=== PATIENT | male | born 1940 | race Hispanic/Latino ===

== ENCOUNTER → 2018-04-23 | Day surgery (SDC) | payer MEDICARE, OTHER ==
[~2018-04-23] MED LIST: AMLODIPINE BESYL5 MG PO; FENTANYL CITRATE/PF 100MCG/2 ML INJ ONE; LOVASTATIN20 MG PO; METFORMIN HCL500 MG PO; MIDAZOLAM HCL 2 MG/2 ML VIAL ONE; PANTOPRAZOLE SO40 MG PO; PROPOFOL IV EMULSION 10 MG/ML 50 ML VIAL ONE; QUINAPRIL HCL40 MG PO; SUCRALFATE1 GM PO; VIT D3 PO
--- OUTSIDE RECORDS SUMMARY | 2018-04-23 06:46 | XMS REPORT | Continuity of Care Document ---
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 01/25/2015 [facility] LEFT UPPER EXTREMITY CELLULITIS Active 01/12/2015 [facility] LEFT ARM INJURY Active 01/12/2015 [facility] NEUTROPENIC SEPSIS Active 09/08/2014 [facility] FALL Active 07/10/2014 [facility] Discharge Diagnosis: Fall 07/10/2014 07/12/2014 [facility] Discharge Diagnosis: Skin tear of elbow without complication 07/10/2014 07/12/2014 [facility] Discharge Diagnosis: Left elbow contusion 07/10/2014 07/12/2014 [facility] LYMPHOMA Active 07/05/2014 [facility] INITIAL STAGING DX:202.8-BLASTIC NK-ANTON Active 01/25/2014 [facility] Diabetes mellitus<sup>2</sup> Active 12/17/2013 Problem 12/29/2017 Data migrated from [facility] on 01/30/15. [facility] ABDOMINAL OR PELVIC SWELLING, MASS, OR LUMP, EPIGASTRIC Active 12/17/2013 Condition 01/04/2014 [facility] DIABETES MELLITUS WITHOUT MENTION OF COMPLICATION, TYPE II OR UNSPECIFIED TYPE, NOT STATED UNCONTROLLED Active 12/17/2013 Condition 01/04/2014 [facility] 235.5 - [facility] Active 12/01/2013 [facility] [place] 413.9/794.31 Active 12/31/2011 [facility] CHEST PAIN Active 12/23/2011 [facility] Diabetes mellitus Active Problem 01/05/2012 [facility] Hyperlipidemia Active Problem 01/05/2012 [facility] Hypertension Active Problem 01/05/2012 [facility] Abdominal mass Resolved Problem 12/29/2017 [facility] Acid reflux Active Problem 12/29/2017 [facility] Back pain Active Problem 12/29/2017 [facility] Carpal tunnel syndrome<sup>1</sup> Resolved Problem 12/29/2017 right wrist [facility] Cholesterol level Resolved Problem 12/29/2017 [facility] Diabetes mellitus Active Problem 12/29/2017 [facility] Hyperlipidemia Active Problem 12/29/2017 [facility] Hypertension Active Problem 12/29/2017 [facility] Hypertension Active Problem 12/29/2017 [facility], [facility] Simple obesity Active Problem 12/29/2017 [facility] Age-related osteoporosis without current pathological fracture 12/17/2017 [facility] Abnormal findings on diagnostic imaging of other specified body structures 12/17/2017 [facility] Personal history of non-Hodgkin lymphomas 12/29/2017 [facility] Type 2 diabetes mellitus without complications 12/29/2017 [facility] care home use of oral hypoglycemic drugs 12/29/2017 [facility] Obesity, unspecified 12/29/2017 [facility] Gastro-esophageal reflux disease without esophagitis 12/29/2017 [facility] Essential hypertension 12/29/2017 [facility] Hyperlipidemia, unspecified 12/29/2017 [facility] Body mass index 33.0-33.9, adult 12/29/2017 [facility] CAROLYN PHUONG PERITONEUM Active [facility] LYMPHOMA NEC-EXTRNOD/NOS Active [facility] CELLULITIS OF ARM Active [facility] 202.80 Active [facility] NON-HODGKIN LYMPHOMA, UNSPECIFIED, UNSPE Active [facility] Medications Medication Details Route Status Patient Instructions Ordering Provider Order Date Source Flumazenil 0.2 mg, Route: IVP, PRN, Dosing Weight 87.955, kg, PRN Benzodiazepine Reversal, Initial dose, Start date: 09/22/17 11:05:00 CDT, Duration: 30 day, Stop date: 10/22/17 11:04:00 CDT Inactive 09/22/2017 [facility] Fentanyl 50 microgram, Route: IVP, Q5Min, Dosing Weight 87.955, kg, PRN Pain Score 7-10, Priority: Routine, Start date: 09/22/17 11:05:00 CDT, Duration: 2 doses or times, Stop date: Limited # of times Inactive 09/22/2017 [facility] Naloxone 0.4 mg, Route: IVP, Q2MIN, Dosing Weight 87.955, kg, PRN Narcotic Reversal, Start date: 09/22/17 11:05:00 CDT, Duration: 8 doses or times, Stop date: Limited # of times Inactive 09/22/2017 [facility] Albuterol 0.83 MG/ML Inhalant Solution 2.49 mg, Route: NEB, Q20Min, Dosing Weight 87.955, kg, PRN Wheezing, Priority: STAT, Start date: 09/22/17 11:05:00 CDT, Duration: 30 day, Stop date: 10/22/17 11:04:00 CDT Inactive 09/22/2017 [facility] Diphenhydramine 12.5 mg, Route: IVP, Drug form: INJ, Q6H, Dosing Weight 87.955, kg, PRN Itching, Start date: 09/22/17 11:05:00 CDT, Duration: 30 day, Stop date: 10/22/17 11:04:00 CDT Inactive 09/22/2017 [facility] Meperidine 12.5 mg, Route: IVP, Q30Min, Dosing Weight 87.955, kg, PRN Other -See Comment, For shivering, Start date: 09/22/17 11:05:00 CDT, Duration: 2 doses or times, Stop date: Limited # of times Inactive 09/22/2017 [facility] Ondansetron 4 mg, Route: IVP, ONCE, Dosing Weight 87.955, kg, PRN Nausea & Vomiting, Start date: 09/22/17 11:05:00 CDT Inactive 09/22/2017 [facility] Promethazine 6.25 mg, Route: IVPB, ONCE, Dosing Weight 87.955, kg, PRN Nausea & Vomiting, Start date: 09/22/17 11:05:00 CDT Inactive 09/22/2017 [facility] 72 HR Scopolamine 0.0139 MG/HR Transdermal Patch 1 patch, Route: TOP, Drug Form: ERFILM, Dosing Weight 87.955, kg, ONCE, Apply behind ear. Avoid use in elderly., Start date: 09/22/17 11:05:00 CDT, Stop date: 09/22/17 11:05:00 CDT No Longer Active 09/22/2017 [facility] Acetaminophen 1,000 mg, Route: IVPB, Drug form: INJ, ONCE, Dosing Weight 87.955, kg, PRN Pain Score 1-3, Start date: 09/22/17 11:05:00 CDT Inactive 09/22/2017 [facility] Oxycodone 5 mg, Route: PO, Drug form: TAB, Q4H, Dosing Weight 87.955, kg, PRN Pain Score 4-6, Start date: 09/22/17 11:05:00 CDT, Duration: 30 day, Stop date: 10/22/17 11:04:00 CDT Inactive 09/22/2017 [facility] Hydromorphone 0.5 mg, Route: IVP, Q5Min, Dosing Weight 87.955, kg, PRN Pain Score 7-10, Start date: 09/22/17 11:05:00 CDT, Duration: 4 doses or times, Stop date: Limited # of times Inactive 09/22/2017 [facility] propofol (ANES) Route: IV, Drug form: INJ, ONCE, Stop date: 09/22/17 11:00:00 CDT Inactive 09/22/2017 [facility] lidocaine (ANES) Route: IV, Drug form: INJ, ONCE, Stop date: 09/22/17 11:00:00 CDT Inactive 09/22/2017 [facility] famotidine (ANES) Route: IV, Drug form: INJ, ONCE, Stop date: 09/22/17 11:00:00 CDT Inactive 09/22/2017 [facility] fentaNYL (ANES) Route: IV, Drug form: INJ, ONCE, Stop date: 09/22/17 11:00:00 CDT Inactive 09/22/2017 [facility] ePHEDrine (ANES) Route: IV, Drug form: INJ, ONCE, Stop date: 09/22/17 11:00:00 CDT Inactive 09/22/2017 [facility] ondansetron (ANES) Route: IV, Drug form: INJ, ONCE, Stop date: 09/22/17 11:00:00 CDT Inactive 09/22/2017 [facility] ceFAZolin (ANES) 1000 mg Route: IV, Drug form: INJ, Start date: 09/22/17 10:22:00 CDT, Stop date: 09/22/17 11:22:00 CDT Inactive 09/22/2017 [facility] Lactated Ringers Injection IV (ANES) 1000 mL Route: IV, Total Volume: 1,000, Start date: 09/22/17 10:22:00 CDT, Stop date: 09/22/17 11:22:00 CDT Inactive 09/22/2017 [facility] Calcium Chloride 0.0014 MEQ/ML / Potassium Chloride 0.004 MEQ/ML / Sodium Chloride 0.103 MEQ/ML / Sodium Lactate 0.028 MEQ/ML Injectable Solution 1,000 mL, Rate: 25 ml/hr, Infuse over: 40 hr, Route: IV, Dosing Weight 87.955 kg, Total Volume: 1,000, Start date: 09/22/17 10:09:00 CDT, Duration: 30 day, Stop date: 10/22/17 10:08:00 CDT, 2.03, m2 Inactive 09/22/2017 [facility] sitaGLIPtin 25 mg oral tablet 25 mg=1 tab, PO, Daily, # 30 tab, 0 Refill(s) Active 09/18/2017 [facility] sucralfate 1 g oral tablet 1 gm=1 tab, PO, QID, # 120 tab, 0 Refill(s) Active 09/18/2017 [facility] Ancef 2 gm, Route: IVPB, ONCE, Dosing Weight 87.955, kg, Start date: 09/18/17 15:38:00 CDT, Stop date: 09/18/17 15:38:00 CDT, Surgical Prophylaxis Only; For patients No Longer Active 09/18/2017 [facility] quinapril 40 mg oral tablet 40 mg=1 tab, PO, Daily, 0 Refill(s) Active 09/16/2017 [facility] lovastatin 20 mg oral tablet 20 mg=1 tab, PO, Daily, 0 Refill(s) Active 09/16/2017 [facility] Januvia 50 mg, 2 tab, Route: PO, Drug form: TAB, QPM, Dosing Weight 80.455, kg, Start date: 01/16/15 17:00:00, Duration: 30 day, Stop date: 02/14/15 17:00:00Notes: Same as Januvia Inactive 01/16/2015 [facility] Keflex 500 mg, 2 cap, Route: PO, Drug form: CAP, ABXQ6H, Dosing Weight 80.455, kg, Start date: 01/16/15 15:00:00, Duration: 14 day, Stop date: 01/30/15 9:00:00Notes: Take on empty stomach. (Same As: Keflex) Inactive 01/16/2015 [facility] sitaGLIPtin 25 mg oral tablet 50 mg=2 tab, PO, QPM, 0 Refill(s) Active 01/16/2015 [facility] pyridoxine 100 mg oral tablet 100 mg=1 tab, PO, Daily, 0 Refill(s) Active 01/16/2015 [facility] docusate sodium 100 mg oral capsule 100 mg=1 cap, PO, Daily, PRN as needed for constipation, 0 Refill(s) Active 01/16/2015 [facility] Metformin 1,000 mg, PO, BID-Meals, 0 Refill(s) Active 01/16/2015 [facility] ramipril 5 mg oral capsule 10 mg=2 cap, PO, Daily, 0 Refill(s) Active 01/16/2015 [facility] Cephalexin 500 MG Oral Capsule [Keflex] 500 mg, PO, ABXQ6H, X 14 day, # 56 caplet, 0 Refill(s) Active 01/16/2015 [facility] Glipizide 5 MG Oral Tablet 2.5 mg=0.5 tab, PO, Before Breakfast, # 30 tab, 0 Refill(s) Active 01/16/2015 [facility] amLODIPine 5 mg oral tablet 5 mg=1 tab, PO, Daily, # 30 tab, 0 Refill(s) Active 01/16/2015 [facility] sitagliptin 50 MG Oral Tablet [Januvia] 50 mg=1 tab, PO, Daily, # 30 tab, 0 Refill(s) Inactive 01/16/2015 [facility] Glucotrol 2.5 mg, 0.5 tab, Route: PO, Drug form: TAB, Daily, Start date: 01/16/15 9:00:00, Duration: 30 day, Stop date: 02/14/15 9:00:00Notes: (Same as: Glucotrol) 30 min before meals. Inactive 01/16/2015 [facility] Amlodipine 5 mg, 1 tab, Route: PO, Drug form: TAB, Daily, Dosing Weight 80.455, kg, Start date: 01/16/15 9:00:00, Duration: 30 day, Stop date: 02/14/15 9:00:00Notes: (Same as: Norvasc) Inactive 01/16/2015 [facility] Ancef + Sodium Chloride 0.9% IV 100 mL 1 gm, Route: IVPB, ABXQ8H, Dosing Weight 80.455, kg, Start date: 01/15/15 22:00:00, Duration: 30 day, Stop date: 02/14/15 14:00:00Notes: (Same As: Ancef, Kefzol) MEDICATION WASTE Product Size: 1000 mg Product Wasted: ___ mg No Longer Active 01/16/2015 [facility] Glucotrol 2.5 mg, 0.5 tab, Route: PO, Drug form: TAB, BID- Meals, Start date: 01/14/15 17:00:00, Duration: 30 day, Stop date: 02/13/15 8:00:00Notes: (Same as: Glucotrol) 30 min before meals. No Longer Active 01/14/2015 [facility] potassium chloride 20 mEq, 1 tab, Route: PO, Drug form: ERTAB, ONCE, Dosing Weight 80.455, kg, Priority: NOW, Start date: 01/14/15 11:16:00, Stop date: 01/14/15 11:16:00Notes: (Same as: K-Dur 20) "Do Not Crush" With food and full glass of water Inactive 01/14/2015 [facility] Januvia 100 mg, 4 tab, Route: PO, Drug form: TAB, QPM, Dosing Weight 80.455, kg, Start date: 01/13/15 17:00:00, Stop date: 02/11/15 17:00:00Notes: Same as Januvia No Longer Active 01/13/2015 [facility] Lovastatin 20 mg, Route: PO, Drug form: TAB, QPM, Dosing Weight 80.455, kg, Start date: 01/13/15 17:00:00, Duration: 30 day, Stop date: 02/11/15 17:00:00 No Longer Active 01/13/2015 [facility] Lipitor 10 mg, 1 tab, Route: PO, Drug form: TAB, QPM, Start date: 01/13/15 17:00:00, Duration: 30 day, Stop date: 02/11/15 17:00:00Notes: (Same As: Lipitor) No Longer Active 01/13/2015 [facility] Zofran 4 mg, 2 mL, Route: IV, Drug form: INJ, Q6H, Dosing Weight 80.455, kg, PRN Nausea, Start date: 01/13/15 14:50:00, Duration: 30 day, Stop date: 02/12/15 14:49:00Notes: (Same as: Zofran) MEDICATION WASTE Product Size: 4 mg Product Wasted: ___ mg No Longer Active 01/13/2015 [facility] Insulin, Aspart, Human 8 unit, 0.08 mL, Route: SUB-Q, Drug form: SOLN, TID-Before Meals, Dosing Weight 80.455, kg, PRN Blood Glucose Results, Start date: 01/13/15 14:24:00, Duration: 30 day, Stop date: 02/12/15 14:23:00Notes: Roll in palms of hands gently; Do not shake vigorously. (Same as: NovoLOG) "single patient use only" Stable for 28 days at room temperature. Expires in days from Date No Longer Active 01/13/2015 [facility] Dextrose 50% Syringe 25 gm, 50 mL, Route: IVP, Drug Form: INJ, Dosing Weight 80.455, kg, PRN, PRN Blood Glucose Results, Start date: 01/13/15 14:24:00, Duration: 30 day, Stop date: 02/12/15 14:23:00 No Longer Active 01/13/2015 [facility] Glucagon 1 mg, Route: IM, Drug form: PDR/INJ, PRN, Dosing Weight 80.455, kg, PRN Blood Glucose Results, Start date: 01/13/15 14:24:00, Duration: 30 day, Stop date: 02/12/15 14:23:00 No Longer Active 01/13/2015 [facility] NS 1,000 mL 1,000 mL, Rate: 100 ml/hr, Infuse over: 10 hr, Route: IV, Dosing Weight 80.455 kg, Total Volume: 1,000, Start date: 01/13/15 12:44:00, Duration: 30 day, Stop date: 02/12/15 12:43:00 No Longer Active 01/13/2015 [facility] Sodium Chloride 0.154 MEQ/ML Injectable Solution 250 mL, 250 ml/hr, Infuse Over: 1 hr, Route: IV, 250, Drug form: INJ, ONCE, Priority: STAT, Dosing Weight 80.455 kg, Start date: 01/13/15 12:44:00, Duration: 1 doses or times, Stop date: 01/13/15 12:44:00 Inactive 01/13/2015 [facility] Enoxaparin 40 mg, 0.4 mL, Route: SUB-Q, Drug form: INJ, [id number], Dosing Weight 80.455, kg, Start date: 01/13/15 12:00:00, Duration: 30 day, Stop date: 02/11/15 12:00:00Notes: (Same as: Lovenox) No Longer Active 01/13/2015 [facility] quinapril 40 mg, Route: PO, Drug form: TAB, Daily, Dosing Weight 80.455, kg, Start date: 01/13/15 9:00:00, Duration: 30 day, Stop date: 02/11/15 9:00:00 No Longer Active 01/13/2015 [facility] Vitamin B6 100 mg, 1 tab, Route: PO, Drug form: TAB, Daily, Dosing Weight 80.455, kg, Start date: 01/13/15 9:00:00, Duration: 30 day, Stop date: 02/11/15 9:00:00Notes: (Same as: Vitamin B6) No Longer Active 01/13/2015 [facility] pioglitazone 30 mg, 1 tab, Route: PO, Drug form: TAB, Daily, Dosing Weight 80.455, kg, Start date: 01/13/15 9:00:00, Duration: 30 day, Stop date: 02/11/15 9:00:00Notes: (Same as: Actos) No Longer Active 01/13/2015 [facility] pantoprazole 40 mg, 1 tab, Route: PO, Drug form: ECTAB, Daily, Dosing Weight 80.455, kg, Start date: 01/13/15 9:00:00, Duration: 30 day, Stop date: 02/11/15 9:00:00Notes: Tablet should not be chewed or crushed. ( Same as: Protonix) No Longer Active 01/13/2015 [facility] Glipizide 2.5 MG / Metformin hydrochloride 500 MG Oral Tablet 2 tab, Route: PO, Drug Form: TAB, Dosing Weight 80.455, kg, BID, Start date: 01/13/15 9:00:00, Duration: 30 day, Stop date: 02/11/15 17:00:00 No Longer Active 01/13/2015 [facility] gabapentin 300 MG Oral Capsule 300 mg, 1 cap, Route: PO, Drug form: CAP, BID, Dosing Weight 80.455, kg, Start date: 01/13/15 9:00:00, Duration: 30 day, Stop date: 02/11/15 17:00:00Notes: (Same as: Neurontin) No Longer Active 01/13/2015 [facility] Amlodipine 10 mg, 2 tab, Route: PO, Drug form: TAB, Daily, Dosing Weight 80.455, kg, Start date: 01/13/15 9:00:00, Duration: 30 day, Stop date: 02/11/15 9:00:00Notes: (Same as: Norvasc) No Longer Active 01/13/2015 [facility] Allopurinol 300 mg, 1 tab, Route: PO, Drug form: TAB, Daily, Dosing Weight 80.455, kg, Start date: 01/13/15 9:00:00, Duration: 30 day, Stop date: 02/11/15 9:00:00Notes: (Same as: Zyloprim) No Longer Active 01/13/2015 [facility] Altace 10 mg, 2 cap, Route: PO, Drug form: CAP, Daily, Start date: 01/13/15 9:00:00, Duration: 30 day, Stop date: 02/11/15 9:00:00Notes: (Same as:Altace) No Longer Active 01/13/2015 [facility] Glucotrol 5 mg, 1 tab, Route: PO, Drug form: TAB, BID-Meals, Start date: 01/13/15 8:00:00, Duration: 30 day, Stop date: 02/11/15 17:00:00Notes: (Same as: Glucotrol) 30 min before meals. No Longer Active 01/13/2015 [facility] Glucophage 1,000 mg, 2 tab, Route: PO, Drug form: TAB, BID-Meals, Start date: 01/13/15 8:00:00, Duration: 30 day, Stop date: 02/11/15 17:00:00Notes: (Same as: Glucophage) Take with meal No Longer Active 01/13/2015 [facility] Sucralfate 1 gm, 1 tab, Route: PO, Drug form: TAB, Before Meals & Bedtime, Dosing Weight 80.455, kg, Start date: 01/13/15 7:30:00, Duration: 30 day, Stop date: 02/11/15 21:00:00Notes: May interfere w/enteral f eeds - Take 1 hr before or 2 hr after antacids, dairy pdt, meals & minerals - On empty stomach. (Same As: Carafate) No Longer Active 01/13/2015 [facility] Vancomycin 1 gm, 200 mL, Route: IVPB, Drug form: INJ, [id number], Dosing Weight 79.545, kg, Start date: 01/13/15 7:00:00, Duration: 30 day, Stop date: 02/11/15 19:00:00Notes: TIME CRITICAL MEDICATION No Longer Active 01/13/2015 [facility] Vancomycin 1,200 mg, Route: IVPB, Drug form: INJ, ABXQ8H, Dosing Weight 79.545, kg, TIME CRITICAL MEDICATION, Start date: 01/13/15 3:00:00, Duration: 30 day, Stop date: 02/11/15 19:00:00Notes: TIME CRITICAL MED ICATION (Same As: Vancocin) Infusion rate 2001 mg: infuse over 2.5 hours MEDICATION WASTE Product Size: 1000 mg Product Wasted: ___ mg No Longer Active 01/13/2015 [facility] Docusate 100 mg, 1 cap, Route: PO, Drug form: CAP, Daily, Dosing Weight 80.455, kg, PRN as needed for constipation, Start date: 01/12/15 21:13:00, Duration: 30 day, Stop date: 02/11/15 21:12:00Notes: (Same as: Colace) (Do Not Crush) No Longer Active 01/13/2015 [facility] Acetaminophen 325 MG / Hydrocodone Bitartrate 5 MG Oral Tablet 1 tab, Route: PO, Drug Form: TAB, Dosing Weight 80.455, kg, Q4H, PRN Pain Score 1-3, Start date: 01/12/15 21:11:00, Duration: 30 day, Stop date: 02/11/15 21:10:00Notes: (Same as: Valier 325/5) Do not exceed 4gm/day of acetaminophen. No Longer Active 01/13/2015 [facility] Acetaminophen 325 MG / Hydrocodone Bitartrate 5 MG Oral Tablet 2 tab, Route: PO, Drug Form: TAB, Dosing Weight 80.455, kg, Q4H, PRN Pain Score 4-6, Start date: 01/12/15 21:10:00, Duration: 30 day, Stop date: 02/11/15 21:09:00Notes: (Same as: Valier 325/5) Do not exceed 4gm/day of acetaminophen. No Longer Active 01/13/2015 [facility] Clindamycin 600 mg, 4 mL, Route: IVPB, ABXQ8H, Dosing Weight 79.545, kg, Start date: 01/12/15 21:00:00, Duration: 30 day, Stop date: 02/11/15 13:00:00Notes: (clindamycin 150 mg/1 ml (600 mg/4 ml VL) INJ) (Same As: Cleocin) No Longer Active 01/13/2015 [facility] pantoprazole 40 mg oral enteric coated tablet 40 mg=1 tab, PO, Daily, # 30 tab, 0 Refill(s) Active 01/13/2015 [facility] lovastatin 20 mg oral tablet 20 mg=1 tab, PO, QPM, # 30 tab, 0 Refill(s) No Longer Active 01/13/2015 [facility] gabapentin 300 MG Oral Capsule 300 mg=1 cap, PO, BID, # 90 cap, 1 Refill(s) Active 01/13/2015 [facility] Vitamin D3 400 intl units oral capsule 400 IntlUnit=1 cap, PO, Daily, 0 Refill(s) Active 01/13/2015 [facility] Vitamin B6 100 mg oral tablet 100 mg=1 tab, PO, Daily, # 10 tab, 0 Refill(s) Active 01/13/2015 [facility] allopurinol 300 mg oral tablet 300 mg=1 tab, PO, Daily, # 30 tab, 0 Refill(s) Active 01/13/2015 [facility] pioglitazone 30 mg oral tablet 30 mg=1 tab, PO, Daily, # 30 tab, 0 Refill(s) No Longer Active 01/13/2015 [facility] Docusate Daily, 0 Refill(s) No Longer Active 01/13/2015 [facility] sucralfate 1 g oral tablet 1 gm=1 tab, PO, Before Meals & Bedtime, # 120 tab, 3 Refill(s) Active 01/13/2015 [facility] sitagliptin 100 MG Oral Tablet [Januvia] 100 mg=1 tab, PO, QPM, # 30 tab, 0 Refill(s) No Longer Active 01/13/2015 [facility] Insulin, Aspart, Human 2 unit, 0.02 mL, Route: SUB-Q, Drug form: SOLN, TID-Before Meals, Dosing Weight 79.545, kg, PRN Blood Glucose Results, Start date: 01/12/15 19:24:00, Duration: 30 day, Stop date: 02/11/15 19:23:00Notes: Roll in palms of hands gently; Do not shake vigorously. (Same as: NovoLOG) "single patient use only" Stable for 28 days at room temperature. Expires in days from Date No Longer Active 01/13/2015 [facility] Dextrose 50% Syringe 12.5 gm, 25 mL, Route: IVP, Drug Form: INJ, Dosing Weight 79.545, kg, PRN, PRN Blood Glucose Results, Start date: 01/12/15 19:24:00, Duration: 30 day, Stop date: 02/11/15 19:23:00 No Longer Active 01/13/2015 [facility] Glucagon 1 mg, Route: IM, Drug form: PDR/INJ, PRN, Dosing Weight 79.545, kg, PRN Blood Glucose Results, Start date: 01/12/15 19:24:00, Duration: 30 day, Stop date: 02/11/15 19:23:00 No Longer Active 01/13/2015 [facility] Saline Flush 0.9% 10 mL, Route: IVP, Drug Form: INJ, Dosing Weight 79.545, kg, PRN, PRN Line Flush, Start date: 01/12/15 17:55:00, Duration: 30 day, Stop date: 02/11/15 17:54:00Notes: (Same as: BD Posiflush) Inactive 01/12/2015 [facility] Vancomycin 2,000 mg, 500 mL, Route: IVPB, Drug form: SOLN, ONCE, Dosing Weight 79.545, kg, TIME CRITICAL MEDICATION, Priority: STAT, Start date: 01/12/15 17:55:00, Stop date: 01/12/15 17:55:00Notes: TIME CRITICAL MEDICATION Same as: Vancocin Infusion rate 2001 mg: infuse over 2.5 hours Inactive 01/12/2015 [facility] Acetaminophen 325 MG / Hydrocodone Bitartrate 10 MG Oral Tablet [Valier 10/325] 1 tab, Route: PO, Dosing Weight 81.818, kg, ONCE, Start date: 12/31/13 15:41:00, Stop date: 12/31/13 15:41:00 Inactive 12/31/2013 [facility] Hydralazine 10 mg, Route: IVP, Q20Min, Dosing Weight 81.818, kg, PRN Elevated BP, Start date: 12/31/13 15:41:00, Duration: 2 doses or times, Stop date: Limited # of times Inactive 12/31/2013 [facility] Hydromorphone 0.5 mg, Route: IVP, Q5Min, Dosing Weight 81.818, kg, PRN Pain Score 7-10, Start date: 12/31/13 15:41:00, Duration: 4 doses or times, Stop date: Limited # of times Inactive 12/31/2013 [facility] Fentanyl 25 microgram, Route: IVP, Q5Min, Dosing Weight 81.818, kg, PRN Pain Score 4-6, Start date: 12/31/13 15:41:00, Duration: 4 doses or times, Stop date: Limited # of times Inactive 12/31/2013 [facility] Naloxone 0.04 mg, Route: IVP, Q2MIN, Dosing Weight 81.818, kg, PRN Narcotic Reversal, Start date: 12/31/13 15:41:00, Duration: 8 doses or times, Stop date: Limited # of times Inactive 12/31/2013 [facility] Oxycodone 5 mg, Route: PO, Drug form: TAB, Q4H, Dosing Weight 81.818, kg, PRN Pain Score 4-6, Start date: 12/31/13 15:41:00, Duration: 30 day, Stop date: 01/30/14 15:40:00 Inactive 12/31/2013 [facility] Flumazenil 0.2 mg, Route: IVP, PRN, Dosing Weight 81.818, kg, PRN Benzodiazepine Reversal, Initial dose, Start date: 12/31/13 15:41:00, Duration: 30 day, Stop date: 01/30/14 15:40:00 Inactive 12/31/2013 [facility] Metoprolol 1 mg, Route: IVP, Q5Min, Dosing Weight 81.818, kg, PRN Other -See Comment, Start date: 12/31/13 15:41:00, Duration: 5 doses or times, Stop date: Limited # of times Inactive 12/31/2013 [facility] Ondansetron 4 mg, Route: IVP, ONCE, Dosing Weight 81.818, kg, PRN Nausea & Vomiting, Start date: 12/31/13 15:41:00 Inactive 12/31/2013 [facility] Docusate Sodium 100 MG Oral Capsule [Colace] 100 mg=1 cap, PO, BID, Constipation, # 20 cap, 0 Refill(s) Active 12/31/2013 [facility] Acetaminophen 325 MG / Hydrocodone Bitartrate 5 MG Oral Tablet [Valier 5/325] 1 tab, PO, Q4-6H, as needed for pain, # 30 tab, 0 Refill(s) Active 12/31/2013 [facility] Calcium Chloride 0.0014 MEQ/ML / Potassium Chloride 0.004 MEQ/ML / Sodium Chloride 0.103 MEQ/ML / Sodium Lactate 0.028 MEQ/ML Injectable Solution 1,000 mL, Rate: 25 ml/hr, Infuse over: 40 hr, Route: IV, Dosing Weight 81.818 kg, Total Volume: 1,000, Start date: 12/31/13 10:04:00, Duration: 30 day, Stop date: 01/30/14 10:03:00 Inactive 12/31/2013 [facility] Cefoxitin 2 gm, Route: IVPB, ONCALL, Dosing Weight 85, kg, Start date: 12/28/13 16:00:00, Duration: 5 day, Stop date: 01/02/14 15:59:00Notes: (Same As: Mefoxin) No Longer Active 12/28/2013 [facility] ibuprofen 800 mg oral tablet 800 mg=1 tab, PO, Q8H, Pain, Take with food, # 30 tab, 0 Refill(s)Special Instructions: Take with food Active 12/28/2013 [facility] Vitamin D3 2000 intl units oral capsule 0 Refill(s) Active 12/28/2013 [facility] AMLODIPINE BESY-BENAZEPRIL HCL CAPS Active 12/17/[facility] GLIPIZIDE-METFORMIN HCL 2.5-500 MG TABS Active 12/17/2013 [facility] QUINAPRIL HCL 40 MG TABS Active 12/17/2013 [facility] Lipitor 10 mg, 1 tab, Route: PO, Drug form: TAB, QPM, Start date: 12/24/11 17:00:00, Duration: 30 day, Stop date: 01/22/12 17:00:00 PO No Longer Active [facility] 12/24/2011 [facility] lovastatin 20 mg, Route: PO, Drug form: TAB, QNoon, Start date: 12/24/11 12:00:00, Duration: 30 day, Stop date: 01/22/12 12:00:00 PO No Longer Active [facility] 12/24/2011 [facility] Altace 10 mg, 2 cap, Route: PO, Drug form: CAP, Daily, Start date: 12/24/11 9:00:00, Duration: 30 day, Stop date: 01/22/12 9:00:00 PO No Longer Active [facility] 12/24/2011 [facility] olmesartan 10 mg, 2 tab, Route: PO, Drug form: TAB, Daily, Start date: 12/24/11 9:00:00, Duration: 30 day, Stop date: 01/22/12 9:00:00 PO No Longer Active [facility] 12/24/2011 [facility] Glucophage 500 mg, 1 tab, Route: PO, Drug form: TAB, Daily, Start date: 12/24/11 9:00:00, Duration: 30 day, Stop date: 01/22/12 9:00:00 PO No Longer Active [facility] 12/24/2011 [facility] DiaBeta 2.5 mg, 1 tab, Route: PO, Drug form: TAB, Daily, Start date: 12/24/11 9:00:00, Duration: 30 day, Stop date: 01/22/12 9:00:00 PO No Longer Active [facility] 12/24/2011 [facility] quinapril 40 mg, Route: PO, Drug form: TAB, Daily, Start date: 12/24/11 9:00:00, Duration: 30 day, Stop date: 01/22/12 9:00:00 PO No Longer Active [facility] 12/24/2011 [facility] glipiZIDE-metformin 2.5 mg-250 mg oral tablet 1 tab, Route: PO, Drug Form: TAB, Daily, Start date: 12/24/11 9:00:00, Duration: 30 day, Stop date: 01/22/12 9:00:00 PO No Longer Active [facility] 12/24/2011 [facility] amLODipine 10 mg, 2 tab, Route: PO, Drug form: TAB, Daily, Start date: 12/24/11 9:00:00, Duration: 30 day, Stop date: 01/22/12 9:00:00 PO No Longer Active [facility] 12/24/2011 [facility] Saline Flush 0.9% 5 ml, Route: IVP, Drug Form: INJ, Q12H, Start date: 12/23/11 21:00:00, Duration: 30 day, Stop date: 01/22/12 9:00:00 IVP No Longer Active [facility] 12/24/2011 [facility] Ambien 5 mg, 1 tab, Route: PO, Drug form: TAB, Bedtime, PRN Insomnia, Start date: 12/23/11 18:57:00, Duration: 30 day, Stop date: 01/22/12 18:56:00 PO No Longer Active [facility] 12/23/2011 [facility] Tylenol 650 mg, 2 tab, Route: PO, Drug form: TAB, Q4H, PRN Pain, Start date: 12/23/11 18:57:00, Duration: 30 day, Stop date: 01/22/12 18:56:00 PO No Longer Active [facility] 12/23/2011 [facility] aspirin 325 mg tablet, enteric coated 325 mg, 1 tab, Route: PO, Drug form: ECTAB, Q24H, Start date: 12/23/11 18:00:00, Duration: 30 day, Stop date: 01/21/12 18:00:00 PO No Longer Active [facility] 12/23/2011 [facility] nitroglycerin 0.4 mg sublingual tablet 0.4 mg, 1 tab, Route: SL, Drug form: TAB, Q5Min, PRN Chest Pain, Start date: 12/23/11 17:50:00, Duration: 30 day, Stop date: 01/22/12 17:49:00 SL No Longer Active [facility] 12/23/2011 [facility] atropine 0.5 mg, 5 mL, Route: IVP, Drug form: INJ, PRN, PRN Bradycardia, Start date: 12/23/11 17:50:00, Duration: 30 day, Stop date: 01/22/12 17:49:00 IVP No Longer Active [facility] 12/23/2011 [facility] insulin aspart 1 unit, 0.01 mL, Route: SUB-Q, Drug form: SOLN, Bedtime, PRN Blood Glucose Results, Start date: 12/23/11 17:13:00, Duration: 30 day, Stop date: 01/22/12 17:12:00 SUB-Q No Longer Active [facility] 12/23/2011 [facility] glucagon 1 mg, Route: IM, Drug form: PDR/INJ, PRN, PRN Blood Glucose Results, Start date: 12/23/11 17:13:00, Duration: 30 day, Stop date: 01/22/12 17:12:00 IM No Longer Active [facility] 12/23/2011 [facility] Dextrose 50% Syringe 12.5 gm, 25 mL, Route: IVP, Drug Form: INJ, PRN, PRN Blood Glucose Results, Start date: 12/23/11 17:13:00, Duration: 30 day, Stop date: 01/22/12 17:12:00 IVP No Longer Active [facility] 12/23/2011 [facility] Saline Flush 0.9% 5 ml, Route: IVP, Drug Form: INJ, PRN, PRN Line Flush, Start date: 12/23/11 17:13:00, Duration: 30 day, Stop date: 01/22/12 17:12:00 IVP No Longer Active [facility] 12/23/2011 [facility] morphine Sulfate 2 mg, 1 mL, Route: IVP, Drug form: INJ, Q15Min, PRN Chest Pain, Start date: 12/23/11 17:13:00, Duration: 2 doses or times, Stop date: Limited # of times IVP No Longer Active [facility] 12/23/2011 [facility] nitroglycerin SL Tab 0.4 mg, 1 tab, Route: SL, Drug form: TAB, Q5Min, PRN Chest Pain, Start date: 12/23/11 17:13:00, Duration: 3 doses or times, Stop date: Limited # of times SL No Longer Active [facility] 12/23/2011 [facility] codeine-promethazine 10 mg-6.25 mg/5 mL oral syrup 5 mL, PO, Q4H, PRN, as needed for cough, Substitution Allowed, Soft Stop PO On Hold 12/23/2011 [facility] quinapril 40 mg oral tablet 40 mg, 1 tab, PO, Daily, Substitution Allowed PO On Hold [facility] 12/23/2011 [facility] amLODipine 10 mg oral tablet 10 mg, 1 tab, PO, Daily, Substitution Allowed PO On Hold [facility] 12/23/2011 [facility] lovastatin 20 mg oral tablet 20 mg, 1 tab, PO, QNoon, Substitution Allowed PO On Hold [facility] 12/23/2011 [facility] Janumet 50 mg/500 mg oral tablet 1 tab, PO, BID, Substitution Allowed, Soft Stop PO On Hold [facility] 12/23/2011 [facility] Saline Flush 0.9% 5 ml, Route: IVP, Drug Form: INJ, PRN, PRN Line Flush, Start date: 12/23/11 15:38:00, Duration: 24 hr, Stop date: 12/24/11 15:37:00 IVP No Longer Active [facility] 12/23/2011 [facility] Allergies, Adverse Reactions, Alerts Substance Category Reaction Severity Reaction type Status Date Reported Comments Source doxycycline Assertion Drug allergy Active [facility] Immunizations Immunization Date Given Site Status Last Updated Comments Source pneumococcal 23-valent vaccine 12/03/2013 Left Deltoid completed [facility] Results Order Name Results Value Reference Range Date Interpretation Comments Source SPECIAL CHEMISTRY Hgb A1C 6.5 % <=5.6 % 09/18/2017 [facility] CHEM PANEL A/G Ratio 1.3 0.7 - 1.6 09/18/2017 [facility] CHEM PANEL Globulin 3.0 g/dL 2.7 - 4.2 09/18/2017 [facility] CHEM PANEL B/C Ratio 11 6 - 25 09/18/2017 [facility] CHEM PANEL AGAP 7.2 meq/L 10.0 - 20.0 09/18/2017 [facility] CHEM PANEL eGFR 87 mL/min/1.73m2 09/18/2017 Result Comment: The eGFR is calculated using the CKD-EPI formula. In most young, healthy individuals the eGFR will be >90 mL/min/1.73m2. The eGFR declines with age. An eGFR of 60-89 may be normal in some populations, particularly the elderly, for whom the CKD-EPI formula has not been extensively validated. Use of the eGFR is not recommended in the following populations: Individuals with unstable creatinine concentrations, including patients and those with serious co-morbid conditions. Patients with extremes in muscle mass or diet. The data above are obtained from the National Kidney Disease Education Program (NKDEP) which additionally recommends that when the eGFR is used in patients with extremes of body mass index for purposes of drug dosing, the eGFR should be multiplied by the estimated BMI. [facility] CHEM PANEL AST 22 unit/L 0 - 37 09/18/2017 [facility] CHEM PANEL ALT 27 unit/L 0 - 65 09/18/2017 [facility] CHEM PANEL Bili Total 0.3 mg/dL 0.2 - 1.3 09/18/2017 [facility] CHEM PANEL Alk Phos 64 unit/L 39 - 136 09/18/2017 [facility] CHEM PANEL Total Protein 6.9 g/dL 6.4 - 8.4 09/18/2017 [facility] CHEM PANEL Albumin Lvl 3.9 g/dL 3.5 - 5.0 09/18/2017 [facility] CHEM PANEL BUN 9 mg/dL 7 - 22 09/18/2017 [facility] CHEM PANEL Glucose Lvl 72 mg/dL 70 - 99 09/18/2017 [facility] CHEM PANEL Creatinine Lvl 0.80 mg/dL 0.50 - 1.40 09/18/2017 [facility] CHEM PANEL CO2 31 meq/L 24 - 32 09/18/2017 [facility] CHEM PANEL Chloride Lvl 107 meq/L 95 - 109 09/18/2017 [facility] CHEM PANEL Calcium Lvl 8.6 mg/dL 8.5 - 10.5 09/18/2017 [facility] CHEM PANEL Potassium Lvl 4.2 meq/L 3.5 - 5.1 09/18/2017 [facility] CHEM PANEL Sodium Lvl 141 meq/L 135 - 145 09/18/2017 [facility] RBC 4.14 M/CMM 4.70 - 6.10 09/18/2017 [facility] Hgb 12.7 g/dL 14.0 - 18.0 09/18/2017 [facility] WBC 6.2 K/CMM 3.7 - 10.4 09/18/2017 [facility] MCV 92.2 fL 80.0 - 94.0 09/18/2017 [facility] MCH 30.6 pg 27.0 - 31.0 09/18/2017 [facility] Hct 38.2 % 42.0 - 54.0 09/18/2017 [facility] Platelet 132 K/CMM 133 - 450 09/18/2017 [facility] MPV 12.1 fL 7.4 - 10.4 09/18/2017 [facility] RDW 13.3 % 11.5 - 14.5 09/18/2017 [facility] MCHC 33.2 g/dL 32.0 - 36.0 09/18/2017 [facility] RBC Morph Normal (09/18/17 3:39 PM) 09/18/2017 [facility] Lymphocytes 29.1 % 20.0 - 40.0 09/18/2017 [facility] Segs 58.9 % 45.0 - 75.0 09/18/2017 [facility] Basophils 0.8 % 0.0 - 1.0 09/18/2017 [facility] Segs-Bands # 3.7 K/CMM 1.5 - 8.1 09/18/2017 [facility] Lymphocytes # 1.8 K/CMM 1.0 - 5.5 09/18/2017 [facility] Eosinophils 4.0 % 0.0 - 4.0 09/18/2017 [facility] Large Plt Few 09/18/2017 [facility] Eosinophils # 0.2 K/CMM 0.0 - 0.5 09/18/2017 [facility] Monocytes 7.2 % 2.0 - 12.0 09/18/2017 [facility] Monocytes # 0.4 K/CMM 0.0 - 0.8 09/18/2017 [facility] CHEM PANEL eGFR 83 mL/min/1.73m2 09/10/2017 Result Comment: The eGFR is calculated using the CKD-EPI formula. In most young, healthy individuals the eGFR will be >90 mL/min/1.73m2. The eGFR declines with age. An eGFR of 60-89 may be normal in some populations, particularly the elderly, for whom the CKD-EPI formula has not been extensively validated. Use of the eGFR is not recommended in the following populations: Individuals with unstable creatinine concentrations, including patients and those with serious co-morbid conditions. Patients with extremes in muscle mass or diet. The data above are obtained from the National Kidney Disease Education Program (NKDEP) which additionally recommends that when the eGFR is used in patients with extremes of body mass index for purposes of drug dosing, the eGFR should be multiplied by the estimated BMI. [facility] CHEM [facility] Creatinine 0.9 mg/dL 0.5 - 1.4 09/10/2017 [facility] Chest/Abdomen/Pelvis w IV contrast CT Chest/Abdomen/Pelvis w IV contrast CT EXAM: CT of the chest, abdomen, and pelvis with IV contrast INDICATION: Follicular lymphoma, follow-up COMPARISON: 01/13/2015 CT chest and abdomen, 02/03/2016 PET/CT Technique: Axial CT images through the chest, abdomen, and pelvis were obtained with IV contrast. Coronal and sagittal reformats were obtained. Contrast: 100 cc of IV Visipaque contrast material was used for the exam. Oral contrast was administered. CT Radiation Dose DLP 866 mGy-cm FINDINGS: CHEST: 3 mm left upper lobe pulmonary nodule is noted on series 4 image 35. No other pulmonary nodules identified. No consolidation, pneumothorax, or pleural effusion identified. No endobronchial abnormalities evident. No threshold enlarged hilar, mediastinal, or axillary lymph nodes identified. No cardiomegaly or pericardial effusion. Main pulmonary artery and thoracic aorta are normal in caliber. ABDOMEN: Liver, spleen, adrenal glands, and pancreas are within normal limits. Gallbladder is normal. No hydroureteronephrosis or urolithiasis identified. No focal renal lesions evident. Small bowel and colon are nondilated. Oral contrast reaches the transverse colon. The appendix is normal. Abdominal aorta is normal in caliber. Soft tissue attenuation the partially surrounds the celiac artery. There is near-complete circumferential soft tissue attenuation around the superior mesenteric artery and its branches in the central mesentery. The soft tissue attenuation measures up to 7.1 x 6.1 cm in maximal axial dimension, relatively unchanged in size dating back to at least 01/13/2015. No threshold enlarged periaortic, retroperitoneal, or mesenteric lymph nodes identified. PELVIS: Circumferential bladder wall thickening is similar to previous studies and likely represents normal variation. No pelvic mass, free fluid, or lymphadenopathy identified. No suspicious lytic or blastic osseous lesions evident. IMPRESSION: Soft tissue attenuation surrounds the superior mesenteric artery and branches in the central mesenteric root, relatively unchanged dating back to 01/13/2015. PET/CT may be helpful to assess for residual metabolic activity. No evidence for new or worsening lymphoma/metastatic disease otherwise identified. No acute cardiopulmonary findings. SL: [id number] 09/10/2017 - - Read by: Luisito Holliday MD Dictated Date/time: 09/10/17 15:24 Electronically Signed by: Luisito Holliday MD 09/10/17 15:38 FINAL REPORT [facility] Bone Density Scan Bone Density Scan Patient Name: DARRICK ALY : 1940; Age: 77 years y/o Male MR: [id number] Study: Bone Density Scan 09/10/2017 10:50 AM CDT Clinical Indication: - C82.93 Follicular lymphoma, unspecified, intra- abdominal lymph nodes. COMPARISON: None FINDINGS: The axial lumbar bone mineral density is 13% of the expected age matched bone mass with a T-score 1.3. Axial lumbar average BMD is 1.23 g/cm2. The left femoral neck bone mineral density is 105% of the expected age matched bone mass with a T-score of 0.4. Left femoral neck BMD is 1.02 g/cm2. The total femoral BMD is 1.20 g/cm2. IMPRESSION: 1. Normal bone mineral density of the lumbar spine. 2. Normal bone mineral density of the left femoral neck. The World Health Organization has established that OSTEOPOROSIS occurs at -2.5 or more standard deviations (SD) below peak bone mass. OSTEOPENIA (low bone mass) occurs at -1.0 standard deviations to -2.5 standard deviations below peak bone mass. SL: [id number] 09/10/2017 - - Read by: Marko Du MD Dictated Date/time: 09/10/17 11:13 Electronically Signed by: Marko Du MD 09/10/17 11:14 FINAL REPORT [facility] PET CT Lymphoma restaging PET CT Lymphoma restaging PET CT Lymphoma restaging TECHNIQUE: 16.1 mCis of FDG were administered intravenously and a series of overlapping images were obtained from the skull base to the proximal thighs utilizing a PET/CT hybrid device. The CT was utilized for attenuation correction and anatomic correlation and not as an independent diagnostic study. BLOOD GLUCOSE: 68 mg/dl COMPARISON: PET scan 01/28/2015 CLINICAL HISTORY: C85.90 Non-Hodgkin lymphoma, unspecified, unspecified site; FINDINGS: HEAD AND NECK: No abnormal activity is visualized CHEST: No enlarged or hypermetabolic lymph nodes are visualized in the thorax. ABDOMEN AND PELVIS: Ill-defined mass centrally in the mesentery persists without significant change from previous PET scan. It is difficult to separate the mesenteric mass from the adjacent bowel loops. Maximum SUV is 3.1, unchanged from PET scan of 01/28/2015. No new FDG avid focus is present in the abdomen or pelvis. No retroperitoneal or pelvic lymphadenopathy is present. Physiologic activity is visualized in the solid organs, genitourinary tract and gastrointestinal tract. SKELETON: No abnormal activity is visualized IMPRESSION: Stable exam. No significant interval change from previous PET scan of 01/28/2015 SL:[id number] 02/03/2016 - - Read by: Gage Roa MD Dictated Date/time: 02/05/16 08:50 Electronically Signed by: Gage Roa MD 02/05/16 09:10 FINAL REPORT [facility] Segs-Bands # 4.0 K/CMM 1.5 - 8.1 02/28/2015 [facility] Basophils # 0.1 K/CMM 0.0 - 0.2 02/28/2015 [facility] HEMATOLOGY Monocytes 5.0 % 2.0 - 12.0 02/28/2015 [facility] Lymphocytes 17.0 % 20.0 - 40.0 02/28/2015 [facility] Segs 66.0 % 45.0 - 75.0 02/28/2015 [facility] Bands 6.0 % 0.0 - 11.0 02/28/2015 [facility] Eosinophils # 0.1 K/CMM 0.0 - 0.5 02/28/2015 [facility] Lymphocytes # 0.9 K/CMM 1.0 - 5.5 02/28/2015 [facility] Monocytes # 0.3 K/CMM 0.0 - 0.8 02/28/2015 [facility] Promyelocytes 1.0 % <=0.0 % 02/28/2015 [facility] Myelocytes 2.0 % <=0.0 % 02/28/2015 [facility] Eosinophils 1.0 % 0.0 - 4.0 02/28/2015 [facility] Basophils 1.0 % 0.0 - 1.0 02/28/2015 [facility] Metamyelocytes 1.0 % 0.0 - 1.0 02/28/2015 [facility] Plt Morph Normal (02/28/15 12:22 PM) 02/28/2015 [facility] Atypical Lymphs 0.0 % <=0.0 % 02/28/2015 [facility] RBC Morph Normal (02/28/15 12:22 PM) 02/28/[address] [facility] [address] Cell [address] 100 02/28/2015 [facility] MPV 11.4 fL 7.4 - 10.4 02/28/2015 [facility] Platelet 111 K/CMM 133 - 450 02/28/2015 [facility] RDW 17.2 % 11.5 - 14.5 02/28/2015 [facility] MCHC 31.8 g/dL 32.0 - 36.0 02/28/2015 [facility] MCH 28.4 pg 27.0 - 31.0 02/28/2015 [facility] MCV 89.1 fL 80.0 - 94.0 02/28/2015 [facility] Hct 35.3 % 42.0 - 54.0 02/28/2015 [facility] Hgb 11.2 g/dL 14.0 - 18.0 02/28/2015 [facility] RBC 3.96 M/CMM 4.70 - 6.10 02/28/2015 [facility] WBC 5.5 K/CMM 3.7 - 10.4 02/28/2015 [facility] PET CT Lymphoma restaging PET CT Lymphoma restaging PET/CT SCAN: TECHNIQUE: 15.1 mCi of FDG were administered intravenously and a series of overlapping emission images were obtained from the skull base to the proximal thighs utilizing a PET/CT hybrid device. The CT was utilized for attenuation correction and anatomic correlation and not as an independent diagnostic study. BLOOD GLUCOSE: 67 COMPARISON: PET scan, 01/29/2014, CT chest and abdomen 01/13/2015 CLINICAL HX: Lymphoma, restaging. Last chemotherapy treatment, December 2014. FINDINGS: HEAD AND NECK: No abnormal activity is visualized. CHEST: No enlarged or hypermetabolic lymph nodes are visualized in the thorax. Mild stable cardiomegaly. ABDOMEN AND PELVIS: Previously noted large central mesenteric mass with increased metabolic activity has significantly decreased in size in the interim. The residual mass is ill-defined and difficult to separate from adjacent bowel loops. Metabolic activity has decreased from 10.2 on the previous study to 3.1 on image 140 on the current scan. Interval resolution of retroperitoneal lymphadenopathy. No other enlarged or hypermetabolic lymph nodes are visualized in the abdomen or pelvis. SKELETON: No abnormal activity is visualized. IMPRESSION: Marked interval improvement with near complete resolution of large central mesenteric mass. Complete resolution of retroperitoneal lymphadenopathy. SL:[id number] 01/28/2015 - - Read by: Gage Roa MD Dictated Date/time: 01/30/15 10:43 Electronically Signed by: Gage Roa MD 01/30/15 10:54 FINAL REPORT [facility] ELECTROLYTES Chloride Lvl 109 meq/L 95 - 109 01/16/2015 [facility] ELECTROLYTES Potassium Lvl 3.9 meq/L 3.5 - 5.1 01/16/2015 [facility] ELECTROLYTES Sodium Lvl 144 meq/L 135 - 145 01/16/2015 [facility] ELECTROLYTES eGFR 89 mL/min/1.73m2 01/16/2015 Result Comment: The eGFR is calculated using the CKD-EPI formula. In most young, healthy individuals the eGFR will be >90 mL/min/1.73m2. The eGFR declines with age. An eGFR of 60-89 may be normal in some populations, particularly the elderly, for whom the CKD-EPI formula has not been extensively validated. Use of the eGFR is not recommended in the following populations: Individuals with unstable creatinine concentrations, including patients and those with serious co-morbid conditions. Patients with extremes in muscle mass or diet. The data above are obtained from the National Kidney Disease Education Program (NKDEP) which additionally recommends that when the eGFR is used in patients with extremes of body mass index for purposes of drug dosing, the eGFR should be multiplied by the estimated BMI. [facility] ELECTROLYTES Glucose Lvl 81 mg/dL 70 - 99 01/16/2015 [facility] ELECTROLYTES Calcium Lvl 8.2 mg/dL 8.5 - 10.5 01/16/2015 [facility] ELECTROLYTES CO2 29 meq/L 24 - 32 01/16/2015 [facility] ELECTROLYTES Creatinine Lvl 0.8 mg/dL 0.5 - 1.4 01/16/2015 [facility] ELECTROLYTES BUN 3 mg/dL 7 - 22 01/16/2015 [facility] ELECTROLYTES AGAP 9.9 meq/L 10.0 - 20.0 01/16/2015 [facility] HEMATOLOGY Eosinophils # 0.2 K/CMM 0.0 - 0.5 01/16/2015 [facility] HEMATOLOGY Basophils 0.9 % 0.0 - 1.0 01/16/2015 [facility] HEMATOLOGY Eosinophils 4.5 % 0.0 - 4.0 01/16/2015 [facility] HEMATOLOGY Monocytes 17.2 % 2.0 - 12.0 01/16/2015 [facility] Lymphocytes # 0.7 K/CMM 1.0 - 5.5 01/16/2015 [facility] Monocytes # 0.6 K/CMM 0.0 - 0.8 01/16/2015 [facility] HEMATOLOGY Segs 59.6 % 45.0 - 75.0 01/16/2015 [facility] Plt Morph Normal (01/16/15 5:10 AM) 01/16/2015 [facility] Lymphocytes 17.8 % 20.0 - 40.0 01/16/2015 [facility] Segs-Bands # 2.2 K/CMM 1.5 - 8.1 01/16/2015 [facility] RBC Morph Normal (01/16/15 5:10 AM) 01/16/2015 [facility] MCV 87.8 fL 80.0 - 94.0 01/16/2015 [facility] MCHC 32.8 g/dL 32.0 - 36.0 01/16/2015 [facility] MCH 28.8 pg 27.0 - 31.0 01/16/2015 [facility] RDW 16.4 % 11.5 - 14.5 01/16/2015 [facility] Platelet 149 K/CMM 133 - 450 01/16/2015 [facility] MPV 9.9 fL 7.4 - 10.4 01/16/2015 [facility] Hgb 10.0 g/dL 14.0 - 18.0 01/16/2015 [facility] HEMATOLOGY RBC 3.47 M/CMM 4.70 - 6.10 01/16/2015 [facility] HEMATOLOGY Hct 30.5 % 42.0 - 54.0 01/16/2015 [facility] HEMATOLOGY WBC 3.8 K/CMM 3.7 - 10.4 01/16/2015 [facility] LIPIDS VLDL 12 01/16/2015 [facility] LDL (Calculated) 32 mg/dL <=99 mg/dL 01/16/2015 [facility] LIPIDS Trig 60 mg/dL <=149 mg/dL 01/16/2015 [facility] LIPIDS Chol 103 mg/dL <=199 mg/dL 01/16/2015 [facility] LIPIDS CHD Risk 1.75 4.00 - 7.30 01/16/2015 [facility] HDL 59 mg/dL >=61 mg/dL 01/16/2015 [facility] Forearm w contrast CT Forearm w contrast CT Examination: CT scan of the left elbow and left forearm with contrast HISTORY: Pain and swelling COMPARISON: None available. DLP: 337.02 TECHNIQUE: Multiple axial CT images of the left elbow and left forearm were obtained following the administration of intravenous contrast. Multiplanar reformatted images were subsequently performed. FINDINGS: No acute bony fracture, joint dislocation, or suspicious osseous erosion is seen. There is severe osteoarthrosis of the radiocapitellar and ulnohumeral joints with joint space narrowing and prominent marginal osseous spurring. There is a 1.7 cm ossific body along the anterior recess of the elbow. Incidental note is made of severe osteoarthrosis of the thumb CMC joint. No significant elbow joint effusion is seen. There is moderate diffuse edema and stranding along the dorsal superficial soft tissues of the elbow extending along the ulnar soft tissues of the forearm. No definitive rim-enhancing fluid collection is seen. The vascular structures enhance normally with contrast. IMPRESSION: 1. No acute bony abnormality of the left elbow or left forearm and no evidence of osteomyelitis. 2. Diffuse stranding and edema along the dorsal soft tissues of the elbow extending along the ulnar soft tissues of the forearm, compatible with cellulitis. 3. No rim-enhancing fluid collection to suggest abscess. 4. Severe osteoarthrosis of the elbow. SL: 16 01/15/2015 - - Read by: Salomon Leslie MD Dictated Date/time: 01/16/15 07:59 Electronically Signed by: Salomon Leslie MD 01/16/15 08:06 FINAL REPORT [facility] Elbow w contrast CT Elbow w contrast CT Examination: CT scan of the left elbow and left forearm with contrast HISTORY: Pain and swelling COMPARISON: None available. DLP: 337.02 TECHNIQUE: Multiple axial CT images of the left elbow and left forearm were obtained following the administration of intravenous contrast. Multiplanar reformatted images were subsequently performed. FINDINGS: No acute bony fracture, joint dislocation, or suspicious osseous erosion is seen. There is severe osteoarthrosis of the radiocapitellar and ulnohumeral joints with joint space narrowing and prominent marginal osseous spurring. There is a 1.7 cm ossific body along the anterior recess of the elbow. Incidental note is made of severe osteoarthrosis of the thumb CMC joint. No significant elbow joint effusion is seen. There is moderate diffuse edema and stranding along the dorsal superficial soft tissues of the elbow extending along the ulnar soft tissues of the forearm. No definitive rim-enhancing fluid collection is seen. The vascular structures enhance normally with contrast. IMPRESSION: 1. No acute bony abnormality of the left elbow or left forearm and no evidence of osteomyelitis. 2. Diffuse stranding and edema along the dorsal soft tissues of the elbow extending along the ulnar soft tissues of the forearm, compatible with cellulitis. 3. No rim-enhancing fluid collection to suggest abscess. 4. Severe osteoarthrosis of the elbow. SL: 16 01/15/2015 - - Read by: Salomon Leslie MD Dictated Date/time: 01/16/15 07:59 Electronically Signed by: Salomon Leslie MD 01/16/15 08:06 FINAL REPORT [facility] ELECTROLYTES Chloride Lvl 109 meq/L 95 - 109 01/15/2015 [facility] ELECTROLYTES Potassium Lvl 3.5 meq/L 3.5 - 5.1 01/15/2015 [facility] ELECTROLYTES Sodium Lvl 143 meq/L 135 - 145 01/15/2015 [facility] ELECTROLYTES eGFR 89 mL/min/1.73m2 01/15/2015 Result Comment: The eGFR is calculated using the CKD-EPI formula. In most young, healthy individuals the eGFR will be >90 mL/min/1.73m2. The eGFR declines with age. An eGFR of 60-89 may be normal in some populations, particularly the elderly, for whom the CKD-EPI formula has not been extensively validated. Use of the eGFR is not recommended in the following populations: Individuals with unstable creatinine concentrations, including patients and those with serious co-morbid conditions. Patients with extremes in muscle mass or diet. The data above are obtained from the National Kidney Disease Education Program (NKDEP) which additionally recommends that when the eGFR is used in patients with extremes of body mass index for purposes of drug dosing, the eGFR should be multiplied by the estimated BMI. [facility] ELECTROLYTES AGAP 10.5 meq/L 10.0 - 20.0 01/15/2015 [facility] ELECTROLYTES Calcium Lvl 7.5 mg/dL 8.5 - 10.5 01/15/2015 [facility] ELECTROLYTES CO2 27 meq/L 24 - 32 01/15/2015 [facility] ELECTROLYTES Creatinine Lvl 0.8 mg/dL 0.5 - 1.4 01/15/2015 [facility] ELECTROLYTES BUN 6 mg/dL 7 - 22 01/15/2015 [facility] ELECTROLYTES Glucose Lvl 71 mg/dL 70 - 99 01/15/2015 [facility] Lymphocytes 14.4 % 20.0 - 40.0 01/15/2015 [facility] Monocytes 17.5 % 2.0 - 12.0 01/15/2015 [facility] HEMATOLOGY Segs 63.8 % 45.0 - 75.0 01/15/2015 [facility] Eosinophils # 0.2 K/CMM 0.0 - 0.5 01/15/2015 [facility] HEMATOLOGY Eosinophils 3.7 % 0.0 - 4.0 01/15/2015 [facility] Lymphocytes # 0.7 K/CMM 1.0 - 5.5 01/15/2015 [facility] Segs-Bands # 2.9 K/CMM 1.5 - 8.1 01/15/2015 [facility] Monocytes # 0.8 K/CMM 0.0 - 0.8 01/15/2015 [facility] HEMATOLOGY Basophils 0.6 % 0.0 - 1.0 01/15/2015 [facility] HEMATOLOGY MCV 88.1 fL 80.0 - 94.0 01/15/2015 [facility] RDW 15.7 % 11.5 - 14.5 01/15/2015 [facility] MCHC 33.0 g/dL 32.0 - 36.0 01/15/2015 [facility] Hct 28.0 % 42.0 - 54.0 01/15/2015 [facility] HEMATOLOGY MCH 29.1 pg 27.0 - 31.0 01/15/2015 [facility] HEMATOLOGY MPV 10.4 fL 7.4 - 10.4 01/15/2015 [facility] HEMATOLOGY Platelet 117 K/CMM 133 - 450 01/15/2015 [facility] HEMATOLOGY Hgb 9.3 g/dL 14.0 - 18.0 01/15/2015 [facility] HEMATOLOGY RBC 3.18 M/CMM 4.70 - 6.10 01/15/2015 [facility] HEMATOLOGY WBC 4.6 K/CMM 3.7 - 10.4 01/15/2015 [facility] CHEM PANEL eGFR 94 mL/min/1.73m2 01/14/2015 Result Comment: The eGFR is calculated using the CKD-EPI formula. In most young, healthy individuals the eGFR will be >90 mL/min/1.73m2. The eGFR declines with age. An eGFR of 60-89 may be normal in some populations, particularly the elderly, for whom the CKD-EPI formula has not been extensively validated. Use of the eGFR is not recommended in the following populations: Individuals with unstable creatinine concentrations, including patients and those with serious co-morbid conditions. Patients with extremes in muscle mass or diet. The data above are obtained from the National Kidney Disease Education Program (NKDEP) which additionally recommends that when the eGFR is used in patients with extremes of body mass index for purposes of drug dosing, the eGFR should be multiplied by the estimated BMI. [facility] CHEM PANEL Calcium Lvl 7.6 mg/dL 8.5 - 10.5 01/14/2015 [facility] CHEM PANEL Chloride Lvl 106 meq/L 95 - 109 01/14/2015 [facility] CHEM PANEL CO2 28 meq/L 24 - 32 01/14/2015 [facility] CHEM PANEL AGAP 11.4 meq/L 10.0 - 20.0 01/14/2015 [facility] CHEM PANEL Glucose Lvl 45 mg/dL 70 - 99 01/14/2015 Result Comment: Critical Result(s) called to harry rinaldi at 01/14/2015 07:24 by chasidy. Read back [place]. [facility] CHEM PANEL BUN 7 mg/dL 7 - 22 01/14/2015 [facility] CHEM PANEL Sodium Lvl 142 meq/L 135 - 145 01/14/2015 [facility] CHEM PANEL Potassium Lvl 3.4 meq/L 3.5 - 5.1 01/14/2015 [facility] CHEM PANEL Creatinine Lvl 0.7 mg/dL 0.5 - 1.4 01/14/2015 [facility] HEMATOLOGY MPV 9.7 fL 7.4 - 10.4 01/14/2015 [facility] HEMATOLOGY WBC 7.2 K/CMM 3.7 - 10.4 01/14/2015 [facility] HEMATOLOGY MCV 88.1 fL 80.0 - 94.0 01/14/2015 [facility] HEMATOLOGY Hct 29.8 % 42.0 - 54.0 01/14/2015 [facility] HEMATOLOGY Hgb 9.8 g/dL 14.0 - 18.0 01/14/2015 [facility] HEMATOLOGY RBC 3.38 M/CMM 4.70 - 6.10 01/14/2015 [facility] HEMATOLOGY MCHC 32.9 g/dL 32.0 - 36.0 01/14/2015 [facility] HEMATOLOGY RDW 15.8 % 11.5 - 14.5 01/14/2015 [facility] Platelet 121 K/CMM 133 - 450 01/14/2015 [facility] MCH 29.0 pg 27.0 - 31.0 01/14/2015 [facility] HEMATOLOGY Eosinophils 1.4 % 0.0 - 4.0 01/14/2015 [facility] HEMATOLOGY Monocytes 18.1 % 2.0 - 12.0 01/14/2015 [facility] HEMATOLOGY Segs 66.7 % 45.0 - 75.0 01/14/2015 [facility] Lymphocytes 13.5 % 20.0 - 40.0 01/14/2015 [facility] Eosinophils # 0.1 K/CMM 0.0 - 0.5 01/14/2015 [facility] HEMATOLOGY Monocytes # 1.3 K/CMM 0.0 - 0.8 01/14/2015 [facility] HEMATOLOGY Basophils 0.3 % 0.0 - 1.0 01/14/2015 [facility] HEMATOLOGY Segs-Bands # 4.8 K/CMM 1.5 - 8.1 01/14/2015 [facility] HEMATOLOGY Lymphocytes # 1.0 K/CMM 1.0 - 5.5 01/14/2015 [facility] CHEM PANEL LDH 437 unit/L 98 - 192 01/13/2015 [facility] CHEM PANEL O-0-Dpbokzbun 2.4 mg/L 1.0 - 2.3 01/13/2015 [facility] HEMATOLOGY PTT 38.7 s 22.9 - 35.8 01/13/2015 [facility] Chest/Abdomen w IV contrast CT Chest/Abdomen w IV contrast CT CT CHEST AND ABDOMEN WITH CONTRAST. INDICATION: Abdominal fullness, cellulitis. COMPARISON: CT abdomen pelvis 07/09/2014 and PET/CT 01/29/2014. Axial images with sagittal and coronal reconstructions were obtained following oral and nonionic intravenous contrast, Omnipaque 100 cc. STREAK ARTIFACTS ARE PRODUCED BY INCLUSION OF THE UPPER EXTREMITIES IN THE SCAN PLANE. CT CHEST: There is minimal interstitial scarring. No mass or airspace consolidation is identified. No hilar, mediastinal or axillary adenopathy is identified. There is mild cardiomegaly. No pleural or pericardial effusion is seen. IMPRESSION: No significant at amount. CT ABDOMEN: There is mild fatty infiltration of the liver. The gallbladder and common duct are not remarkable. The spleen appears normal. The kidneys, adrenals and pancreas are not remarkable. The central mesenteric mass consistent with lymphoma appears unchanged. It encases numerous vessels. No intestinal lesion or ascites is seen. IMPRESSION: 1. No acute abnormality. 2. Stable central mesenteric mass. 3. Fatty liver. SL: 01/13/2015 - - Read by: Luisito Earl MD Dictated Date/time: 01/13/15 17:27 Electronically Signed by: Luisito Earl MD 01/13/15 17:32 FINAL REPORT [facility] Ext Upper Venous Doppler Unilat US Ext Upper Venous Doppler Unilat US PROCEDURE: UNILATERAL UPPER EXTREMITY VENOUS ULTRASOUND INDICATION: Pain, Limb. COMPARISON: None. TECHNIQUE: Sonographic evaluation of the left upper extremity veins was performed using high resolution B-mode, pulse and color Doppler imaging. Static images are submitted. FINDINGS:The internal jugular, subclavian, axillary and brachial veins are patent. The basilic and cephalic veins are patent. Normal venous waveforms. IMPRESSION: There is no sonographic evidence for thrombosis in the examined veins of the left upper extremity. SL: 13 01/13/2015 - - Read by: Johnson Edwards MD Dictated Date/time: 01/14/15 09:26 Electronically Signed by: Johnson Edwards MD 01/14/15 09:31 FINAL REPORT [facility] CHEM PANEL Globulin 3.3 g/dL 2.0 - 4.0 01/12/2015 [facility] CHEM PANEL B/C Ratio 12 6 - 25 01/12/2015 [facility] CHEM PANEL A/G Ratio 1.0 0.7 - 1.6 01/12/2015 [facility] CHEM PANEL Bili Total 0.4 mg/dL 0.2 - 1.3 01/12/2015 [facility] CHEM PANEL Alk Phos 79 unit/L 39 - 136 01/12/2015 [facility] CHEM PANEL Albumin Lvl 3.4 g/dL 3.5 - 5.0 01/12/2015 [facility] CHEM PANEL ALT 35 unit/L 0 - 65 01/12/2015 [facility] CHEM PANEL AST 29 unit/L 0 - 37 01/12/2015 [facility] CHEM PANEL Total Protein 6.7 g/dL 6.4 - 8.4 01/12/2015 [facility] CHEM PANEL Lactic Acid Lvl 1.4 mMol/L 0.5 - 2.2 01/12/2015 [facility] RBC Morph Normal (01/12/15 5:05 PM) 01/12/2015 [facility] HEMATOLOGY Dohle Bodies Moderate *ABN* (01/12/15 5:05 PM) None Seen 01/12/2015 [facility] HEMATOLOGY Tot Cell Ct 100 01/12/2015 [facility] Plt Morph Normal (01/12/15 5:05 PM) 01/12/2015 [facility] Promyelocytes 1.0 % <=0.0 % 01/12/2015 [facility] Atypical Lymphs 1.0 % <=0.0 % 01/12/2015 [facility] Myelocytes 5.0 % <=0.0 % 01/12/2015 [facility] Metamyelocytes 3.0 % 0.0 - 1.0 01/12/2015 [facility] HEMATOLOGY Bands 6.0 % 0.0 - 11.0 01/12/2015 [facility] Chest 2 views DX Chest 2 views DX CHEST RADIOGRAPH 2 VIEWS INDICATION: Chronic cough, type II diabetes mellitus COMPARISON: Chest radiograph 12/01/2013 FINDINGS: There has been interval placement of a right IJ chest port, in satisfactory position. There is no consolidation, pleural effusion, or pneumothorax. No suspicious pulmonary nodules are identified. The cardiomediastinal silhouette and pulmonary vasculature are within normal limits. No acute bony abnormalities are seen. IMPRESSION: No acute intrathoracic abnormalities are visualized. SL: 16 12/26/2014 - - Read by: Leonid Hodge MD Dictated Date/time: 12/26/14 11:52 Electronically Signed by: Leonid Hodge MD 12/26/14 11:53 FINAL REPORT [facility] Elbow 3 views Elbow 3 views LEFT ELBOW 3 VIEWS: Degenerative changes are noted without fracture or dislocation. Soft tissues are unremarkable. SL:07/10/2014 - - Read by: Andry Shetty MD Dictated Date/time: 07/10/14 19:10 Electronically Signed by: Andry Shetty MD 07/10/14 19:10 FINAL REPORT [facility] Brain wo contrast CT Brain wo contrast CT CT BRAIN WITHOUT CONTRAST: TECHNIQUE: Axial images were done without contrast. FINDINGS: There is no significant parenchymal abnormality, hemorrhage, infarct, mass, or shift. The ventricles and extra-axial spaces are within normal limits. There is no significant osseous abnormality. IMPRESSION: No acute CT abnormality of the brain. SL:07/10/2014 - - Read by: Andry Shetty MD Dictated Date/time: 07/10/14 18:58 Electronically Signed by: Andry Shetty MD 07/10/14 18:59 FINAL REPORT [facility] Abdomen/Pelvis w IV contrast CT Abdomen/Pelvis w IV contrast CT EXAM: CT ABDOMEN AND PELVIS WITH IV CONTRAST DATE: Jul 09, 2014 09:52:59 AM CLINICAL INDICATIONS: lymphoma TECHNIQUE: Multiple helical of abdomen and pelvis from the level of the domes of the diaphragm through the symphysis pubis after the administration of intravenous and oral contrast. Axial, sagittal and coronal reformats are provided. Delayed images through the abdomen were acquired. COMPARISON: CT chest pelvis 12/01/2013. PET/CT 01/29/2014.. FINDINGS: Bilateral lung bases are clear without pleural effusions. The liver, spleen, gallbladder, bilateral adrenal glands, pancreas, and bilateral kidneys are within normal limits. There has been interval decrease in size of a hypodense, irregular mass in the root of the mesentery, which encases the superior mesenteric artery and vein branches. It is difficult to measure the exact dimensions of this mass, however, a significant portion of tumor burden remains. The portal, splenic, is the superior mesenteric vein are patent. The superior mesenteric artery and its major branches are also patent. There has been interval decrease in retroaortic enlarged lymph nodes, which previously measuring approximately 2.3 x 1.8 cm, now measuring 1.7 x 0.6 cm. Previously seen 1 cm nodule in the upper pelvis mesentery is no longer identified. Multiple subcentimeter mesenteric nodes are again seen. No new enlarged lymph nodes or masses are seen. A small diverticulum is again seen in the second portion of the duodenum in the pancreaticoduodenal groove without inflammation. The small bowel is normal in caliber. The large bowel is nondistended. No intraperitoneal free air or fluid is identified. The appendix is normal. The prostate is mildly prominent. The urinary bladder is grossly within normal limits. No osseous destructive lesions are seen. IMPRESSION: 1. Interval decrease in size of irregular mass at the mesenteric root and lymph nodes, indicative of positive response to treatment. 2. No new lymphadenopathy or metastatic disease seen. SL: 12 07/09/2014 - - Read by: Gabo Mahmood MD Dictated Date/time: 07/11/14 08:38 Electronically Signed by: Gabo Mahmood MD 07/11/14 08:50 FINAL REPORT [facility] PET CT Lymphoma initial staging PET CT Lymphoma initial staging PET/CT SCAN: TECHNIQUE: 14.9 mCi of FDG were administered intravenously and a series of overlapping emission images were obtained from the skull base to the proximal thighs utilizing a PET/CT hybrid device. The CT was utilized for attenuation correction and anatomic correlation and not as an independent diagnostic study. BLOOD GLUCOSE: 82 COMPARISON: CT chest abdomen pelvis 12/01/2013 CLINICAL HX: Follicular lymphoma, initial staging FINDINGS: HEAD AND NECK: No abnormal activity is visualized. CHEST: No significant mediastinal or hilar lymphadenopathy is visualized. No abnormal activity is noted in the thorax. ABDOMEN AND PELVIS: Large heterogeneous central mesenteric mass is visualized. There are numerous satellite nodules more peripherally in the mesentery with additional lymphadenopathy noted in the retroperitoneum. Maximum SUV is noted at the root of the SMA at 10.2 on image 138. No discrete hypermetabolic mass is visualized in the liver or spleen. Physiologic activity is visualized in the solid organs, tract and GI tract. SKELETON: No abnormal activity is visualized. IMPRESSION: Large, hypermetabolic, heterogeneous, central mesenteric mass with numerous satellite nodules more peripherally in the mesentery with additional lymphadenopathy in the retroperitoneum. Findings are consistent with the clinical diagnosis of lymphoma. SL:13 01/29/2014 - - Read by: Gage Roa MD Dictated Date/time: 01/31/14 07:53 Electronically Signed by: Gage Roa MD 01/31/14 08:18 FINAL REPORT [facility] CHEM PANEL A/G Ratio 1.3 0.7 - 1.6 12/28/2013 [facility] CHEM PANEL AGAP 12.0 meq/L 10.0 - 20.0 12/28/2013 [facility] CHEM PANEL B/C Ratio 12 6 - 25 12/28/2013 [facility] CHEM PANEL Globulin 3.0 g/dL 2.0 - 4.0 12/28/2013 [facility] CHEM PANEL eGFR 86 mL/min/1.73m2 12/28/2013 1Result Comment: The eGFR is calculated using the CKD-EPI formula. In most young, healthy individuals the eGFR will be >90 mL/min/1.73m2. The eGFR declines with age. An eGFR of 60-89 may be normal in some populations, particularly the elderly, for whom the CKD-EPI formula has not been extensively validated. Use of the eGFR is not recommended in the following populations: Individuals with unstable creatinine concentrations, including patients and those with serious co-morbid conditions. Patients with extremes in muscle mass or diet. The data above are obtained from the National Kidney Disease Education Program (NKDEP) which additionally recommends that when the eGFR is used in patients with extremes of body mass index for purposes of drug dosing, the eGFR should be multiplied by the estimated BMI. [facility] CHEM PANEL Glucose Lvl 62 mg/dL 70 - 99 12/28/2013 2Interpretive Data: Adult reference range values reflect the clinical guidelines of the [place] [employer]. [facility] CHEM PANEL BUN 11 mg/dL 7 - 22 12/28/2013 [facility] CHEM PANEL Total Protein 7.0 g/dL 6.4 - 8.4 12/28/2013 [facility] CHEM PANEL AST 26 unit/L 0 - 37 12/28/2013 [facility] CHEM PANEL Albumin Lvl 4.0 g/dL 3.5 - 5.0 12/28/2013 [facility] CHEM PANEL Alk Phos 103 unit/L 39 - 136 12/28/2013 [facility] CHEM PANEL Bili Total 0.3 mg/dL 0.2 - 1.3 12/28/2013 [facility] CHEM PANEL ALT 31 unit/L 0 - 65 12/28/2013 [facility] CHEM PANEL Creatinine Lvl 0.9 mg/dL 0.5 - 1.4 12/28/2013 [facility] CHEM PANEL Sodium Lvl 140 meq/L 135 - 145 12/28/2013 [facility] CHEM PANEL Chloride Lvl 105 meq/L 95 - 109 12/28/2013 [facility] CHEM PANEL CO2 27 meq/L 24 - 32 12/28/2013 [facility] CHEM PANEL Calcium Lvl 8.8 mg/dL 8.5 - 10.5 12/28/2013 [facility] CHEM PANEL Potassium Lvl 4.0 meq/L 3.5 - 5.1 12/28/2013 [facility] WBC 5.3 K/CMM 3.7 - 10.4 12/28/2013 [facility] Hct 37.3 % 42.0 - 54.0 12/28/2013 [facility] Hgb 12.7 g/dL 14.0 - 18.0 12/28/2013 [facility] RBC 4.21 M/CMM 4.70 - 6.10 12/28/2013 [facility] MCHC 34.0 g/dL 32.0 - 36.0 12/28/2013 [facility] MCH 30.1 pg 27.0 - 31.0 12/28/2013 [facility] Platelet 130 K/CMM 133 - 450 12/28/2013 [facility] MCV 88.7 fL 80.0 - 94.0 12/28/2013 [facility] RDW 12.9 % 11.5 - 14.5 12/28/2013 [facility] MPV 12.2 fL 7.4 - 10.4 12/28/2013 [facility] Eosinophils 6.3 % 0.0 - 4.0 12/28/2013 [facility] Basophils 1.0 % 0.0 - 1.0 12/28/2013 [facility] Monocytes 7.9 % 2.0 - 12.0 12/28/2013 [facility] Lymphocytes 31.9 % 20.0 - 40.0 12/28/2013 [facility] Plt Morph Normal (12/28/13 3:30 PM) 12/28/2013 [facility] Segs 52.9 % 45.0 - 75.0 12/28/2013 [facility] RBC Morph Normal (12/28/13 3:30 PM) 12/28/2013 [facility] Basophils # 0.1 K/CMM 0.0 - 0.2 12/28/2013 [facility] Large Plt Slight *ABN* (12/28/13 3:30 PM) None Seen 12/28/2013 [facility] HEMATOLOGY Eosinophils # 0.3 K/CMM 0.0 - 0.5 12/28/2013 [facility] HEMATOLOGY Segs-Bands # 2.8 K/CMM 1.5 - 8.1 12/28/2013 [facility] HEMATOLOGY Lymphocytes # 1.7 K/CMM 1.0 - 5.5 12/28/2013 [facility] HEMATOLOGY Monocytes # 0.4 K/CMM 0.0 - 0.8 12/28/2013 [facility] CHEMISTRY eGFR null 01/03/2012 NA 1Result Comment: Expected eGFR for >20 yr. age group: >=60 ml/min/1.73 sq m The eGFR calculation is not valid in or for persons < 18 years of age. From National Kidney Disease Education Program (NKDEP) [facility] CHEMISTRY BUN 12 mg/dL 7 - 22 01/03/2012 Normal [facility] CHEMISTRY Potassium Lvl 3.9 meq/L 3.5 - 5.1 01/03/2012 Normal [facility] CHEMISTRY Creatinine Lvl 1.0 mg/dL 0.5 - 1.4 01/03/2012 Normal [facility] CHEMISTRY Glucose Lvl 85 mg/dL 70 - 99 01/03/2012 Normal 2Interpretive Data: Adult reference range values reflect the clinical guidelines of the [place] [employer]. [facility] CHEMISTRY AGAP 8.9 meq/L 10.0 - 20.0 01/03/2012 LOW [facility] CHEMISTRY Sodium Lvl 141 meq/L 135 - 145 01/03/2012 Normal [facility] CHEMISTRY Chloride Lvl 107 meq/L 95 - 109 01/03/2012 Normal [facility] CHEMISTRY CO2 29 meq/L 24 - 32 01/03/2012 Normal [facility] CHEMISTRY Calcium Lvl 8.9 mg/dL 8.5 - 10.5 01/03/2012 Normal [facility] HEMATOLOGY MPV 12.5 fL 7.4 - 10.4 01/03/2012 HI [facility] HEMATOLOGY RDW 13.3 % 11.5 - 14.5 01/03/2012 Normal [facility] HEMATOLOGY Platelet 150 K/CMM 133 - 450 01/03/2012 Normal [facility] HEMATOLOGY MCHC 32.9 g/dL 32.0 - 36.0 01/03/2012 Normal [facility] HEMATOLOGY MCH 30.1 pg 27.0 - 31.0 01/03/2012 Normal [facility] HEMATOLOGY MCV 91.4 fL 80.0 - 94.0 01/03/2012 Normal [facility] HEMATOLOGY Hct 39.9 % 42.0 - 54.0 01/03/2012 LOW [facility] HEMATOLOGY WBC 5.9 K/CMM 3.7 - 10.4 01/03/2012 Normal [facility] HEMATOLOGY Hgb 13.1 g/dL 14.0 - 18.0 01/03/2012 LOW [facility] HEMATOLOGY RBC 4.36 M/CMM 4.70 - 6.10 01/03/2012 LOW [facility] HEMATOLOGY Lymphocytes 29.6 % 20.0 - 40.0 01/03/2012 Normal [facility] HEMATOLOGY Monocytes 8.0 % 2.0 - 12.0 01/03/2012 Normal [facility] HEMATOLOGY Giant Plt Slight *ABN* (01/03/2012 09:05:00) None Seen 01/03/2012 ABN [facility] HEMATOLOGY Large Plt Slight *ABN* (01/03/2012 09:05:00) None Seen 01/03/2012 ABN [facility] HEMATOLOGY Eosinophils 4.5 % 0.0 - 4.0 01/03/2012 HI [facility] HEMATOLOGY Basophils 0.2 % 0.0 - 1.0 01/03/2012 Normal [facility] HEMATOLOGY Segs-Bands # 3.4 K/CMM 1.5 - 8.1 01/03/2012 Normal [facility] Lymphocytes # 1.8 K/CMM 1.0 - 5.5 01/03/2012 Normal [facility] Basophils # 0.0 K/CMM 0.0 - 0.2 01/03/2012 Normal [facility] Segs 57.7 % 45.0 - 75.0 01/03/2012 Normal [facility] HEMATOLOGY RBC Morph Normal (01/03/2012 09:05:00) 01/03/2012 Normal [facility] Monocytes # 0.5 K/CMM 0.0 - 0.8 01/03/2012 Normal [facility] HEMATOLOGY Eosinophils # 0.3 K/CMM 0.0 - 0.5 01/03/2012 Normal [facility] HEMATOLOGY Plt Morph See Note (01/03/2012 09:05:00) 01/03/2012 Normal [facility] BEDSIDE GLUCOSE TESTING Gluc POC Lifscn 57 mg/dL 70 - 99 12/24/2011 LOW 1Interpretive Data: Upper Reportable Limit: 200 mg/dL. [facility] BEDSIDE GLUCOSE TESTING Comment1 Notify RN/MD 12/24/2011 NA [facility] BEDSIDE GLUCOSE TESTING Comment1 Notify JIMMY/ 12/24/2011 NA [facility] BEDSIDE GLUCOSE TESTING Gluc POC Lifscn 133 mg/dL 70 - 99 12/24/2011 HI 2Interpretive Data: Upper Reportable Limit: 200 mg/dL. [facility] BEDSIDE GLUCOSE TESTING Comment1 Notify DIANA 12/24/2011 NA [facility] BEDSIDE GLUCOSE TESTING Gluc POC Lifscn 101 mg/dL 70 - 99 12/24/2011 HI 3Interpretive Data: Upper Reportable Limit: 200 mg/dL. [facility] CHEMISTRY CK MB 0.7 ng/mL 0.5 - 3.6 12/24/2011 Normal [facility] CHEMISTRY CK MB Index 0.5 0.0 - 2.5 12/24/2011 Normal [facility] CHEMISTRY CHD Risk 2.41 4.00 - 7.30 12/24/2011 LOW [facility] CHEMISTRY HDL 66 mg/dL >=35 12/24/2011 Normal [facility] CHEMISTRY Chol 159 mg/dL 120 - 200 12/24/2011 Normal [facility] CHEMISTRY Trig 88 mg/dL 0 - 200 12/24/2011 Normal [facility] CHEMISTRY LDL 75 mg/dL 0 - 129 12/24/2011 Normal [facility] CHEMISTRY Troponin-I 0.02 ng/mL 0.00 - 0.40 12/24/2011 Normal [facility] CHEMISTRY Total CK 139 U/L 12 - 12/24/2011 Normal [facility] CHEMISTRY CK MB 0.8 ng/mL 0.5 - 3.6 12/24/2011 Normal [facility] CHEMISTRY CK MB Index 0.5 0.0 - 2.5 12/24/2011 Normal [facility] CHEMISTRY Troponin-I 0.02 ng/mL 0.00 - 0.40 12/24/2011 Normal [facility] CHEMISTRY Total CK 162 U/L 12 - 191 12/24/2011 Normal [facility] CHEMISTRY CK MB Index 0.7 0.0 - 2.5 12/23/2011 Normal [facility] CHEMISTRY Troponin-I 0.03 ng/mL 0.00 - 0.40 12/23/2011 Normal [facility] CHEMISTRY CK MB 1.2 ng/mL 0.5 - 3.6 12/23/2011 Normal [facility] CHEMISTRY Total CK 179 U/L 12 - 191 12/23/2011 Normal [facility] CHEMISTRY BUN 16 mg/dL 7 - 22 12/23/2011 Normal [facility] CHEMISTRY Potassium Lvl 4.2 meq/L 3.5 - 5.1 12/23/2011 Normal [facility] CHEMISTRY Calcium Lvl 8.7 mg/dL 8.5 - 10.5 12/23/2011 Normal [facility] CHEMISTRY AGAP 10.2 meq/L 10.0 - 20.0 12/23/2011 Normal [facility] CHEMISTRY Creatinine Lvl 1.0 mg/dL 0.5 - 1.4 12/23/2011 Normal [facility] CHEMISTRY Chloride Lvl 105 meq/L 95 - 109 12/23/2011 Normal [facility] CHEMISTRY CO2 28 meq/L 24 - 32 12/23/2011 Normal [facility] CHEMISTRY Glucose Lvl 82 mg/dL 70 - 99 12/23/2011 Normal 4Interpretive Data: Adult reference range values reflect the clinical guidelines of the [place] [employer]. [facility] CHEMISTRY Sodium Lvl 139 meq/L 135 - 145 12/23/2011 Normal [facility] CHEMISTRY Lipase Lvl 230 U/L 73 - 393 12/23/2011 Normal [facility] CHEMISTRY BNP 9 pg/mL <=100 12/23/2011 Normal 5Interpretive Data: Elevated results are in line with increasing severity of congestive heart failure. Minor elevations between 100 and 300 may be seen with Myocardial Ischemia, Sodium retaining drugs, and compensated/treated heart failure. [facility] HEMATOLOGY Monocytes 6.2 % 2.0 - 12.0 12/23/2011 Normal [facility] HEMATOLOGY Eosinophils 3.1 % 0.0 - 4.0 12/23/2011 Normal [facility] HEMATOLOGY Segs-Bands # 3.3 K/CMM 1.5 - 8.1 12/23/2011 Normal [facility] HEMATOLOGY Basophils 0.7 % 0.0 - 1.0 12/23/2011 Normal [facility] HEMATOLOGY Lymphocytes # 1.9 K/CMM 1.0 - 5.5 12/23/2011 Normal [facility] HEMATOLOGY Basophils # 0.0 K/CMM 0.0 - 0.2 12/23/2011 Normal [facility] HEMATOLOGY Monocytes # 0.4 K/CMM 0.0 - 0.8 12/23/2011 Normal [facility] HEMATOLOGY Eosinophils # 0.2 K/CMM 0.0 - 0.5 12/23/2011 Normal [facility] HEMATOLOGY Lymphocytes 32.5 % 20.0 - 40.0 12/23/2011 Normal [facility] HEMATOLOGY Segs 57.5 % 45.0 - 75.0 12/23/2011 Normal [facility] HEMATOLOGY MCH 30.7 pg 27.0 - 31.0 12/23/2011 Normal [facility] HEMATOLOGY Hct 37.9 % 42.0 - 54.0 12/23/2011 LOW [facility] HEMATOLOGY MCV 91.0 fL 80.0 - 94.0 12/23/2011 Normal [facility] HEMATOLOGY Hgb 12.8 g/dL 14.0 - 18.0 12/23/2011 LOW [facility] HEMATOLOGY WBC 5.8 K/CMM 3.7 - 10.4 12/23/2011 Normal [facility] HEMATOLOGY RBC 4.17 M/CMM 4.70 - 6.10 12/23/2011 LOW [facility] MCHC 33.7 g/dL 32.0 - 36.0 12/23/2011 Normal [facility] RDW 12.8 % 11.5 - 14.5 12/23/2011 Normal [facility] HEMATOLOGY Platelet 135 K/CMM 133 - 450 12/23/2011 Normal [facility] MPV 11.4 fL 7.4 - 10.4 12/23/2011 HI [facility] HEMATOLOGY INR 0.97 0.85 - 1.17 12/23/2011 Normal 6Interpretive Data: RECOMMENDED RANGES FOR PROTIME INR: 2.0-3.0 for most medical and surgical thromboembolic states. 2.5-3.5 for artificial heart valves and recurrent embolism. INR SHOULD BE USED ONLY FOR PATIENTS ON STABLE ANTICOAGULANT THERAPY. [facility] PTT 28.7 s 22.9 - 35.8 12/23/2011 Normal 7Interpretive Data: Heparin Therapeutic Range: 57 - 92 Seconds [facility] PT 12.9 s 12.0 - 14.7 12/23/2011 Normal [facility] Vital Signs Vital Sign Value Date Comments Source Systolic (mm Hg) 128 09/22/2017 [facility] Diastolic (mm Hg) 52 09/22/2017 [facility] Respitory Rate 13 09/22/2017 [facility] Systolic (mm Hg) 129 09/22/2017 [facility] Diastolic (mm Hg) 65 09/22/2017 [facility] Systolic (mm Hg) 116 09/22/2017 [facility] Diastolic (mm Hg) 60 09/22/2017 [facility] Respitory Rate 14 09/22/2017 [facility] Respitory Rate 14 09/22/2017 [facility] Heart Rate 63 09/22/2017 [facility] Temperature Oral (F) 97.7 F 09/18/2017 [facility] Heart Rate 53 09/18/2017 [facility] Weight 87.955 09/18/2017 [facility] BMI Calculated 32.27 09/18/2017 [facility] Height 165.1 cm 09/18/2017 [facility] Weight 87.869 09/16/2017 [facility] BMI Calculated 33.25 09/16/2017 [facility] Height 162.56 cm 09/16/2017 [facility] Temperature Oral (F) 97.7 F 09/16/2017 [facility] Systolic (mm Hg) 132 09/16/2017 [facility] Diastolic (mm Hg) 68 09/16/2017 [facility] Heart Rate 57 09/16/2017 [facility] Temperature Oral (F) 98.2 F 01/16/2015 [facility] Heart Rate 74 01/16/2015 [facility] Systolic (mm Hg) 130 01/16/2015 [facility] Diastolic (mm Hg) 61 01/16/2015 [facility] Respitory Rate 18 01/16/2015 [facility] Heart Rate 71 01/16/2015 [facility] Temperature Oral (F) 98.5 F 01/16/2015 [facility] Respitory Rate 18 01/16/2015 [facility] Systolic (mm Hg) 122 01/16/2015 [facility] Diastolic (mm Hg) 73 01/16/2015 [facility] Respitory Rate 18 01/16/2015 [facility] Systolic (mm Hg) 112 01/16/2015 [facility] Diastolic (mm Hg) 65 01/16/2015 [facility] Temperature Oral (F) 98.3 F 01/16/2015 [facility] Heart Rate 72 01/16/2015 [facility] BMI Calculated 29.52 01/13/2015 [facility] Weight 80.455 01/13/2015 [facility] Height 165.1 cm 01/13/2015 [facility] BMI Calculated 29.18 01/13/2015 [facility] Weight 79.545 01/13/2015 [facility] Height 165.1 cm 01/13/2015 [facility] Weight 79.545 01/12/2015 [facility] Heart Rate 64 07/11/2014 [facility] Respitory Rate 16 07/11/2014 [facility] Systolic (mm Hg) 128 07/11/2014 [facility] Diastolic (mm Hg) 73 07/11/2014 [facility] Temperature Oral (F) 98.8 F 07/11/2014 [facility] Diastolic (mm Hg) 73 07/10/2014 [facility] Systolic (mm Hg) 133 07/10/2014 [facility] Temperature Oral (F) 98.9 F 07/10/2014 [facility] Respitory Rate 18 07/10/2014 [facility] Heart Rate 64 07/10/2014 [facility] Weight 81.818 07/10/2014 [facility] BMI Calculated 30.96 07/10/2014 [facility] Height 162.56 cm 07/10/2014 [facility] Weight 176 01/04/2014 [facility] Temperature Oral (F) 98.2 F 01/04/2014 [facility] Heart Rate 60 01/04/2014 [facility] Systolic (mm Hg) 151 01/04/2014 [facility] Diastolic (mm Hg) 79 01/04/2014 [facility] Systolic (mm Hg) 120 12/31/2013 [facility] Diastolic (mm Hg) 50 12/31/2013 [facility] Diastolic (mm Hg) 56 12/31/2013 [facility] Systolic (mm Hg) 122 12/31/2013 [facility] Diastolic (mm Hg) 53 12/31/2013 [facility] Systolic (mm Hg) 116 12/31/2013 [facility] Respitory Rate 14 12/31/2013 [facility] Respitory Rate 13 12/31/2013 [facility] Respitory Rate 16 12/31/2013 [facility] Temperature Oral (F) 98.0 F 12/28/2013 [facility] Heart Rate 58 12/28/2013 [facility] Height 160.02 cm 12/28/2013 [facility] BMI Calculated 31.95 12/28/2013 [facility] Weight 81.818 12/28/2013 [facility] Height 63 12/17/2013 [facility] Weight 180 12/17/2013 [facility] Temperature Oral (F) 97.7 F 12/17/2013 [facility] Heart Rate 62 12/17/2013 [facility] Systolic (mm Hg) 138 12/17/2013 [facility] Diastolic (mm Hg) 74 12/17/2013 [facility] Weight 89.091 01/03/2012 [facility] Height 162.56 cm 01/03/2012 [facility] Systolic (mm Hg) 123 12/24/2011 [facility] Respitory Rate 16 12/24/2011 [facility] Heart Rate 58 12/24/2011 [facility] Temperature Oral (F) 98.1 F 12/24/2011 [facility] Diastolic (mm Hg) 69 12/24/2011 [facility] Diastolic (mm Hg) 71 12/24/2011 [facility] Systolic (mm Hg) 129 12/24/2011 [facility] Heart Rate 55 12/24/2011 [facility] Respitory Rate 16 12/24/2011 [facility] Temperature Oral (F) 97.9 F 12/24/2011 [facility] Respitory Rate 20 12/24/2011 [facility] Diastolic (mm Hg) 65 12/24/2011 [facility] Systolic (mm Hg) 127 12/24/2011 [facility] Heart Rate 52 12/24/2011 [facility] Temperature Oral (F) 97.7 F 12/24/2011 [facility] Weight 86.364 12/23/2011 [facility] Height 165.10 cm 12/23/2011 [facility] Weight 86.364 12/23/2011 [facility] Height 165.10 cm 12/23/2011 [facility] Encounters Location Location Details Encounter Type Encounter Number Reason For Visit Attending Provider ADM Date DC Date Status Source [facility] OU [id number] [facility] 12/23/2011 12/24/2011 Active [facility] [id number] [facility] 01/03/2012 01/03/2012 Active [facility] General Surgery 350 Office Visit [id number] Ben Cai MD 12/17/2013 12/17/2013 [facility] Lab Report [id number] Ben Cai MD 12/21/2013 12/21/2013 [facility] OBS Day Surgery [id number] Ben Cai 12/31/2013 12/31/2013 [facility] General Surgery 350 Office Visit [id number] Ben Cai MD 01/04/2014 01/04/2014 [facility] Outpatient [id number] [facility] 01/29/2014 01/30/2014 [facility] Outpatient [id number] [facility] 07/09/2014 07/10/2014 [facility] Emergency [facility] [id number] Evans Lingeal 07/10/2014 07/11/2014 [facility] Pre Admit [id number] [facility] 09/08/2014 09/08/2014 [facility] [id number] Luisito Leslie 12/26/2014 12/27/2014 [facility] [id number] Silvio Fletcherm 01/12/2015 01/16/2015 [id number] [facility]2015 [facility] Out[facility] [id number] [facility] 02/28/2015 03/01/2015 [facility] [id number] [facility] 02[facility]03/2016 02/04/2016 [facility] Outpatient [id number] [facility] 09/10/2017 09/11/2017 [facility] Outpatient [id number] PICKARD ARY 09/16/2017 [facility] [id number] Rina EricperlaAaron 09/16/2017 09/17/2017 [facility] Outpatient [id number] PICKARD LE 09/22/2017 [facility] Day Surgery [id number] Pickard Ary 09/22/2017 09/22/2017 [facility] Outpatient [id number] [facility] 09/22/2017 09/23/2017 [facility] Outpatient [id number] DARA FINA 02/24/2018 [facility] Outpatient [id number] SHANTI CANDACE 05/26/2018 [facility] Procedures Procedure Code Date Perfomer Comments Source Pancreatic biopsy [id number] 12/03/2013 [facility] Pancreatic biopsy [id number] 12/03/2013 [facility] Pancreatic biopsy [id number] 12/03/2013 NATHANIEL [place] Femoral angiogram [id number] 06/23/2009 [facility] Femoral angiogram [id number] 06/23/2009 [facility] Femoral angiogram [id number] 06/23/2009 NATHANIEL Reynoso Bone marrow aspiration [id number] 06/23/2006 [facility] Bone marrow aspiration [id number] 06/23/2006 [facility] Bone marrow aspiration [id number] 06/23/2006 NATHANIEL Reynoso
--- OUTSIDE RECORDS SUMMARY | 2018-04-23 06:46 | XMS REPORT | CCD ---
Author Author Auto Generated Organization 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 Name Role Phone Orlin Braun RP Allergies, Adverse Reactions, Alerts Substance Reaction Status NKDA Active Problem List Condition Effective Dates Status Diabetes mellitus Active Hyperlipidemia Active Hypertension Active Vital Signs Most recent to oldest [Reference Range]: 1 Height 162.56 cm (01/03/2012 08:57:00) Weight 89.091 kg (01/03/2012 08:57:00) Results CHEMISTRY Most recent to oldest [Reference Range]: 1 Sodium Lvl [135-145 mEq/L] 141 mEq/L (01/03/2012 09:05:00) Potassium Lvl [3.5-5.1 mEq/L] 3.9 mEq/L (01/03/2012 09:05:00) Chloride Lvl [95-109 mEq/L] 107 mEq/L (01/03/2012 09:05:00) CO2 [24-32 mEq/L] 29 mEq/L (01/03/2012 09:05:00) AGAP [10.0-20.0 mEq/L] 8.9 mEq/L *LOW* (01/03/2012 09:05:00) Creatinine Lvl [0.5-1.4 mg/dL] 1.0 mg/dL (01/03/2012 09:05:00) eGFR >60 1 *NA* (01/03/2012 09:05:00) BUN [7-22 mg/dL] 12 mg/dL (01/03/2012 09:05:00) Glucose Lvl [70-99 mg/dL] 85 mg/dL 2 (01/03/2012 09:05:00) Calcium Lvl [8.5-10.5 mg/dL] 8.9 mg/dL (01/03/2012 09:05:00) 1Result Comment: Expected eGFR for >20 yr. age group: >=60 ml/min/1.73 sq m The eGFR calculation is not valid in or for persons < 18 years of age. From National Kidney Disease Education Program (NKDEP) 2Interpretive Data: Adult reference range values reflect the clinical guidelines of the [place] [employer]. HEMATOLOGY Most recent to oldest [Reference Range]: 1 WBC [3.7-10.4 K/CMM] 5.9 K/CMM (01/03/2012 09:05:00) RBC [4.70-6.10 M/CMM] 4.36 M/CMM *LOW* (01/03/2012 09:05:00) Hgb [14.0-18.0 g/dL] 13.1 g/dL *LOW* (01/03/2012 09:05:00) Hct [42.0-54.0 %] 39.9 % *LOW* (01/03/2012 09:05:00) MCV [80.0-94.0 fL] 91.4 fL (01/03/2012 09:05:00) MCH [27.0-31.0 pg] 30.1 pg (01/03/2012 09:05:00) MCHC [32.0-36.0 g/dL] 32.9 g/dL (01/03/2012 09:05:00) RDW [11.5-14.5 %] 13.3 % (01/03/2012 09:05:00) Platelet [133-450 K/CMM] 150 K/CMM (01/03/2012 09:05:00) MPV [7.4-10.4 fL] 12.5 fL *HI* (01/03/2012 09:05:00) Segs [45.0-75.0 %] 57.7 % (01/03/2012 09:05:00) Lymphocytes [20.0-40.0 %] 29.6 % (01/03/2012 09:05:00) Monocytes [2.0-12.0 %] 8.0 % (01/03/2012 09:05:00) Eosinophils [0.0-4.0 %] 4.5 % *HI* (01/03/2012 09:05:00) Basophils [0.0-1.0 %] 0.2 % (01/03/2012 09:05:00) Segs-Bands # [1.5-8.1 K/CMM] 3.4 K/CMM (01/03/2012 09:05:00) Lymphocytes # [1.0-5.5 K/CMM] 1.8 K/CMM (01/03/2012 09:05:00) Monocytes # [0.0-0.8 K/CMM] 0.5 K/CMM (01/03/2012 09:05:00) Eosinophils # [0.0-0.5 K/CMM] 0.3 K/CMM (01/03/2012 09:05:00) Basophils # [0.0-0.2 K/CMM] 0.0 K/CMM (01/03/2012 09:05:00) RBC Morph Normal (01/03/2012 09:05:00) Plt Morph See Note (01/03/2012 09:05:00) Giant Plt [None Seen] Slight *ABN* (01/03/2012 09:05:00) Large Plt [None Seen] Slight *ABN* (01/03/2012 09:05:00)
--- OUTSIDE RECORDS SUMMARY | 2018-04-23 06:47 | XMS REPORT | Summary of Care ---
Author Author [facility] Organization [facility] Address Unknown Phone Unavailable Encounter JESSICA Humphries([place]) [id number] Date(s): 09/10/17 - 09/10/17 [facility] [id number] [place] [address]- Encounter Diagnosis Follicular lymphoma, unspecified, intra-abdominal lymph nodes (Final) - 09/15/17 Age-related osteoporosis without current pathological fracture (Final) - Abnormal findings on diagnostic imaging of other specified body structures (Final) - Discharge Disposition: Home or Self Care Attending Physician: Silvio Martinez MD Referring Physician: Silvio Martinez MD Vital Signs No data available for this section Problem List Condition Effective Dates Status Health Status Informant Abdominal Resolved mass(Confirmed) Acid Active reflux(Confirmed) Back pain(Confirmed) Active Carpal tunnel Resolved syndrome(Confirmed)1 Cholesterol Resolved level(Confirmed) Diabetes mellitus2 12/17/13 Active Diabetes Active mellitus(Confirmed) Hyperlipidemia(Confi Active rmed) Hypertension(Confirm Active ed) Hypertension(Confirm Active ed) Simple Active obesity(Confirmed) 1right wrist 2Data migrated from [email or web address] on 01/30/15. Allergies, Adverse Reactions, Alerts Substance Reaction Severity Status doxycycline Active Medications No data available for this section Results CHEM PANEL Most recent to 1 oldest [Reference Range]: eGFR 83 mL/min/1.73m2 1 *NA* (09/10/17 11:15 AM) POC Creatinine 0.9 mg/dL [0.5-1.4 mg/dL] (09/10/17 11:15 AM) 1Result Comment: The eGFR is calculated using [...] from the National Kidney Disease Education Program ( NKDEP) which additionally recommends that when the eGFR is used in patients with extremes of body mass index for purposes of drug dosing, the eGFR should be mul tiplied by the estimated BMI. Immunizations Given and Recorded Vaccine Date Status Refusal Reason pneumococcal 23-valent vaccine 12/03/13 Given Procedures Procedure Date Related Diagnosis Body Site Status Pancreatic biopsy 12/03/13 Completed Femoral angiogram 2009 Completed Bone marrow aspiration 2006 Completed Social History Social History Type Response Substance Abuse Use: None. Alcohol Past Smoking Status Never smoker; Ready to change: No; Concerns about tobacco use in household: No; Exposure to Tobacco Smoke None; Cigarette Smoking Last 365 Days No; Reg Smoking Cessation Counseling No entered on: 09/22/17 Assessment and Plan No data available for this section
--- OUTSIDE RECORDS SUMMARY | 2018-04-23 06:47 | XMS REPORT | Summary of Care ---
Author Author [facility] Organization [facility] Address Unknown Phone Unavailable Encounter [facility]_vasu([place]) [id number] Date(s): 01/28/15 - 01/28/15 [facility] [address] [place] [address]- [phone] Discharge Disposition: Home Attending Physician: Silvio Martinez MD Referring Physician: Silvio Martinez MD Vital Signs No data available for this section Problem List Condition Effective Dates Status Health Status Informant Abdominal Resolved mass(Confirmed) Acid Active reflux(Confirmed) Back pain(Confirmed) Active Carpal tunnel Resolved syndrome(Confirmed)1 Cholesterol Resolved level(Confirmed) Diabetes mellitus2 12/17/13 Active Diabetes Active mellitus(Confirmed) Hyperlipidemia(Confi Active rmed) Hypertension(Confirm Active ed) Hypertension(Confirm Active ed) 1right wrist 2Data migrated from [email or web address] on 01/30/15. Allergies, Adverse Reactions, Alerts Substance Reaction Severity Status NKDA Active Medications No data available for this section Results No data available for this section Immunizations Vaccine Date Refusal Reason pneumococcal 23-valent vaccine 12/03/13 Procedures Procedure Date Related Diagnosis Body Site Pancreatic biopsy 12/03/13 Femoral angiogram 2010 Bone marrow aspiration 2006 Social History Social History Type Response Smoking Status Never smoker; Ready to change: No; Concerns about tobacco use in household: No; Exposure to Tobacco Smoke None; Cigarette Smoking Last 365 Days No; Reg Smoking Cessation Counseling No Assessment and Plan No data available for this section
--- OUTSIDE RECORDS SUMMARY | 2018-04-23 06:47 | XMS REPORT | Summary of Care ---
Author Author [facility] Organization [facility] Address Unknown Phone Unavailable Encounter [facility]([place]) [id number] Date(s): 01/12/15 - 01/16/15 [facility] [address] [place] [address]- [phone] Discharge Disposition: Home Attending Physician: Silvio Martinez MD Admitting Physician: Silvio Martinez MD Vital Signs 1 2 3 Most recent to oldest [Reference Range]: 165.1 cm (01/12/15 8:57 PM) 165.1 cm (01/12/15 7:20 PM) Height 1 2 3 Most recent to oldest [Reference Range]: 78.807 kg (01/16/15 5:00 AM) 79.801 kg (01/14/15 5:00 AM) Current Weight 1 2 3 Most recent to oldest [Reference Range]: 98.2 DegF (01/16/15 1:23 PM) 98.5 DegF (01/16/15 9:37 AM) 98.3 DegF (01/16/15 5:01 AM) Temperature Oral [96.4-99.1 DegF] 1 2 3 Most recent to oldest [Reference Range]: 130/61 mmHg (01/16/15 1:23 PM) 122/73 mmHg (01/16/15 9:37 AM) 112/65 mmHg (01/16/15 5:01 AM) Blood Pressure [90-140/60-90 mmHg] 1 2 3 Most recent to oldest [Reference Range]: 18 BRMIN (01/16/15 1:23 PM) 18 BRMIN (01/16/15 9:37 AM) 18 BRMIN (01/16/15 5:01 AM) Respiratory Rate [14-20 BRMIN] 1 2 3 Most recent to oldest [Reference Range]: 74 bpm (01/16/15 1:23 PM) 71 bpm (01/16/15 9:37 AM) 72 bpm (01/16/15 5:01 AM) Peripheral Pulse Rate [60-100 bpm] 1 2 3 Most recent to oldest [Reference Range]: 80.455 kg (01/12/15 8:57 PM) 79.545 kg (01/12/15 7:20 PM) 79.545 kg (01/12/15 3:59 PM) Weight 1 2 3 Most recent to oldest [Reference Range]: 29.52 m2 (01/12/15 8:57 PM) 29.18 m2 (01/12/15 7:20 PM) Body Mass Index Problem List Condition Effective Dates Status Health Status Informant Abdominal Resolved mass(Confirmed) Acid Active reflux(Confirmed) Back pain(Confirmed) Active Carpal tunnel Resolved syndrome(Confirmed)1 Cholesterol Resolved level(Confirmed) Diabetes Active mellitus(Confirmed) Diabetes Active mellitus(Confirmed) Hyperlipidemia(Confi Active rmed) Hypertension(Confirm Active ed) Hypertension(Confirm Active ed) 1right wrist Allergies, Adverse Reactions, Alerts Substance Reaction Severity Status NKDA Active Medications acetaminophen-hydrocodone 325 mg-5 mg oral tablet 2 tab, Route: PO, Drug Form: TAB, Dosing Weight 80.455, kg, Q4H, PRN Pain Score 4-6, Start date: 01/12/15 21:10:00, Duration: 30 day, Stop date: 02/11/15 21:09: 00 Notes: (Same as: [place] 325/5) Do not exceed 4gm/day of acetaminophen. Start Date: 01/12/15 Stop Date: 01/16/15 Status: Discontinued acetaminophen-hydrocodone 325 mg-5 mg oral tablet 1 tab, Route: PO, Drug Form: TAB, Dosing Weight 80.455, kg, Q4H, PRN Pain Score 1-3, Start date: 01/12/15 21:11:00, Duration: 30 day, Stop date: 02/11/15 21:10: 00 Notes: (Same as: Verden 325/5) Do not exceed 4gm/day of acetaminophen. Start Date: 01/12/15 Stop Date: 01/16/15 Status: Discontinued allopurinol 300 mg, 1 tab, Route: PO, Drug form: TAB, Daily, Dosing Weight 80.455, kg, Start date: 01/13/15 9:00:00, Duration: 30 day, Stop date: 02/11/15 9:00:00 Notes: (Same as: Zyloprim) Start Date: 01/13/15 Stop Date: 01/16/15 Status: Discontinued allopurinol 300 mg oral tablet 300 mg=1 tab, PO, Daily, # 30 tab, 0 Refill(s) Start Date: 01/12/15 Status: Ordered Altace 10 mg, 2 cap, Route: PO, Drug form: CAP, Daily, Start date: 01/13/15 9:00:00, Du ration: 30 day, Stop date: 02/11/15 9:00:00 Notes: (Same as:Altace) Start Date: 01/13/15 Stop Date: 01/16/15 Status: Discontinued amLODIPine 5 mg, 1 tab, Route: PO, Drug form: TAB, Daily, Dosing Weight 80.455, kg, Start d ate: 01/16/15 9:00:00, Duration: 30 day, Stop date: 02/14/15 9:00:00 Notes: (Same as: Norvasc) Start Date: 01/16/15 Stop Date: 01/16/15 Status: Discontinued amLODIPine 10 mg, 2 tab, Route: PO, Drug form: TAB, Daily, Dosing Weight 80.455, kg, Start date: 01/13/15 9:00:00, Duration: 30 day, Stop date: 02/11/15 9:00:00 Notes: (Same as: Norvasc) Start Date: 01/13/15 Stop Date: 01/15/15 Status: Discontinued amLODIPine 5 mg oral tablet 5 mg=1 tab, PO, Daily, # 30 tab, 0 Refill(s) Start Date: 01/16/15 Status: Ordered Ancef + Sodium Chloride 0.9% IV 100 mL 1 gm, Route: IVPB, ABXQ8H, Dosing Weight 80.455, kg, Start date: 01/15/15 22:00: 00, Duration: 30 day, Stop date: 02/14/15 14:00:00 Notes: (Same As: Ancef, Kefzol) MEDICATION WASTE Product Size: 1000 mgP roduct Wasted: ___ mg Start Date: 01/15/15 Stop Date: 01/16/15 Status: Discontinued clindamycin + Sodium Chloride 0.9% IV 50 mL 600 mg, 4 mL, Route: IVPB, ABXQ8H, Dosing Weight 79.545, kg, Start date: 5 21:00:00, Duration: 30 day, Stop date: 02/11/15 13:00:00 Notes: (clindamycin 150 mg/1 ml (600 mg/4 ml VL) INJ) (Same As: Cleocin) Start Date: 01/12/15 Stop Date: 01/15/15 Status: Discontinued Dextrose 50% Syringe 12.5 gm, 25 mL, Route: IVP, Drug Form: INJ, Dosing Weight 79.545, kg, PRN, PRN B lood Glucose Results, Start date: 01/12/15 19:24:00, Duration: 30 day, Stop date : 02/11/15 19:23:00 Start Date: 01/12/15 Stop Date: 01/13/15 Status: Discontinued Dextrose 50% Syringe 25 gm, 50 mL, Route: IVP, Drug Form: INJ, Dosing Weight 79.545, kg, PRN, PRN Blo od Glucose Results, Start date: 01/12/15 19:24:00, Duration: 30 day, Stop date: 02/11/15 19:23:00 Start Date: 01/12/15 Stop Date: 01/13/15 Status: Discontinued Dextrose 50% Syringe 25 gm, 50 mL, Route: IVP, Drug Form: INJ, Dosing Weight 80.455, kg, PRN, PRN Blo od Glucose Results, Start date: 01/13/15 14:24:00, Duration: 30 day, Stop date: 02/12/15 14:23:00 Start Date: 01/13/15 Stop Date: 01/16/15 Status: Discontinued Dextrose 50% Syringe 12.5 gm, 25 mL, Route: IVP, Drug Form: INJ, Dosing Weight 80.455, kg, PRN, PRN B lood Glucose Results, Start date: 01/13/15 14:24:00, Duration: 30 day, Stop date : 02/12/15 14:23:00 Start Date: 01/13/15 Stop Date: 01/16/15 Status: Discontinued docusate Daily, 0 Refill(s) Start Date: 01/12/15 Stop Date: 01/16/15 Status: Discontinued docusate 100 mg, 1 cap, Route: PO, Drug form: CAP, Daily, Dosing Weight 80.455, kg, PRN a s needed for constipation, Start date: 01/12/15 21:13:00, Duration: 30 day, Stop date: 02/11/15 21:12:00 Notes: (Same as: Colace) (Do Not Crush) Start Date: 01/12/15 Stop Date: 01/16/15 Status: Discontinued docusate sodium 100 mg oral capsule 100 mg=1 cap, PO, Daily, PRN as needed for constipation, 0 Refill(s) Start Date: 01/16/15 Status: Ordered enoxaparin 40 mg, 0.4 mL, Route: SUB-Q, Drug form: INJ, [id number], Dosing Weight 80.455, kg, Start date: 01/13/15 12:00:00, Duration: 30 day, Stop date: 02/11/15 12:00:00 Notes: (Same as: Lovenox) Start Date: 01/13/15 Stop Date: 01/16/15 Status: Discontinued gabapentin 300 mg oral capsule 300 mg=1 cap, PO, BID, # 90 cap, 1 Refill(s) Start Date: 01/12/15 Status: Ordered gabapentin 300 mg oral capsule 300 mg, 1 cap, Route: PO, Drug form: CAP, BID, Dosing Weight 80.455, kg, Start d ate: 01/13/15 9:00:00, Duration: 30 day, Stop date: 02/11/15 17:00:00 Notes: (Same as: Neurontin) Start Date: 01/13/15 Stop Date: 01/16/15 Status: Discontinued glipiZIDE 5 mg oral tablet 2.5 mg=0.5 tab, PO, Before Breakfast, # 30 tab, 0 Refill(s) Start Date: 01/16/15 Status: Ordered glipiZIDE-metformin 2.5 mg-500 mg oral tablet 2 tab, Route: PO, Drug Form: TAB, Dosing Weight 80.455, kg, BID, Start date: 9:00:00, Duration: 30 day, Stop date: 02/11/15 17:00:00 Start Date: 01/13/15 Stop Date: 01/12/15 Status: Deleted glucagon 1 mg, Route: IM, Drug form: PDR/INJ, PRN, Dosing Weight 79.545, kg, PRN Blood Gl ucose Results, Start date: 01/12/15 19:24:00, Duration: 30 day, Stop date: 02/11 19:23:00 Start Date: 01/12/15 Stop Date: 01/13/15 Status: Discontinued glucagon 1 mg, Route: IM, Drug form: PDR/INJ, PRN, Dosing Weight 80.455, kg, PRN Blood Gl ucose Results, Start date: 01/13/15 14:24:00, Duration: 30 day, Stop date: 02/12 14:23:00 Start Date: 01/13/15 Stop Date: 01/16/15 Status: Discontinued Glucophage 1,000 mg, 2 tab, Route: PO, Drug form: TAB, BID-Meals, Start date: 01/13/15 8:00 :00, Duration: 30 day, Stop date: 02/11/15 17:00:00 Notes: (Same as: Glucophage) Take with meal Start Date: 01/13/15 Stop Date: 01/16/15 Status: Discontinued Glucotrol 2.5 mg, 0.5 tab, Route: PO, Drug form: TAB, BID-Meals, Start date: 01/14/15 17:0 0:00, Duration: 30 day, Stop date: 02/13/15 8:00:00 Notes: (Same as: Glucotrol) 30 min before meals. Start Date: 01/14/15 Stop Date: 01/15/15 Status: Discontinued Glucotrol 2.5 mg, 0.5 tab, Route: PO, Drug form: TAB, Daily, Start date: 01/16/15 9:00:00, Duration: 30 day, Stop date: 02/14/15 9:00:00 Notes: (Same as: Glucotrol) 30 min before meals. Start Date: 01/16/15 Stop Date: 01/16/15 Status: Discontinued Glucotrol 5 mg, 1 tab, Route: PO, Drug form: TAB, BID-Meals, Start date: 01/13/15 8:00:00, Duration: 30 day, Stop date: 02/11/15 17:00:00 Notes: (Same as: Glucotrol) 30 min before meals. Start Date: 01/13/15 Stop Date: 01/14/15 Status: Discontinued insulin aspart 2 unit, 0.02 mL, Route: SUB-Q, Drug form: SOLN, TID-Before Meals, Dosing Weight 79.545, kg, PRN Blood Glucose Results, Start date: 01/12/15 19:24:00, Duration: 30 day, Stop date: 02/11/15 19:23:00 Notes: Roll in palms of hands gently; Do not shake vigorously. (Same as: NovoLO G)"single patient use only" Stable for 28 days at room temperature.Expires in _ ____ days from Date Start Date: 01/12/15 Stop Date: 01/13/15 Status: Discontinued insulin aspart 5 unit, 0.05 mL, Route: SUB-Q, Drug form: SOLN, TID-Before Meals, Dosing Weight 79.545, kg, PRN Blood Glucose Results, Start date: 01/12/15 19:24:00, Duration: 30 day, Stop date: 02/11/15 19:23:00 Notes: Roll in palms of hands gently; Do not shake vigorously. (Same as: NovoLO G)"single patient use only" Stable for 28 days at room temperature.Expires in _ ____ days from Date Start Date: 01/12/15 Stop Date: 01/13/15 Status: Discontinued insulin aspart 3 unit, 0.03 mL, Route: SUB-Q, Drug form: SOLN, TID-Before Meals, Dosing Weight 79.545, kg, PRN Blood Glucose Results, Start date: 01/12/15 19:24:00, Duration: 30 day, Stop date: 02/11/15 19:23:00 Notes: Roll in palms of hands gently; Do not shake vigorously. (Same as: NovoLO G)"single patient use only" Stable for 28 days at room temperature.Expires in _ ____ days from Date Start Date: 01/12/15 Stop Date: 01/13/15 Status: Discontinued insulin aspart 1 unit, 0.01 mL, Route: SUB-Q, Drug form: SOLN, TID-Before Meals, Dosing Weight 79.545, kg, PRN Blood Glucose Results, Start date: 01/12/15 19:24:00, Duration: 30 day, Stop date: 02/11/15 19:23:00 Notes: Roll in palms of hands gently; Do not shake vigorously. (Same as: NovoLO G)"single patient use only" Stable for 28 days at room temperature.Expires in _ ____ days from Date Start Date: 01/12/15 Stop Date: 01/13/15 Status: Discontinued insulin aspart 4 unit, 0.04 mL, Route: SUB-Q, Drug form: SOLN, TID-Before Meals, Dosing Weight 79.545, kg, PRN Blood Glucose Results, Start date: 01/12/15 19:24:00, Duration: 30 day, Stop date: 02/11/15 19:23:00 Notes: Roll in palms of hands gently; Do not shake vigorously. (Same as: NovoLO G)"single patient use only" Stable for 28 days at room temperature.Expires in _ ____ days from Date Start Date: 01/12/15 Stop Date: 01/13/15 Status: Discontinued insulin aspart 8 unit, 0.08 mL, Route: SUB-Q, Drug form: SOLN, TID-Before Meals, Dosing Weight 80.455, kg, PRN Blood Glucose Results, Start date: 01/13/15 14:24:00, Duration: 30 day, Stop date: 02/12/15 14:23:00 Notes: Roll in palms of hands gently; Do not shake vigorously. (Same as: NovoLO G)"single patient use only" Stable for 28 days at room temperature.Expires in _ ____ days from Date Start Date: 01/13/15 Stop Date: 01/16/15 Status: Discontinued insulin aspart 10 unit, 0.1 mL, Route: SUB-Q, Drug form: SOLN, TID-Before Meals, Dosing Weight 80.455, kg, PRN Blood Glucose Results, Start date: 01/13/15 14:24:00, Duration: 30 day, Stop date: 02/12/15 14:23:00 Notes: Roll in palms of hands gently; Do not shake vigorously. (Same as: NovoLO G)"single patient use only" Stable for 28 days at room temperature.Expires in _ ____ days from Date Start Date: 01/13/15 Stop Date: 01/16/15 Status: Discontinued insulin aspart 3 unit, 0.03 mL, Route: SUB-Q, Drug form: SOLN, Bedtime, Dosing Weight 80.455, k g, PRN Blood Glucose Results, Start date: 01/13/15 14:24:00, Duration: 30 day, S top date: 02/12/15 14:23:00 Notes: Roll in palms of hands gently; Do not shake vigorously. (Same as: NovoLO G)"single patient use only" Stable for 28 days at room temperature.Expires in _ ____ days from Date Start Date: 01/13/15 Stop Date: 01/16/15 Status: Discontinued insulin aspart 2 unit, 0.02 mL, Route: SUB-Q, Drug form: SOLN, Bedtime, Dosing Weight 80.455, k g, PRN Blood Glucose Results, Start date: 01/13/15 14:24:00, Duration: 30 day, S top date: 02/12/15 14:23:00 Notes: Roll in palms of hands gently; Do not shake vigorously. (Same as: NovoLO G)"single patient use only" Stable for 28 days at room temperature.Expires in _ ____ days from Date Start Date: 01/13/15 Stop Date: 01/16/15 Status: Discontinued insulin aspart 4 unit, 0.04 mL, Route: SUB-Q, Drug form: SOLN, Bedtime, Dosing Weight 80.455, k g, PRN Blood Glucose Results, Start date: 01/13/15 14:24:00, Duration: 30 day, S top date: 02/12/15 14:23:00 Notes: Roll in palms of hands gently; Do not shake vigorously. (Same as: NovoLO G)"single patient use only" Stable for 28 days at room temperature.Expires in _ ____ days from Date Start Date: 01/13/15 Stop Date: 01/16/15 Status: Discontinued insulin aspart 1 unit, 0.01 mL, Route: SUB-Q, Drug form: SOLN, Bedtime, Dosing Weight 80.455, k g, PRN Blood Glucose Results, Start date: 01/13/15 14:24:00, Duration: 30 day, S top date: 02/12/15 14:23:00 Notes: Roll in palms of hands gently; Do not shake vigorously. (Same as: NovoLO G)"single patient use only" Stable for 28 days at room temperature.Expires in _ ____ days from Date Start Date: 01/13/15 Stop Date: 01/16/15 Status: Discontinued insulin aspart 4 unit, 0.04 mL, Route: SUB-Q, Drug form: SOLN, TID-Before Meals, Dosing Weight 80.455, kg, PRN Blood Glucose Results, Start date: 01/13/15 14:24:00, Duration: 30 day, Stop date: 02/12/15 14:23:00 Notes: Roll in palms of hands gently; Do not shake vigorously. (Same as: NovoLO G)"single patient use only" Stable for 28 days at room temperature.Expires in _ ____ days from Date Start Date: 01/13/15 Stop Date: 01/16/15 Status: Discontinued insulin aspart 2 unit, 0.02 mL, Route: SUB-Q, Drug form: SOLN, TID-Before Meals, Dosing Weight 80.455, kg, PRN Blood Glucose Results, Start date: 01/13/15 14:24:00, Duration: 30 day, Stop date: 02/12/15 14:23:00 Notes: Roll in palms of hands gently; Do not shake vigorously. (Same as: NovoLO G)"single patient use only" Stable for 28 days at room temperature.Expires in _ ____ days from Date Start Date: 01/13/15 Stop Date: 01/16/15 Status: Discontinued insulin aspart 6 unit, 0.06 mL, Route: SUB-Q, Drug form: SOLN, TID-Before Meals, Dosing Weight 80.455, kg, PRN Blood Glucose Results, Start date: 01/13/15 14:24:00, Duration: 30 day, Stop date: 02/12/15 14:23:00 Notes: Roll in palms of hands gently; Do not shake vigorously. (Same as: NovoLO G)"single patient use only" Stable for 28 days at room temperature.Expires in _ ____ days from Date Start Date: 01/13/15 Stop Date: 01/16/15 Status: Discontinued Januvia 100 mg, 4 tab, Route: PO, Drug form: TAB, QPM, Dosing Weight 80.455, kg, Start d ate: 01/13/15 17:00:00, Stop date: 02/11/15 17:00:00 Notes: Same as Januvia Start Date: 01/13/15 Stop Date: 01/16/15 Status: Discontinued Januvia 50 mg, 2 tab, Route: PO, Drug form: TAB, QPM, Dosing Weight 80.455, kg, Start da te: 01/16/15 17:00:00, Duration: 30 day, Stop date: 02/14/15 17:00:00 Notes: Same as Januvia Start Date: 01/16/15 Stop Date: 01/16/15 Status: Discontinued Januvia 100 mg oral tablet 100 mg=1 tab, PO, QPM, # 30 tab, 0 Refill(s) Start Date: 01/12/15 Stop Date: 01/16/15 Status: Discontinued Januvia 50 mg oral tablet 50 mg=1 tab, PO, Daily, # 30 tab, 0 Refill(s) Start Date: 01/16/15 Stop Date: 01/16/15 Status: Discontinued Keflex 500 mg, 2 cap, Route: PO, Drug form: CAP, ABXQ6H, Dosing Weight 80.455, kg, Star t date: 01/16/15 15:00:00, Duration: 14 day, Stop date: 01/30/15 9:00:00 Notes: Take on empty stomach. (Same As: Keflex) Start Date: 01/16/15 Stop Date: 01/16/15 Status: Discontinued Keflex 500 mg oral capsule 500 mg, PO, ABXQ6H, X 14 day, # 56 caplet, 0 Refill(s) Start Date: 01/16/15 Stop Date: 01/30/15 Status: Ordered Lipitor 10 mg, 1 tab, Route: PO, Drug form: TAB, QPM, Start date: 01/13/15 17:00:00, Dur ation: 30 day, Stop date: 02/11/15 17:00:00 Notes: (Same As: Lipitor) Start Date: 01/13/15 Stop Date: 01/16/15 Status: Discontinued lovastatin 20 mg, Route: PO, Drug form: TAB, QPM, Dosing Weight 80.455, kg, Start date: 17:00:00, Duration: 30 day, Stop date: 02/11/15 17:00:00 Start Date: 01/13/15 Stop Date: 01/12/15 Status: Deleted lovastatin 20 mg oral tablet 20 mg=1 tab, PO, QPM, # 30 tab, 0 Refill(s) Start Date: 01/12/15 Stop Date: 01/16/15 Status: Discontinued metFORMIN 1,000 mg, PO, BID-Meals, 0 Refill(s) Start Date: 01/16/15 Status: Ordered NS (Bolus) IV 250 mL, 250 ml/hr, Infuse Over: 1 hr, Route: IV, 250, Drug form: INJ, ONCE, Prio rity: STAT, Dosing Weight 80.455 kg, Start date: 01/13/15 12:44:00, Duration: 1 doses or times, Stop date: 01/13/15 12:44:00 Start Date: 01/13/15 Stop Date: 01/13/15 Status: Completed NS 1,000 mL 1,000 mL, Rate: 100 ml/hr, Infuse over: 10 hr, Route: IV, Dosing Weight 80.455 k g, Total Volume: 1,000, Start date: 01/13/15 12:44:00, Duration: 30 day, Stop da te: 02/12/15 12:43:00 Start Date: 01/13/15 Stop Date: 01/15/15 Status: Discontinued pantoprazole 40 mg, 1 tab, Route: PO, Drug form: ECTAB, Daily, Dosing Weight 80.455, kg, Star t date: 01/13/15 9:00:00, Duration: 30 day, Stop date: 02/11/15 9:00:00 Notes: Tablet should not be chewed or crushed.(Same as: Protonix) Start Date: 01/13/15 Stop Date: 01/16/15 Status: Discontinued pantoprazole 40 mg oral enteric coated tablet 40 mg=1 tab, PO, Daily, # 30 tab, 0 Refill(s) Start Date: 01/12/15 Status: Ordered pioglitazone 30 mg, 1 tab, Route: PO, Drug form: TAB, Daily, Dosing Weight 80.455, kg, Start date: 01/13/15 9:00:00, Duration: 30 day, Stop date: 02/11/15 9:00:00 Notes: (Same as: Actos) Start Date: 01/13/15 Stop Date: 01/16/15 Status: Discontinued pioglitazone 30 mg oral tablet 30 mg=1 tab, PO, Daily, # 30 tab, 0 Refill(s) Start Date: 01/12/15 Stop Date: 01/16/15 Status: Discontinued potassium chloride 20 mEq, 1 tab, Route: PO, Drug form: ERTAB, ONCE, Dosing Weight 80.455, kg, Prio rity: NOW, Start date: 01/14/15 11:16:00, Stop date: 01/14/15 11:16:00 Notes: (Same as: K-Dur 20)"Do Not Crush" With food and full glass of water Start Date: 01/14/15 Stop Date: 01/14/15 Status: Completed pyridoxine 100 mg oral tablet 100 mg=1 tab, PO, Daily, 0 Refill(s) Start Date: 01/16/15 Status: Ordered quinapril 40 mg, Route: PO, Drug form: TAB, Daily, Dosing Weight 80.455, kg, Start date: 0 01/13/15 9:00:00, Duration: 30 day, Stop date: 02/11/15 9:00:00 Start Date: 01/13/15 Stop Date: 01/12/15 Status: Deleted ramipril 5 mg oral capsule 10 mg=2 cap, PO, Daily, 0 Refill(s) Start Date: 01/16/15 Status: Ordered Saline Flush 0.9% 10 mL, Route: IVP, Drug Form: INJ, Dosing Weight 79.545, kg, PRN, PRN Line Flush , Start date: 01/12/15 17:55:00, Duration: 30 day, Stop date: 02/11/15 17:54:00 Notes: (Same as: BD Posiflush) Start Date: 01/12/15 Stop Date: 01/12/15 Status: Discontinued sitaGLIPtin 25 mg oral tablet 50 mg=2 tab, PO, QPM, 0 Refill(s) Start Date: 01/16/15 Status: Ordered sucralfate 1 gm, 1 tab, Route: PO, Drug form: TAB, Before Meals & Bedtime, Dosing Weight 80.455, kg, Start date: 01/13/15 7:30:00, Duration: 30 day, Stop date: 02/11/15 21:00:00 Notes: May interfere w/enteral feeds - Take 1 hr before or 2 hr after antacids, dairy pdt, meals & minerals - On empty stomach. (Same As: Carafate) Start Date: 01/13/15 Stop Date: 01/16/15 Status: Discontinued sucralfate 1 g oral tablet 1 gm=1 tab, PO, Before Meals & Bedtime, # 120 tab, 3 Refill(s) Start Date: 01/12/15 Stop Date: 02/11/15 Status: Ordered vancomycin 1 gm, 200 mL, Route: IVPB, Drug form: INJ, [id number], Dosing Weight 79.545, kg, St art date: 01/13/15 7:00:00, Duration: 30 day, Stop date: 02/11/15 19:00:00 Notes: TIME CRITICAL MEDICATION Start Date: 01/13/15 Stop Date: 01/15/15 Status: Discontinued vancomycin 2,000 mg, 500 mL, Route: IVPB, Drug form: SOLN, ONCE, Dosing Weight 79.545, kg, TIME CRITICAL MEDICATION, Priority: STAT, Start date: 01/12/15 17:55:00, Stop da te: 01/12/15 17:55:00 Notes: TIME CRITICAL MEDICATIONSame as: Vancocin Infusion rate< 1000 mg: infuse over 1 [id number] - 1500 mg: infuse over 1.5 [id number] - 2000 mg: infuse over 2 hours> 2001 mg: infuse over 2.5 hours Start Date: 01/12/15 Stop Date: 01/12/15 Status: Completed vancomycin + Sodium Chloride 0.9% IV 250 mL 1,200 mg, Route: IVPB, Drug form: INJ, [id number], Dosing Weight 79.545, kg, TIME CR ITICAL MEDICATION, Start date: 01/13/15 3:00:00, Duration: 30 day, Stop date: 19:00:00 Notes: TIME CRITICAL MEDICATION(Same As: Vancocin)Infusion rate< 1000 mg: infuse over 1 [id number] - 1500 mg: infuse over 1.5 [id number] - 2000 mg: infuse over 2 hours> 2001 mg: infuse over 2.5 hours MEDICATION WASTE Product Size: 1000 mgProduct Wasted: ___ mg Start Date: 01/13/15 Stop Date: 01/12/15 Status: Canceled Vitamin B6 100 mg, 1 tab, Route: PO, Drug form: TAB, Daily, Dosing Weight 80.455, kg, Start date: 01/13/15 9:00:00, Duration: 30 day, Stop date: 02/11/15 9:00:00 Notes: (Same as: Vitamin B6) Start Date: 01/13/15 Stop Date: 01/16/15 Status: Discontinued Vitamin B6 100 mg oral tablet 100 mg=1 tab, PO, Daily, # 10 tab, 0 Refill(s) Start Date: 01/12/15 Stop Date: 01/22/15 Status: Ordered Vitamin D3 400 intl units oral capsule 400 IntlUnit=1 cap, PO, Daily, 0 Refill(s) Start Date: 01/12/15 Status: Ordered Zofran 4 mg, 2 mL, Route: IV, Drug form: INJ, Q6H, Dosing Weight 80.455, kg, PRN Nausea , Start date: 01/13/15 14:50:00, Duration: 30 day, Stop date: 02/12/15 14:49:00 Notes: (Same as: Zofran) MEDICATION WASTE Product Size: 4 mgProduct Was emiliano: ___ mg Start Date: 01/13/15 Stop Date: 01/16/15 Status: Discontinued Results ELECTROLYTES 1 2 3 Most recent to oldest [Reference Range]: 144 mEq/L (01/16/15 5:10 AM) 143 mEq/L (01/15/15 4:40 AM) 142 mEq/L (01/14/15 6:16 AM) Sodium Lvl [135-145 mEq/L] 3.9 mEq/L (01/16/15 5:10 AM) 3.5 mEq/L (01/15/15 4:40 AM) 3.4 mEq/L *LOW* (01/14/15 6:16 AM) Potassium Lvl [3.5-5.1 mEq/L] 109 mEq/L (01/16/15 5:10 AM) 109 mEq/L (01/15/15 4:40 AM) 106 mEq/L (01/14/15 6:16 AM) Chloride Lvl [95-109 mEq/L] 29 mEq/L (01/16/15 5:10 AM) 27 mEq/L (01/15/15 4:40 AM) 28 mEq/L (01/14/15 6:16 AM) CO2 [24-32 mEq/L] 9.9 mEq/L *LOW* (01/16/15 5:10 AM) 10.5 mEq/L (01/15/15 4:40 AM) 11.4 mEq/L (01/14/15 6:16 AM) AGAP [10.0-20.0 mEq/L] CHEM PANEL 1 2 3 Most recent to oldest [Reference Range]: 0.8 mg/dL (01/16/15 5:10 AM) 0.8 mg/dL (01/15/15 4:40 AM) 0.7 mg/dL (01/14/15 6:16 AM) Creatinine Lvl [0.5-1.4 mg/dL] 89 mL/min/1.73m2 1 *NA* (01/16/15 5:10 AM) 89 mL/min/1.73m2 2 *NA* (01/15/15 4:40 AM) 94 mL/min/1.73m2 3 *NA* (01/14/15 6:16 AM) eGFR 3 mg/dL *LOW* (01/16/15 5:10 AM) 6 mg/dL *LOW* (01/15/15 4:40 AM) 7 mg/dL (01/14/15 6:16 AM) BUN [7-22 mg/dL] 12 (01/12/15 5:05 PM) B/C Ratio [6-25] 81 mg/dL (01/16/15 5:10 AM) 71 mg/dL (01/15/15 4:40 AM) 45 mg/dL 4 *CRIT* (01/14/15 6:16 AM) Glucose Lvl [70-99 mg/dL] 6.7 g/dL (01/12/15 5:05 PM) Total Protein [6.4-8.4 g/dL] 3.4 g/dL *LOW* (01/12/15 5:05 PM) Albumin Lvl [3.5-5.0 g/dL] 3.3 g/dL (01/12/15 5:05 PM) Globulin [2.0-4.0 g/dL] 1.0 (01/12/15 5:05 PM) A/G Ratio [0.7-1.6] 8.2 mg/dL *LOW* (01/16/15 5:10 AM) 7.5 mg/dL *LOW* (01/15/15 4:40 AM) 7.6 mg/dL *LOW* (01/14/15 6:16 AM) Calcium Lvl [8.5-10.5 mg/dL] 35 unit/L (01/12/15 5:05 PM) ALT [0-65 unit/L] 29 unit/L (01/12/15 5:05 PM) AST [0-37 unit/L] 79 unit/L (01/12/15 5:05 PM) Alk Phos [39-136 unit/L] 437 unit/L *HI* (01/13/15 12:38 PM) LDH [98-192 unit/L] 0.4 mg/dL (01/12/15 5:05 PM) Bili Total [0.2-1.3 mg/dL] 1.4 mMol/L (01/12/15 5:05 PM) Lactic Acid Lvl [0.5-2.2 mMol/L] 2.4 mg/L *HI* (01/13/15 12:38 PM) X-4-Fpogzdigi [1.0-2.3 mg/L] 1Result Comment: The eGFR is calculated using [...] be mul tiplied by the estimated BMI. 2Result Comment: The eGFR is calculated using the [...] be mul tiplied by the estimated BMI. 3Result Comment: The eGFR is calculated using the [...] be mul tiplied by the estimated BMI. 4Result Comment: Critical Result(s) called to harry rinaldi at 01/14/2015 07:24 by chasidy. Read back OK. LIPIDS 1 2 3 Most recent to oldest [Reference Range]: 1.75 *LOW* (01/16/15 5:10 AM) CHD Risk [4.00-7.30] 103 mg/dL (01/16/15 5:10 AM) Chol [<=199 mg/dL] 60 mg/dL (01/16/15 5:10 AM) Trig [<=149 mg/dL] 59 mg/dL *LOW* (01/16/15 5:10 AM) HDL [>=61 mg/dL] 32 mg/dL (01/16/15 5:10 AM) LDL (Calculated) [<=99 mg/dL] 12 *NA* (01/16/15 5:10 AM) VLDL TOXICOLOGY 1 2 3 Most recent to oldest [Reference Range]: 1900 *NA* (01/14/15 6:03 PM) Vanco Tr TND 12.9 ug/ml *NA* (01/14/15 6:03 PM) Vanco Tr HEMATOLOGY 1 2 3 Most recent to oldest [Reference Range]: 3.8 K/CMM (01/16/15 5:10 AM) 4.6 K/CMM (01/15/15 4:40 AM) 7.2 K/CMM (01/14/15 6:16 AM) WBC [3.7-10.4 K/CMM] 3.47 M/CMM *LOW* (01/16/15 5:10 AM) 3.18 M/CMM *LOW* (01/15/15 4:40 AM) 3.38 M/CMM *LOW* (01/14/15 6:16 AM) RBC [4.70-6.10 M/CMM] 10.0 g/dL *LOW* (01/16/15 5:10 AM) 9.3 g/dL *LOW* (01/15/15 4:40 AM) 9.8 g/dL *LOW* (01/14/15 6:16 AM) Hgb [14.0-18.0 g/dL] 30.5 % *LOW* (01/16/15 5:10 AM) 28.0 % *LOW* (01/15/15 4:40 AM) 29.8 % *LOW* (01/14/15 6:16 AM) Hct [42.0-54.0 %] 87.8 fL (01/16/15 5:10 AM) 88.1 fL (01/15/15 4:40 AM) 88.1 fL (01/14/15 6:16 AM) MCV [80.0-94.0 fL] 28.8 pg (01/16/15 5:10 AM) 29.1 pg (01/15/15 4:40 AM) 29.0 pg (01/14/15 6:16 AM) MCH [27.0-31.0 pg] 32.8 g/dL (01/16/15 5:10 AM) 33.0 g/dL (01/15/15 4:40 AM) 32.9 g/dL (01/14/15 6:16 AM) MCHC [32.0-36.0 g/dL] 16.4 % *HI* (01/16/15 5:10 AM) 15.7 % *HI* (01/15/15 4:40 AM) 15.8 % *HI* (01/14/15 6:16 AM) RDW [11.5-14.5 %] 149 K/CMM (01/16/15 5:10 AM) 117 K/CMM *LOW* (01/15/15 4:40 AM) 121 K/CMM *LOW* (01/14/15 6:16 AM) Platelet [133-450 K/CMM] 9.9 fL (01/16/15 5:10 AM) 10.4 fL (01/15/15 4:40 AM) 9.7 fL (01/14/15 6:16 AM) MPV [7.4-10.4 fL] 59.6 % (01/16/15 5:10 AM) 63.8 % (01/15/15 4:40 AM) 66.7 % (01/14/15 6:16 AM) Segs [45.0-75.0 %] 6.0 % (01/12/15 5:05 PM) Bands [0.0-11.0 %] 17.8 % *LOW* (01/16/15 5:10 AM) 14.4 % *LOW* (01/15/15 4:40 AM) 13.5 % *LOW* (01/14/15 6:16 AM) Lymphocytes [20.0-40.0 %] 1.0 % *HI* (01/12/15 5:05 PM) Atypical Lymphs [<=0.0 %] 17.2 % *HI* (01/16/15 5:10 AM) 17.5 % *HI* (01/15/15 4:40 AM) 18.1 % *HI* (01/14/15 6:16 AM) Monocytes [2.0-12.0 %] 4.5 % *HI* (01/16/15 5:10 AM) 3.7 % (01/15/15 4:40 AM) 1.4 % (01/14/15 6:16 AM) Eosinophils [0.0-4.0 %] 0.9 % (01/16/15 5:10 AM) 0.6 % (01/15/15 4:40 AM) 0.3 % (01/14/15 6:16 AM) Basophils [0.0-1.0 %] 3.0 % *HI* (01/12/15 5:05 PM) Metamyelocytes [0.0-1.0 %] 5.0 % *HI* (01/12/15 5:05 PM) Myelocytes [<=0.0 %] 1.0 % *HI* (01/12/15 5:05 PM) Promyelocytes [<=0.0 %] 2.2 K/CMM (01/16/15 5:10 AM) 2.9 K/CMM (01/15/15 4:40 AM) 4.8 K/CMM (01/14/15 6:16 AM) Segs-Bands # [1.5-8.1 K/CMM] 0.7 K/CMM *LOW* (01/16/15 5:10 AM) 0.7 K/CMM *LOW* (01/15/15 4:40 AM) 1.0 K/CMM (01/14/15 6:16 AM) Lymphocytes # [1.0-5.5 K/CMM] 0.6 K/CMM (01/16/15 5:10 AM) 0.8 K/CMM (01/15/15 4:40 AM) 1.3 K/CMM *HI* (01/14/15 6:16 AM) Monocytes # [0.0-0.8 K/CMM] 0.2 K/CMM (01/16/15 5:10 AM) 0.2 K/CMM (01/15/15 4:40 AM) 0.1 K/CMM (01/14/15 6:16 AM) Eosinophils # [0.0-0.5 K/CMM] 100 *NA* (01/12/15 5:05 PM) Tot Cell Ct Normal (01/16/15 5:10 AM) Normal (01/12/15 5:05 PM) RBC Morph Moderate *ABN* (01/12/15 5:05 PM) Dohle Bodies [None Seen] Normal (01/16/15 5:10 AM) Normal (01/12/15 5:05 PM) Plt Morph 38.7 seconds *HI* (01/13/15 12:38 PM) PTT [22.9-35.8 seconds] Immunizations Vaccine Date Refusal Reason pneumococcal 23-valent vaccine 12/03/13 Procedures Procedure Date Related Diagnosis Body Site Pancreatic biopsy 12/03/13 Femoral angiogram 2009 Bone marrow aspiration 2006 Social History Social History Type Response Smoking Status Never smoker; Ready to change: No; Concerns about tobacco use in household: No; Exposure to Tobacco Smoke None; Cigarette Smoking Last 365 Days No; Reg Smoking Cessation Counseling No Assessment and Plan Extracted from: Title: Clinical Document Author: Subhash Norton DO Date: 01/16/15 Progress Daily [facility] Completed: Dec, 12:06 by Subhash Norton DO RM: 228 - 1P, SE DARRICK [id number] (: 1940) M Attending: Silvio Martinez MDPhone: service: Internal Medicine Reason for Admission: LEFT UPPER EXTREMITY CELLULITIS Working DRG: Cellulitis w/o [facility] Code status: Full Code [Ordered]Current diet: Isolation: None Documented Allergies: NKDA SUBJECTIVE Patient seen and examined. Events noted overnight. Labs/Images reviewed doing better, improving OBJECTIVE Labs (Last four charted values) WBC 3.8(JAN 16)4.6(JAN 15)7.2(JAN 14)5.1(JAN 12) Hgb L 10.0(JAN 16)L 9.3(JAN 15)L 9.8(JAN 14)L 11.7(JAN 12) Hct L 30.5(JAN 16)L 28.0(JAN 15)L 29.8(JAN 14)L 35.6(JAN 12) Plt 149(JAN 16)L 117(JAN 15)L 121(JAN 14)L 131(JAN 13) Na 144(JAN 16)143(JAN 15)142(JAN 14)139(JAN 12) K 3.9(JAN 16)3.5(JAN 15)L 3.4(JAN 14)3.8(JAN 12) CO2 29(JAN 16)27(JAN 15)28(JAN 14)30(JAN 12) Cl 109(JAN 16)109(JAN 15)106(JAN 14)102(JAN 12) Cr 0.8(JAN 16)0.8(JAN 15)0.7(JAN 14)0.8(JAN 13) BUN L 3(JAN 16)L 6(JAN 15)7(JAN 14)11(JAN 12) Glucose Random 81(JAN 16)71(JAN 15)C 45(JAN 14)H 118(JAN 12) Ca L 8.2(JAN 16)L 7.5(JAN 15)L 7.6(JAN 14)8.8(JAN 12) PTT H 38.7(JAN 13) ASSESSMENT & EXAM Gen: NAD, Alert, Awake HEENT: NC/AT, PERRLA, oral area clear and moist Neck: No LAD, No JVD, trachea midline Chest: CTAB, no c/w/r CV: RRR, S1, S2 GI: +BS, S, NT, ND, No organomegaly Ext: no c/c/e x LUE swollen and red - with serosanguinous drainage Neuro: AOx3, no gross deficits noted Skin: No notable rashes PLAN & TREATMENT adjusting DM meds - pt was getting too much due to PCP changing and having hypoglycemic episodes pt ok to be on glipizide 2.5 mg daily, metformin 1000mg BID, januvia 50 mg daily ok to d/c home per medicall standpoint cont with daily dressing changes CT arm does not show any pocket of fluid/puss- plain cellulitis afebrile for over 24 hours BP meds decreased as well- will place Rx on chart on medication changes DIAGNOSES & PROBLEMS 1. Left upper extremity cellulitis. 2. History of lymphoma currently undergoing chemotherapy. 3. Type 2 diabetes. 4. Hypotension. Ready for Discharge (Yes/No)? Deras still necessary (Yes/No): Line still necessary (Yes/No): 24hr Labs 01/16 0613 Glucose POC83 01/16 0510 Glucose Lvl81 BUN3 L Creatinine Lvl0.8 Sodium Jtq636 Potassium Lvl3.9 Chloride Afh834 CO229 AGAP9.9 L Calcium Lvl8.2 L eGFR89 WBC3.8 RBC3.47 L Hgb10.0 L Hct30.5 L MCV87.8 MCH28.8 MCHC32.8 RDW16.4 H Fekwprwo584 MPV9.9 Segs59.6 Igsmkmuts00.2 H Jxryityphpy36.8 L Eosinophils4.5 H Basophils0.9 Segs-Bands #2.2 Lymphocytes #0.7 L Monocytes #0.6 Eosinophils #0.2 RBC MorphNormal Plt MorphNormal 01/15 2116 Glucose WQE359 H 01/15 1608 Glucose NIY029 H VitalsTmp(F)[id number] 01/16 09:[id number]/784704--- 01/16 05:0198.018677/198009--- 01/15 23:5598.644359/016526--- 01/15 19:[id number]/[id number]--- 01/15 19:[id number]/147163--- 24 Hr Tmax: 98.7F (37.06c) at 01/15 23:55Vital Signs are the last 5 in the past 48 hours. DateWt(kg)Wt(lb)Ht(cm)Ht(in)Method 01/16 78.81 173.38Measured 01/14 79.80 175.56Measured 01/12 (initial) 79.55 175.00Estimated 65.10 65.00Stated I&ORecordInOutBal 12/2723hr Tot 100 0 100 12/2623hr Tot 431 0 431 Medications (29) Active Scheduled Meds (13): 01/13/15 allopurinol 300 mg PO Daily 01/16/15 amLODIPine 5 mg PO Daily 01/13/15 atorvastatin (Lipitor) 10 mg PO QPM 01/15/15 ceFAZolin + Sodium Chloride 0.9% IV 100 mL (Ancef + Sodium Chloride 0.9% IV 100 mL) 1 gm IVPB ABXQ8H 200 ml/hr 01/13/15 enoxaparin 40 mg SUB-Q [id number] 01/13/15 gabapentin (gabapentin 300 mg oral capsule) 300 mg PO BID 01/16/15 glipiZIDE (Glucotrol) 2.5 mg PO Daily 01/13/15 metFORMIN (Glucophage) 1,000 mg PO BID-Meals 01/13/15 pantoprazole 40 mg PO Daily 01/13/15 pyridoxine (Vitamin B6) 100 mg PO Daily 01/13/15 ramipril (Altace) 10 mg PO Daily 01/16/15 sitaGLIPtin (Januvia) 50 mg PO QPM 01/13/15 sucralfate 1 gm PO Before Meals & Bedtime Unscheduled Meds: None PRN Meds (16): 01/13/15 Dextrose 50% in Water IV (Dextrose 50% Syringe) 12.5 gm IVP PRN 01/13/15 Dextrose 50% in Water IV (Dextrose 50% Syringe) 25 gm IVP PRN 01/12/15 acetaminophen-hydrocodone (acetaminophen-hydrocodone 325 mg-5 mg oral tablet) 2 tab PO Q4H 01/12/15 acetaminophen-hydrocodone (acetaminophen-hydrocodone 325 mg-5 mg oral tablet) 1 tab PO Q4H 01/12/15 docusate 100 mg PO Daily 01/13/15 glucagon 1 mg IM PRN 01/13/15 insulin aspart 2 unit SUB-Q TID-Before Meals 01/13/15 insulin aspart 4 unit SUB-Q TID-Before Meals 01/13/15 insulin aspart 6 unit SUB-Q TID-Before Meals 01/13/15 insulin aspart 8 unit SUB-Q TID-Before Meals 01/13/15 insulin aspart 10 unit SUB-Q TID-Before Meals 01/13/15 insulin aspart 1 unit SUB-Q Bedtime 01/13/15 insulin aspart 2 unit SUB-Q Bedtime 01/13/15 insulin aspart 3 unit SUB-Q Bedtime 01/13/15 insulin aspart 4 unit SUB-Q Bedtime 01/13/15 ondansetron (Zofran) 4 mg IV Q6H One Time Meds: None Continuous Infusions: None
--- OUTSIDE RECORDS SUMMARY | 2018-04-23 06:47 | XMS REPORT | Summary of Care ---
Author Organization Unknown Address Unknown Phone Unavailable Encounter [facility] Yandel([place]) [id number] Date(s): 07/10/14 - 07/10/14 [facility] [address] Discharge Diagnosis: Fall Discharge Diagnosis: Skin tear of elbow without complication Discharge Diagnosis: Left elbow contusion Discharge Disposition: Home Physician Attending: Evans Thompson MD Reason for Visit FALL Vital Signs Most recent to 1 2 oldest [Reference Range]: Height 162.56 cm (07/10/14 5:20 PM) Temperature Oral 98.8 DegF 98.9 DegF [96.4-99.1 DegF] (07/10/14 7:57 PM) (07/10/14 5:20 PM) Systolic Blood 128 mmHg 133 mmHg Pressure [90-140 (07/10/14 7:57 PM) (07/10/14 5:20 PM) mmHg] Diastolic Blood 73 mmHg 73 mmHg Pressure [60-90 (07/10/14 7:57 PM) (07/10/14 5:20 PM) mmHg] Respiratory Rate 16 BRMIN 18 BRMIN [14-20 BRMIN] (07/10/14 7:57 PM) (07/10/14 5:20 PM) Peripheral Pulse 64 bpm 64 bpm Rate [60-100 bpm] (07/10/14 7:57 PM) (07/10/14 5:20 PM) Weight 81.818 kg (07/10/14 5:20 PM) Body Mass Index 30.96 m2 (07/10/14 5:20 PM) Problem List Condition Effective Dates Status Health Status Informant Abdominal Resolved mass(Confirmed) Acid Active reflux(Confirmed) Back pain(Confirmed) Active Carpal tunnel Resolved syndrome(Confirmed)1 Cholesterol Resolved level(Confirmed) Diabetes Active mellitus(Confirmed) Diabetes Active mellitus(Confirmed) Hyperlipidemia(Confi Active rmed) Hypertension(Confirm Active ed) Hypertension(Confirm Active ed) 1right wrist Allergies, Adverse Reactions, Alerts Substance Reaction Severity Status NKDA Active Medications No data available for this section Medications Administered During Your Visit No data available for this section Immunizations Vaccine Date Refusal Reason pneumococcal 23-valent vaccine 12/03/13 Social History Social History Type Response Smoking Status Never smoker, Ready to change: No, Concerns about tobacco use in household: No, Exposure to Tobacco Smoke None, Cigarette Smoking Last 365 Days No, Reg Smoking Cessation Counseling No
--- OUTSIDE RECORDS SUMMARY | 2018-04-23 06:47 | XMS REPORT | Summary of Care ---
Author Author [facility] Organization [facility] Address Unknown Phone Unavailable Encounter JESSICA Humphries([place]) [id number] Date(s): 09/16/17 - 09/16/17 [facility] [address] [facility] [address] [place] [address]- [phone] Discharge Disposition: Home or Self Care Attending Physician: Ben Cai MD Referring Physician: Rina Mayfield DO Vital Signs Most recent to 1 oldest [Reference Range]: Height 162.56 cm (09/16/17 9:49 AM) Temperature Oral 97.7 DegF [96.4-99.1 DegF] (09/16/17 9:49 AM) Blood Pressure 132/68 mmHg [90-140/60-90 mmHg] (09/16/17 9:49 AM) Peripheral Pulse 57 bpm Rate [60-100 bpm] *LOW* (09/16/17 9:49 AM) Weight 87.869 kg (09/16/17 9:49 AM) Body Mass Index 33.25 m2 (09/16/17 9:49 AM) Problem List Condition Effective Dates Status Health Status Informant Abdominal Resolved mass(Confirmed) Acid Active reflux(Confirmed) Back pain(Confirmed) Active Carpal tunnel Resolved syndrome(Confirmed)1 Cholesterol Resolved level(Confirmed) Diabetes mellitus2 12/17/13 Active Diabetes Active mellitus(Confirmed) Hyperlipidemia(Confi Active rmed) Hypertension(Confirm Active ed) Hypertension(Confirm Active ed) Simple Active obesity(Confirmed) 1right wrist 2Data migrated from [employer] on 01/30/15. Allergies, Adverse Reactions, Alerts Substance Reaction Severity Status doxycycline Active Medications lovastatin 20 mg oral tablet 20 mg=1 tab, PO, Daily, 0 Refill(s) Start Date: 09/16/17 Status: Ordered quinapril 40 mg oral tablet 40 mg=1 tab, PO, Daily, 0 Refill(s) Start Date: 09/16/17 Status: Ordered Results No data available for this section Immunizations Given and Recorded Vaccine Date Status [...]
--- OUTSIDE RECORDS SUMMARY | 2018-04-23 06:47 | XMS REPORT | Summary of Care ---
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) - Obesity, unspecified (Final) - Gastro-esophageal reflux disease without esophagitis (Final) - Essential (primary) hypertension (Final) - Hyperlipidemia, unspecified (Final) - Body mass index (BMI) 33.0-33.9, adult (Final) - Discharge Disposition: Home or Self Care Attending Physician: Ben Cai MD Referring Physician: Ben Cai MD Vital Signs 1 2 3 Most recent to oldest [Reference Range]: 165.1 cm (09/18/17 3:28 PM) Height 97.7 DegF (09/18/17 3:28 PM) Temperature Oral [96.4-99.1 DegF] 128/52 mmHg (09/22/17 12:00 PM) 129/65 mmHg (09/22/17 11:30 AM) 116/60 mmHg (09/22/17 11:27 AM) Blood Pressure [90-140/60-90 mmHg] 13 BRMIN *LOW* (09/22/17 11:30 AM) 14 BRMIN (09/22/17 11:27 AM) 14 BRMIN (09/22/17 11:12 AM) Respiratory Rate [14-20 BRMIN] 63 bpm (09/22/17 10:11 AM) 53 bpm *LOW* (09/18/17 3:28 PM) Peripheral Pulse Rate [60-100 bpm] 87.955 kg (09/18/17 3:28 PM) Weight 32.27 m2 (09/18/17 3:28 PM) Body Mass Index Problem List Condition Effective Dates Status Health Status Informant Abdominal Resolved mass(Confirmed) Acid Active reflux(Confirmed) Back pain(Confirmed) Active Carpal tunnel Resolved syndrome(Confirmed)1 Cholesterol Resolved level(Confirmed) Diabetes mellitus2 12/17/13 Active Diabetes Active mellitus(Confirmed) Hyperlipidemia(Confi Active rmed) Hypertension(Confirm Active ed) Hypertension(Confirm Active ed) Simple Active obesity(Confirmed) 1right wrist 2Data migrated from [employer] on 01/30/15. Allergies, Adverse Reactions, Alerts Substance Reaction Severity Status doxycycline Active Medications Ancef 2 gm, Route: IVPB, ONCE, Dosing Weight 87.955, kg, Start date: 09/18/17 15:38:00 CDT, Stop date: 09/18/17 15:38:00 CDT, Surgical Prophylaxis Only; For patients < 120 kg, ABX Indication: Surgical Prophylaxis Start Date: 09/18/17 Stop Date: 10/02/17 Status: Discontinued ANES acetaminophen 1,000 mg, Route: IVPB, Drug form: INJ, ONCE, Dosing Weight 87.955, kg, PRN Pain Score 1-3, Start date: 09/22/17 11:05:00 CDT Start Date: 09/22/17 Stop Date: 09/22/17 Status: Discontinued ANES albuterol 0.083% inhalation solution 2.49 mg, Route: NEB, Q20Min, Dosing Weight 87.955, kg, PRN Wheezing, Priority: S TAT, Start date: 09/22/17 11:05:00 CDT, Duration: 30 day, Stop date: 10/22/17 11 :04:00 CDT Start Date: 09/22/17 Stop Date: 09/22/17 Status: Discontinued ANES diphenhydrAMINE 12.5 mg, Route: IVP, Drug form: INJ, Q6H, Dosing Weight 87.955, kg, PRN Itching, Start date: 09/22/17 11:05:00 CDT, Duration: 30 day, Stop date: 10/22/17 11:04: 00 CDT Start Date: 09/22/17 Stop Date: 09/22/17 Status: Discontinued ANES fentaNYL 50 microgram, Route: IVP, Q5Min, Dosing Weight 87.955, kg, PRN Pain Score 7-10, Priority: Routine, Start date: 09/22/17 11:05:00 CDT, Duration: 2 doses or times , Stop date: Limited # of times Start Date: 09/22/17 Stop Date: 09/22/17 Status: Discontinued ANES fentaNYL 25 microgram, Route: IVP, Q5Min, Dosing Weight 87.955, kg, PRN Pain Score 4-6, P riority: Routine, Start date: 09/22/17 11:05:00 CDT, Duration: 4 doses or times, Stop date: Limited # of times Start Date: 09/22/17 Stop Date: 09/22/17 Status: Discontinued ANES flumazenil 0.2 mg, Route: IVP, PRN, Dosing Weight 87.955, kg, PRN Benzodiazepine Reversal, Initial dose, Start date: 09/22/17 11:05:00 CDT, Duration: 30 day, Stop date: 11:04:00 CDT Start Date: 09/22/17 Stop Date: 09/22/17 Status: Discontinued ANES HYDROmorphone 0.5 mg, Route: IVP, Q5Min, Dosing Weight 87.955, kg, PRN Pain Score 7-10, Start date: 09/22/17 11:05:00 CDT, Duration: 4 doses or times, Stop date: Limited # of times Start Date: 09/22/17 Stop Date: 09/22/17 Status: Discontinued ANES meperidine 12.5 mg, Route: IVP, Q30Min, Dosing Weight 87.955, kg, PRN Other -See Comment, F or shivering, Start date: 09/22/17 11:05:00 CDT, Duration: 2 doses or times, Sto p date: Limited # of times Start Date: 09/22/17 Stop Date: 09/22/17 Status: Discontinued ANES naloxone 0.4 mg, Route: IVP, Q2MIN, Dosing Weight 87.955, kg, PRN Narcotic Reversal, Star t date: 09/22/17 11:05:00 CDT, Duration: 8 doses or times, Stop date: Limited # of times Start Date: 09/22/17 Stop Date: 09/22/17 Status: Discontinued ANES naloxone 0.1 mg, Route: SUB-Q, Q6H, Dosing Weight 87.955, kg, PRN Itching, Start date: 11:05:00 CDT, Duration: 30 day, Stop date: 10/22/17 11:04:00 CDT Start Date: 09/22/17 Stop Date: 09/22/17 Status: Discontinued ANES ondansetron 4 mg, Route: IVP, ONCE, Dosing Weight 87.955, kg, PRN Nausea & Vomiting, Start date: 09/22/17 11:05:00 CDT Start Date: 09/22/17 Stop Date: 09/22/17 Status: Discontinued ANES oxyCODONE 5 mg, Route: PO, Drug form: TAB, Q4H, Dosing Weight 87.955, kg, PRN Pain Score 4 -6, Start date: 09/22/17 11:05:00 CDT, Duration: 30 day, Stop date: 10/22/17 11: 04:00 CDT Start Date: 09/22/17 Stop Date: 09/22/17 Status: Discontinued ANES oxyCODONE 5 mg, Route: NG, Drug form: LIQ, Q4H, Dosing Weight 87.955, kg, PRN Pain Score 4 -6, Start date: 09/22/17 11:05:00 CDT, Duration: 30 day, Stop date: 10/22/17 11: 04:00 CDT Start Date: 09/22/17 Stop Date: 09/22/17 Status: Discontinued ANES oxyCODONE 10 mg, Route: PO, Drug form: TAB, Q4H, Dosing Weight 87.955, kg, PRN Pain Score 7-10, Start date: 09/22/17 11:05:00 CDT, Duration: 30 day, Stop date: 10/22/17 1 1:04:00 CDT Start Date: 09/22/17 Stop Date: 09/22/17 Status: Discontinued ANES oxyCODONE 10 mg, Route: NG, Drug form: LIQ, Q4H, Dosing Weight 87.955, kg, PRN Pain Score 7-10, Start date: 09/22/17 11:05:00 CDT, Duration: 30 day, Stop date: 10/22/17 1 1:04:00 CDT Start Date: 09/22/17 Stop Date: 09/22/17 Status: Discontinued ANES promethazine 6.25 mg, Route: IVPB, ONCE, Dosing Weight 87.955, kg, PRN Nausea & Vomiting, Start date: 09/22/17 11:05:00 CDT Start Date: 09/22/17 Stop Date: 09/22/17 Status: Discontinued ANES scopolamine 1.5 mg transdermal film 1 patch, Route: TOP, Drug Form: ERFILM, Dosing Weight 87.955, kg, ONCE, Apply be hind ear. Avoid use in elderly., Start date: 09/22/17 11:05:00 CDT, Stop date: 09/22/17 11:05:00 CDT Start Date: 09/22/17 Stop Date: 10/02/17 Status: Discontinued ceFAZolin (ANES) 1000 mg Route: IV, Drug form: INJ, Start date: 09/22/17 10:22:00 CDT, Stop date: 8 11:22:00 CDT Start Date: 09/22/17 Stop Date: 09/22/17 Status: Completed ePHEDrine (ANES) Route: IV, Drug form: INJ, ONCE, Stop date: 09/22/17 11:00:00 CDT Start Date: 09/22/17 Stop Date: 09/22/17 Status: Completed famotidine (ANES) Route: IV, Drug form: INJ, ONCE, Stop date: 09/22/17 11:00:00 CDT Start Date: 09/22/17 Stop Date: 09/22/17 Status: Completed fentaNYL (ANES) Route: IV, Drug form: INJ, ONCE, Stop date: 09/22/17 11:00:00 CDT Start Date: 09/22/17 Stop Date: 09/22/17 Status: Completed Lactated Ringers Injection IV (ANES) 1000 mL Route: IV, Total Volume: 1,000, Start date: 09/22/17 10:22:00 CDT, Stop date: 11:22:00 CDT Start Date: 09/22/17 Stop Date: 09/22/17 Status: Completed Lactated Ringers Injection IV 1000 mL 1,000 mL, Rate: 25 ml/hr, Infuse over: 40 hr, Route: IV, Dosing Weight 87.955 kg , Total Volume: 1,000, Start date: 09/22/17 10:09:00 CDT, Duration: 30 day, Stop date: 10/22/17 10:08:00 CDT, 2.03, m2 Start Date: 09/22/17 Stop Date: 09/22/17 Status: Discontinued lidocaine (ANES) Route: IV, Drug form: INJ, ONCE, Stop date: 09/22/17 11:00:00 CDT Start Date: 09/22/17 Stop Date: 09/22/17 Status: Completed ondansetron (ANES) Route: IV, Drug form: INJ, ONCE, Stop date: 09/22/17 11:00:00 CDT Start Date: 09/22/17 Stop Date: 09/22/17 Status: Completed propofol (ANES) Route: IV, Drug form: INJ, ONCE, Stop date: 09/22/17 11:00:00 CDT Start Date: 09/22/17 Stop Date: 09/22/17 Status: Completed sitaGLIPtin 25 mg oral tablet 25 mg=1 tab, PO, Daily, # 30 tab, 0 Refill(s) Start Date: 09/18/17 Status: Ordered sucralfate 1 g oral tablet 1 gm=1 tab, PO, QID, # 120 tab, 0 Refill(s) Start Date: 09/18/17 Stop Date: 10/18/17 Status: Ordered Results ELECTROLYTES Most recent to 1 oldest [Reference Range]: Sodium Lvl [135-145 141 mEq/L mEq/L] (09/18/17 3:39 PM) Potassium Lvl 4.2 mEq/L [3.5-5.1 mEq/L] (09/18/17 3:39 PM) Chloride Lvl [95-109 107 mEq/L mEq/L] (09/18/17 3:39 PM) CO2 [24-32 mEq/L] 31 mEq/L (09/18/17 3:39 PM) AGAP [10.0-20.0 7.2 mEq/L mEq/L] *LOW* (09/18/17 3:39 PM) CHEM PANEL Most recent to 1 oldest [Reference Range]: Creatinine Lvl 0.80 mg/dL [0.50-1.40 mg/dL] (09/18/17 3:39 PM) eGFR 87 mL/min/1.73m2 1 *NA* (09/18/17 3:39 PM) BUN [7-22 mg/dL] 9 mg/dL (09/18/17 3:39 PM) B/C Ratio [6-25] 11 (09/18/17 3:39 PM) Glucose Lvl [70-99 72 mg/dL mg/dL] (09/18/17 3:39 PM) Total Protein 6.9 g/dL [6.4-8.4 g/dL] (09/18/17 3:39 PM) Albumin Lvl [3.5-5.0 3.9 g/dL g/dL] (09/18/17 3:39 PM) Globulin [2.7-4.2 3.0 g/dL g/dL] (09/18/17 3:39 PM) A/G Ratio [0.7-1.6] 1.3 (09/18/17 3:39 PM) Calcium Lvl 8.6 mg/dL [8.5-10.5 mg/dL] (09/18/17 3:39 PM) ALT [0-65 unit/L] 27 unit/L (09/18/17 3:39 PM) AST [0-37 unit/L] 22 unit/L (09/18/17 3:39 PM) Alk Phos [39-136 64 unit/L unit/L] (09/18/17 3:39 PM) Bili Total [0.2-1.3 0.3 mg/dL mg/dL] (09/18/17 3:39 PM) 1Result Comment: The eGFR is calculated using [...] be mul tiplied by the estimated BMI. SPECIAL CHEMISTRY Most recent to 1 oldest [Reference Range]: Hgb A1C [<=5.6 %] 6.5 % *HI* (09/18/17 3:42 PM) HEMATOLOGY Most recent to 1 oldest [Reference Range]: WBC [3.7-10.4 K/CMM] 6.2 K/CMM (09/18/17 3:39 PM) RBC [4.70-6.10 4.14 M/CMM M/CMM] *LOW* (09/18/17 3:39 PM) Hgb [14.0-18.0 g/dL] 12.7 g/dL *LOW* (09/18/17 3:39 PM) Hct [42.0-54.0 %] 38.2 % *LOW* (09/18/17 3:39 PM) MCV [80.0-94.0 fL] 92.2 fL (09/18/17 3:39 PM) MCH [27.0-31.0 pg] 30.6 pg (09/18/17 3:39 PM) MCHC [32.0-36.0 33.2 g/dL g/dL] (09/18/17 3:39 PM) RDW [11.5-14.5 %] 13.3 % (09/18/17 3:39 PM) MPV [7.4-10.4 fL] 12.1 fL *HI* (09/18/17 3:39 PM) Platelet [133-450 132 K/CMM K/CMM] *LOW* (09/18/17 3:39 PM) Segs [45.0-75.0 %] 58.9 % (09/18/17 3:39 PM) Lymphocytes 29.1 % [20.0-40.0 %] (09/18/17 3:39 PM) Monocytes [2.0-12.0 7.2 % %] (09/18/17 3:39 PM) Eosinophils [0.0-4.0 4.0 % %] (09/18/17 3:39 PM) Basophils [0.0-1.0 0.8 % %] (09/18/17 3:39 PM) Segs-Bands # 3.7 K/CMM [1.5-8.1 K/CMM] (09/18/17 3:39 PM) Lymphocytes # 1.8 K/CMM [1.0-5.5 K/CMM] (09/18/17 3:39 PM) Monocytes # [0.0-0.8 0.4 K/CMM K/CMM] (09/18/17 3:39 PM) Eosinophils # 0.2 K/CMM [0.0-0.5 K/CMM] (09/18/17 3:39 PM) RBC Morph Normal (09/18/17 3:39 PM) Large Plt Few *NA* (09/18/17 3:39 PM) Immunizations Given and Recorded Vaccine Date Status [...] No entered on: 09/22/17 Assessment and Plan Extracted from: Title: Clinical Document Author: Ben Cai MD Date: 09/22/17 OPERATIVE REPORT DATE OF PROCEDURE: 09/22/2021. PREOPERATIVE DIAGNOSIS: History of lymphoma. POSTOPERATIVE DIAGNOSIS: History of lymphoma. OPERATION: Port-A-Cath removal. SURGEON: Ben Cai MD HYDROPULPER OPERATOR: None. ANESTHESIA: General. ESTIMATED BLOOD LOSS: Minimal. FINDINGS: Port-A-Cath removed in its entirety intact and was discarded. IV FLUIDS: Per anesthesia. POST OP PLAN: Discharge home. INDICATIONS: 77-year-old man known to me from previous encounters with a history of lymphoma. He underwent adequate treatment by his oncologist and appear to be in remission. He was given the clearance by his oncologist for the Port-A-Cath to be removed. The option was offered to the patient, risks and benefits were discussed and the patient voiced understanding and consented to the procedure. PROCEDURE IN DETAIL: Patient was taken to the operating room, placed in the operating table, and intubated by anesthesia. Chest wall over the Port-A-Cath was prepped and draped in usual sterile fashion a timeout was called the correct patient as well as procedure was verified. The patient had SCDs on for thromboembolic prophylaxis and received antibiotics within 1 of the incision. Local anesthesia, 0.5% Marcaine was infiltrated over the port. Incision was made carried down electrocautery. The port was encountered, dissected out from the underlying subcutaneous tissue and removed intact and discarded. The capsule surrounding port was also dissected out from the underlying subcutaneous tissue with a combination of sharp as well as blunt dissection. The deep dermal tissue was reapproximated using 3-0 Vicryl in an interrupted manner, the skin was closed using 4-0 Monocryl in running subcuticular manner. The patient was extubated in the operating room and transferred to recovery in stable condition. All instrument and laparotomy counts are correct.
--- OUTSIDE RECORDS SUMMARY | 2018-04-23 06:47 | XMS REPORT | Summary of Care ---
Author Organization Unknown Address Unknown Phone Unavailable Encounter [facility](FIN) [id number] Date(s): 07/09/14 - 07/09/14 [facility] [address] Discharge Disposition: Home Physician Attending: Silvio Martinez MD Physician_Referring: Silvio Martinez MD Reason for Visit LYMPHOMA Problem List Condition Effective Dates Status Health [...]
--- OUTSIDE RECORDS SUMMARY | 2018-04-23 06:47 | XMS REPORT | Summary of Care ---
Author Organization Unknown Address Unknown Phone Unavailable Encounter HQ Barbara_vasu(FIN) [id number] Date(s): 12/26/14 - 12/26/14 [facility] [address] [phone] Discharge Disposition: Home Physician Attending: Luisito Leslie MD Vital Signs No data available for [...]
--- OUTSIDE RECORDS SUMMARY | 2018-04-23 06:47 | XMS REPORT | Summary of Care ---
Author Organization Unknown Address Unknown Phone Unavailable Encounter [facility]([place]) [id number] Date(s): 12/31/13 - 12/31/13 [facility] [address] Discharge Disposition: Home Physician Attending: Ben Cai MD Physician_Referring: Ben Cai MD Reason for Visit UNK Vital Signs 1 2 3 Most recent to oldest [Reference Range]: 160.02 cm (12/28/13 3:01 PM) Height 98.0 DegF (12/28/13 3:43 PM) Temperature Oral [96.4-99.1 DegF] 120 mmHg (12/31/13 4:15 PM) 122 mmHg (12/31/13 4:00 PM) 116 mmHg (12/31/13 3:45 PM) Systolic Blood Pressure [90-140 mmHg] 50 mmHg *LOW* (12/31/13 4:15 PM) 56 mmHg *LOW* (12/31/13 4:00 PM) 53 mmHg *LOW* (12/31/13 3:45 PM) Diastolic Blood Pressure [60-90 mmHg] 14 BRMIN (12/31/13 3:00 PM) 13 BRMIN *LOW* (12/31/13 2:45 PM) 16 BRMIN (12/31/13 2:30 PM) Respiratory Rate [14-20 BRMIN] 58 bpm *LOW* (12/28/13 3:43 PM) Peripheral Pulse Rate [60-100 bpm] 81.818 kg (12/28/13 3:01 PM) Weight 31.95 m2 (12/28/13 3:01 PM) Body Mass Index Problem List Condition Effective Dates Status Health Status Informant Abdominal Resolved mass(Confirmed) Acid Active reflux(Confirmed) Back pain(Confirmed) Active Carpal tunnel Resolved syndrome(Confirmed)1 Cholesterol Resolved level(Confirmed) Diabetes Active mellitus(Confirmed) Diabetes Active mellitus(Confirmed) Hyperlipidemia(Confi Active rmed) Hypertension(Confirm Active ed) Hypertension(Confirm Active ed) 1right wrist Allergies, Adverse Reactions, Alerts Substance Reaction Severity Status NKDA Active Medications cefOXitin + Sodium Chloride 0.9% IV 100 mL 2 gm, Route: IVPB, ONCALL, Dosing Weight 85, kg, Start date: 12/28/13 16:00:00, Duration: 5 day, Stop date: 01/02/14 15:59:00 Notes: (Same As: Mefoxin) Start Date: 12/28/13 Stop Date: 12/31/13 Status: Discontinued Colace 100 mg oral capsule 100 mg=1 cap, PO, BID, Constipation, # 20 cap, 0 Refill(s) Start Date: 12/31/13 Status: Ordered fentaNYL 25 microgram, Route: IVP, Q5Min, Dosing Weight 81.818, kg, PRN Pain Score 4-6, S tart date: 12/31/13 15:41:00, Duration: 4 doses or times, Stop date: Limited # o f times Start Date: 12/31/13 Stop Date: 12/31/13 Status: Discontinued flumazenil 0.2 mg, Route: IVP, PRN, Dosing Weight 81.818, kg, PRN Benzodiazepine Reversal, Initial dose, Start date: 12/31/13 15:41:00, Duration: 30 day, Stop date: 15:40:00 Start Date: 12/31/13 Stop Date: 12/31/13 Status: Discontinued hydrALAZINE 10 mg, Route: IVP, Q20Min, Dosing Weight 81.818, kg, PRN Elevated BP, Start date : 12/31/13 15:41:00, Duration: 2 doses or times, Stop date: Limited # of times Start Date: 12/31/13 Stop Date: 12/31/13 Status: Discontinued hydromorphone 0.5 mg, Route: IVP, Q5Min, Dosing Weight 81.818, kg, PRN Pain Score 7-10, Start date: 12/31/13 15:41:00, Duration: 4 doses or times, Stop date: Limited # of pollo es Start Date: 12/31/13 Stop Date: 12/31/13 Status: Discontinued ibuprofen 800 mg oral tablet 800 mg=1 tab, PO, Q8H, Pain, Take with food, # 30 tab, 0 Refill(s) Special Instructions: Take with food Start Date: 12/28/13 Status: Ordered Lactated Ringers Injection IV 1000 mL 1,000 mL, Rate: 25 ml/hr, Infuse over: 40 hr, Route: IV, Dosing Weight 81.818 kg , Total Volume: 1,000, Start date: 12/31/13 10:04:00, Duration: 30 day, Stop jessenia e: 01/30/14 10:03:00 Start Date: 12/31/13 Stop Date: 12/31/13 Status: Discontinued metoprolol 1 mg, Route: IVP, Q5Min, Dosing Weight 81.818, kg, PRN Other -See Comment, Start date: 12/31/13 15:41:00, Duration: 5 doses or times, Stop date: Limited # of ti mes Start Date: 12/31/13 Stop Date: 12/31/13 Status: Discontinued naloxone 0.04 mg, Route: IVP, Q2MIN, Dosing Weight 81.818, kg, PRN Narcotic Reversal, Sta rt date: 12/31/13 15:41:00, Duration: 8 doses or times, Stop date: Limited # of times Start Date: 12/31/13 Stop Date: 12/31/13 Status: Discontinued [place] 10/325 oral tablet 1 tab, Route: PO, Dosing Weight 81.818, kg, ONCE, Start date: 12/31/13 15:41:00, Stop date: 12/31/13 15:41:00 Start Date: 12/31/13 Stop Date: 12/31/13 Status: Discontinued [place] 5/325 oral tablet 1 tab, PO, Q4-6H, as needed for pain, # 30 tab, 0 Refill(s) Start Date: 12/31/13 Status: Ordered ondansetron 4 mg, Route: IVP, ONCE, Dosing Weight 81.818, kg, PRN Nausea & Vomiting, Start date: 12/31/13 15:41:00 Start Date: 12/31/13 Stop Date: 12/31/13 Status: Discontinued oxyCODONE 5 mg, Route: PO, Drug form: TAB, Q4H, Dosing Weight 81.818, kg, PRN Pain Score 4 -6, Start date: 12/31/13 15:41:00, Duration: 30 day, Stop date: 01/30/14 15:40:0 0 Start Date: 12/31/13 Stop Date: 12/31/13 Status: Discontinued Vitamin D3 2000 intl units oral capsule 0 Refill(s) Start Date: 12/28/13 Status: Ordered Results ELECTROLYTES Most recent to 1 oldest [Reference Range]: Sodium Lvl [135-145 140 mEq/L mEq/L] (12/28/13 3:30 PM) Potassium Lvl 4.0 mEq/L [3.5-5.1 mEq/L] (12/28/13 3:30 PM) Chloride Lvl [95-109 105 mEq/L mEq/L] (12/28/13 3:30 PM) CO2 [24-32 mEq/L] 27 mEq/L (12/28/13 3:30 PM) AGAP [10.0-20.0 12.0 mEq/L mEq/L] (12/28/13 3:30 PM) CHEM PANEL Most recent to 1 oldest [Reference Range]: Creatinine Lvl 0.9 mg/dL [0.5-1.4 mg/dL] (12/28/13 3:30 PM) eGFR 86 mL/min/1.73m2 1 *NA* (12/28/13 3:30 PM) BUN [7-22 mg/dL] 11 mg/dL (12/28/13 3:30 PM) B/C Ratio [6-25] 12 (12/28/13 3:30 PM) Glucose Lvl [70-99 62 mg/dL 2 mg/dL] *LOW* (12/28/13 3:30 PM) Total Protein 7.0 g/dL [6.4-8.4 g/dL] (12/28/13 3:30 PM) Albumin Lvl [3.5-5.0 4.0 g/dL g/dL] (12/28/13 3:30 PM) Globulin [2.0-4.0 3.0 g/dL g/dL] (12/28/13 3:30 PM) A/G Ratio [0.7-1.6] 1.3 (12/28/13 3:30 PM) Calcium Lvl 8.8 mg/dL [8.5-10.5 mg/dL] (12/28/13 3:30 PM) ALT [0-65 unit/L] 31 unit/L (12/28/13 3:30 PM) AST [0-37 unit/L] 26 unit/L (12/28/13 3:30 PM) Alk Phos [39-136 103 unit/L unit/L] (12/28/13 3:30 PM) Bili Total [0.2-1.3 0.3 mg/dL mg/dL] (12/28/13 3:30 PM) 1Result Comment: The eGFR is calculated [...] be mul tiplied by the estimated BMI. 2Interpretive Data: Adult reference range values reflect the clinical guidelines of the [place] [employer]. HEMATOLOGY Most recent to 1 oldest [Reference Range]: WBC [3.7-10.4 K/CMM] 5.3 K/CMM (12/28/13 3:30 PM) RBC [4.70-6.10 4.21 M/CMM M/CMM] *LOW* (12/28/13 3:30 PM) Hgb [14.0-18.0 g/dL] 12.7 g/dL *LOW* (12/28/13 3:30 PM) Hct [42.0-54.0 %] 37.3 % *LOW* (12/28/13 3:30 PM) MCV [80.0-94.0 fL] 88.7 fL (12/28/13 3:30 PM) MCH [27.0-31.0 pg] 30.1 pg (12/28/13 3:30 PM) MCHC [32.0-36.0 34.0 g/dL g/dL] (12/28/13 3:30 PM) RDW [11.5-14.5 %] 12.9 % (12/28/13 3:30 PM) Platelet [133-450 130 K/CMM K/CMM] *LOW* (12/28/13 3:30 PM) MPV [7.4-10.4 fL] 12.2 fL *HI* (12/28/13 3:30 PM) Segs [45.0-75.0 %] 52.9 % (12/28/13 3:30 PM) Lymphocytes 31.9 % [20.0-40.0 %] (12/28/13 3:30 PM) Monocytes [2.0-12.0 7.9 % %] (12/28/13 3:30 PM) Eosinophils [0.0-4.0 6.3 % %] *HI* (12/28/13 3:30 PM) Basophils [0.0-1.0 1.0 % %] (12/28/13 3:30 PM) Segs-Bands # 2.8 K/CMM [1.5-8.1 K/CMM] (12/28/13 3:30 PM) Lymphocytes # 1.7 K/CMM [1.0-5.5 K/CMM] (12/28/13 3:30 PM) Monocytes # [0.0-0.8 0.4 K/CMM K/CMM] (12/28/13 3:30 PM) Eosinophils # 0.3 K/CMM [0.0-0.5 K/CMM] (12/28/13 3:30 PM) Basophils # [0.0-0.2 0.1 K/CMM K/CMM] (12/28/13 3:30 PM) RBC Morph Normal (12/28/13 3:30 PM) Plt Morph Normal (12/28/13 3:30 PM) Large Plt [None Slight Seen] *ABN* (12/28/13 3:30 PM) Medications Administered During Your Visit No data available for this section Immunizations Vaccine Date Refusal Reason pneumococcal 23-valent vaccine 12/03/13 Social History Social History Type Response Smoking Status Never smoker, Ready to change: No, Concerns about tobacco use in household: No, Exposure to Tobacco Smoke None, Cigarette Smoking Last 365 Days No, Reg Smoking Cessation Counseling No Assessment and Plan Extracted from: Title: Clinical Document Author: Ben Cai MD Date: 12/17/13 Visit Type: New Patient CC: abdominal pain. History of Present Illness: Thank you for allowing me to participate in the care of this patient 73 year old man comes for evaluation of abdominal pain. Pain is mild to moderate located in the mid abdomen described as pussure without associated factors. He does notice some weight loss recently but denies obvious fevers and chills or night sweats. 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 Endoscopic Bx as well as IR Bx have not yeilded a diagnosis so he is here for possible surgical biopsy. Past Medical History: Reviewed history and no changes required: diabetes Past Surgical History: Reviewed history and no changes required: carpal tunnel-04/2013 Family History Summary: Mother (biol.) - Has Family History of Diabetes - Entered On: 12/17/2013 Risk Factors: Smoked Tobacco Use: Never smoker Drug use: no Alcohol use: no Previous Tobacco Use: Previous Alcohol Use: Review of Systems General See HPI Complains of weight loss. Denies fever, chills and sweats. Eyes Denies double vision and blurred vision. ENT Denies hoarseness and sore throat. CV Denies difficulty breathing at night and chest pain. Resp Denies cough and shortness of breath. GI Denies nausea, vomiting and abdominal pain. Denies urinary frequency and urinary hesitancy. MS Denies stiffness and arthritis. Derm Denies itching and rash. Neuro Denies numbness and tingling. Psych Denies anxiety and depression. Endo Denies cold intolerance and heat intolerance. Heme Denies bleeding and abnormal bruising. Vital Signs: Patient Profile:73 Years Old Male Height:63 inches Weight: 180 pounds BMI:32.00 BSA:1.85 Temp:97.7 degrees F oral Pulse rate:62 / minute BP sittin / 74 (right arm) Cuff size:regular Vitals Entered By: Nadiya Weaver (December 17, 2013 10:34 AM) Physical Exam General: well developed, well nourished, in no acute distress. Head: normocephalic and atraumatic. Eyes: PERRL/EOM intact, conjunctiva and sclera clear. Neck: no masses, thyromegaly, or abnormal cervical nodes. Chest Wall: no deformities or breast masses noted. Lungs: clear bilaterally to auscultation. Heart: chest non-tender; regular rate and rhythm. Abdomen: epigastric mass, epigastric tenderness, without guarding and without rebound. Msk: no deformity Pulses: pulses normal in all 4 extremities. Extremities: no clubbing, cyanosis, edema, or deformity noted. Neurologic: no focal deficits, cranial nerves II-XII grossly intact Skin: intact without lesions or rashes. Psych: alert and cooperative; normal mood and affect; normal attention span and concentration. Impression & Recommendations: Problem # 1: ABDOMINAL OR PELVIC SWELLING, MASS, OR LUMP, EPIGASTRIC (ICD- 789.36) (EJD44-X71.06) Assessment: New Mass concerning for primary malignancy Will offer lap mesenteric mass biopsy Risks and benefits explained in detail All questions answered and they understand Orders: Office Visit, New, Level IV -90255 ([id number]) Problem # 2: DIABETES MELLITUS WITHOUT MENTION OF COMPLICATION, TYPE II OR UNSPECIFIED TYPE, NOT STATED UNCONTROLLED (ICD-250.00) Due to age and DM, will request cardiac clearance He was seen by Dr. Braun previously Will refer to him His updated medication list for this problem includes: Amlodipine Besy-benazepril Hcl Caps (Amlodipine besy-benazepril hcl caps) Glipizide-metformin Hcl 2.5-500 Mg Tabs (Glipizide-metformin hcl) Quinapril Hcl 40 Mg Tabs (Quinapril hcl) Orders: Office Visit, New, Level IV -[id number] ([id number]) Medications Added to Medication List This Visit: 1) Amlodipine Besy-benazepril Hcl Caps (Amlodipine besy-benazepril hcl caps) 2) Glipizide-metformin Hcl 2.5-500 Mg Tabs (Glipizide-metformin hcl) 3) Quinapril Hcl 40 Mg Tabs (Quinapril hcl) Patient Instructions: 1) Refer to cardiology 2) Will schedule surgery post pre op clearance obtained Did you e-prescribe during this visit? No Electronic prescriptions were not sent during this visit. No Electronic prescriptions were not sent during this visit.
--- OUTSIDE RECORDS SUMMARY | 2018-04-23 06:47 | XMS REPORT | Summary of Care ---
Author Organization Unknown Address Unknown Phone Unavailable Encounter [facility]([place]) [id number] Date(s): 09/08/14 - 09/08/14 [facility] [address] [place] [address]- Physician Attending: Silvio Martinez MD Physician Admitting: Silvio Martinez MD Vital Signs No data [...] Refusal Reason pneumococcal 23-valent vaccine 12/03/13 Procedures No data available for this section Social History Social History Type Response Smoking Status Never smoker; Ready to change: No; Concerns about tobacco use in household: No; Exposure to Tobacco Smoke None; Cigarette Smoking Last 365 Days No; Reg Smoking Cessation Counseling No Assessment and Plan No data available for this section
--- OUTSIDE RECORDS SUMMARY | 2018-04-23 06:47 | XMS REPORT | Summary of Care ---
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
--- OUTSIDE RECORDS SUMMARY | 2018-04-23 06:47 | XMS REPORT | CCD ---
Author Author Auto Generated Organization [facility] Address Unknown Phone Unavailable Care Team Providers Care Back Winder Name Role Phone Orlin Braun CP Allergies, Adverse Reactions, Alerts Substance Reaction Status NKDA Active Problem List Condition Effective Dates Status Diabetes mellitus Active Hyperlipidemia Active Hypertension Active Medications Medication Instructions Start Date End Date Status insulin aspart 1 unit, 0.01 mL, Route: SUB-Q, Drug 12/23/2011 12/24/2011 Discontinued form: SOLN, Bedtime, PRN Blood Glucose Results, Start date: 12/23/11 17:13:00, Duration: 30 day, Stop date: 01/22/12 17:12:00 insulin aspart 4 unit, 0.04 mL, Route: SUB-Q, Drug 12/23/2011 12/24/2011 Discontinued form: SOLN, Bedtime, PRN Blood Glucose Results, Start date: 12/23/11 17:13:00, Duration: 30 day, Stop date: 01/22/12 17:12:00 insulin aspart 2 unit, 0.02 mL, Route: SUB-Q, Drug 12/23/2011 12/24/2011 Discontinued form: SOLN, Bedtime, PRN Blood Glucose Results, Start date: 12/23/11 17:13:00, Duration: 30 day, Stop date: 01/22/12 17:12:00 insulin aspart 3 unit, 0.03 mL, Route: SUB-Q, Drug 12/23/2011 12/24/2011 Discontinued form: SOLN, Bedtime, PRN Blood Glucose Results, Start date: 12/23/11 17:13:00, Duration: 30 day, Stop date: 01/22/12 17:12:00 insulin aspart 5 unit, 0.05 mL, Route: SUB-Q, Drug 12/23/2011 12/24/2011 Discontinued form: SOLN, TID-Before Meals, PRN Blood Glucose Results, Start date: 12/23/11 17:13:00, Duration: 30 day, Stop date: 01/22/12 17:12:00 insulin aspart 3 unit, 0.03 mL, Route: SUB-Q, Drug 12/23/2011 12/24/2011 Discontinued form: SOLN, TID-Before Meals, PRN Blood Glucose Results, Start date: 12/23/11 17:13:00, Duration: 30 day, Stop date: 01/22/12 17:12:00 insulin aspart 4 unit, 0.04 mL, Route: SUB-Q, Drug 12/23/2011 12/24/2011 Discontinued form: SOLN, TID-Before Meals, PRN Blood Glucose Results, Start date: 12/23/11 17:13:00, Duration: 30 day, Stop date: 01/22/12 17:12:00 insulin aspart 1 unit, 0.01 mL, Route: SUB-Q, Drug 12/23/2011 12/24/2011 Discontinued form: SOLN, TID-Before Meals, PRN Blood Glucose Results, Start date: 12/23/11 17:13:00, Duration: 30 day, Stop date: 01/22/12 17:12:00 insulin aspart 2 unit, 0.02 mL, Route: SUB-Q, Drug 12/23/2011 12/24/2011 Discontinued form: SOLN, TID-Before Meals, PRN Blood Glucose Results, Start date: 12/23/11 17:13:00, Duration: 30 day, Stop date: 01/22/12 17:12:00 glucagon 1 mg, Route: IM, Drug form: 12/23/2011 12/24/2011 Discontinued PDR/INJ, PRN, PRN Blood Glucose Results, Start date: 12/23/11 17:13:00, Duration: 30 day, Stop date: 01/22/12 17:12:00 Dextrose 50% Syringe 12.5 gm, 25 mL, Route: IVP, Drug 12/23/2011 12/24/2011 Discontinued Form: INJ, PRN, PRN Blood Glucose Results, Start date: 12/23/11 17:13:00, Duration: 30 day, Stop date: 01/22/12 17:12:00 Dextrose 50% Syringe 25 gm, 50 mL, Route: IVP, Drug 12/23/2011 12/24/2011 Discontinued Form: INJ, PRN, PRN Blood Glucose Results, Start date: 12/23/11 17:13:00, Duration: 30 day, Stop date: 01/22/12 17:12:00 Altace 10 mg, 2 cap, Route: PO, Drug form: 12/24/2011 12/24/2011 Discontinued CAP, Daily, Start date: 12/24/11 9:00:00, Duration: 30 day, Stop date: 01/22/12 9:00:00 Saline Flush 0.9% 5 ml, Route: IVP, Drug Form: INJ, 12/23/2011 12/24/2011 Discontinued PRN, PRN Line Flush, Start date: 12/23/11 17:13:00, Duration: 30 day, Stop date: 01/22/12 17:12:00 Saline Flush 0.9% 5 ml, Route: IVP, Drug Form: INJ, 12/23/2011 12/24/2011 Discontinued Q12H, Start date: 12/23/11 21:00:00, Duration: 30 day, Stop date: 01/22/12 9:00:00 morphine Sulfate 2 mg, 1 mL, Route: IVP, Drug form: 12/23/2011 12/24/2011 Discontinued INJ, Q15Min, PRN Chest Pain, Start date: 12/23/11 17:13:00, Duration: 2 doses or times, Stop date: Limited # of times nitroglycerin SL Tab 0.4 mg, 1 tab, Route: SL, Drug 12/23/2011 12/24/2011 Discontinued form: TAB, Q5Min, PRN Chest Pain, Start date: 12/23/11 17:13:00, Duration: 3 doses or times, Stop date: Limited # of times aspirin 325 mg 325 mg, 1 tab, Route: PO, Drug 12/23/2011 12/24/2011 Discontinued tablet, enteric form: ECTAB, Q24H, Start date: coated 12/23/11 18:00:00, Duration: 30 day, Stop date: 01/21/12 18:00:00 olmesartan 10 mg, 2 tab, Route: PO, Drug form: 12/24/2011 12/24/2011 Discontinued TAB, Daily, Start date: 12/24/11 9:00:00, Duration: 30 day, Stop date: 01/22/12 9:00:00 Lipitor 10 mg, 1 tab, Route: PO, Drug form: 12/24/2011 12/24/2011 Canceled TAB, QPM, Start date: 12/24/11 17:00:00, Duration: 30 day, Stop date: 01/22/12 17:00:00 nitroglycerin 0.4 mg 0.4 mg, 1 tab, Route: SL, Drug 12/23/2011 12/24/2011 Discontinued sublingual tablet form: TAB, Q5Min, PRN Chest Pain, Start date: 12/23/11 17:50:00, Duration: 30 day, Stop date: 01/22/12 17:49:00 atropine 0.5 mg, 5 mL, Route: IVP, Drug 12/23/2011 12/24/2011 Discontinued form: INJ, PRN, PRN Bradycardia, Start date: 12/23/11 17:50:00, Duration: 30 day, Stop date: 01/22/12 17:49:00 codeine-promethazine 5 mL, PO, Q4H, PRN, as needed for 12/23/2011 Suspended 10 mg-6.25 mg/5 mL cough, Substitution Allowed, Soft oral syrup Stop quinapril 40 mg oral 40 mg, 1 tab, PO, Daily, 12/23/2011 Suspended tablet Substitution Allowed amLODipine 10 mg 10 mg, 1 tab, PO, Daily, 12/23/2011 Suspended oral tablet Substitution Allowed Glucophage 500 mg, 1 tab, Route: PO, Drug 12/24/2011 12/24/2011 Discontinued form: TAB, Daily, Start date: 12/24/11 9:00:00, Duration: 30 day, Stop date: 01/22/12 9:00:00 lovastatin 20 mg 20 mg, 1 tab, PO, QNoon, 12/23/2011 Suspended oral tablet Substitution Allowed DiaBeta 2.5 mg, 1 tab, Route: PO, Drug 12/24/2011 12/24/2011 Discontinued form: TAB, Daily, Start date: 12/24/11 9:00:00, Duration: 30 day, Stop date: 01/22/12 9:00:00 Janumet 50 mg/500 mg 1 tab, PO, BID, Substitution 12/23/2011 Suspended oral tablet Allowed, Soft Stop Ambien 5 mg, 1 tab, Route: PO, Drug form: 12/23/2011 12/24/2011 Discontinued TAB, Bedtime, PRN Insomnia, Start date: 12/23/11 18:57:00, Duration: 30 day, Stop date: 01/22/12 18:56:00 Tylenol 650 mg, 2 tab, Route: PO, Drug 12/23/2011 12/24/2011 Discontinued form: TAB, Q4H, PRN Pain, Start date: 12/23/11 18:57:00, Duration: 30 day, Stop date: 01/22/12 18:56:00 Saline Flush 0.9% 5 ml, Route: IVP, Drug Form: INJ, 12/23/2011 12/23/2011 Discontinued PRN, PRN Line Flush, Start date: 12/23/11 15:38:00, Duration: 24 hr, Stop date: 12/24/11 15:37:00 quinapril 40 mg, Route: PO, Drug form: TAB, 12/24/2011 12/23/2011 Deleted Daily, Start date: 12/24/11 9:00:00, Duration: 30 day, Stop date: 01/22/12 9:00:00 glipiZIDE-metformin 1 tab, Route: PO, Drug Form: TAB, 12/24/2011 12/23/2011 Deleted 2.5 mg-250 mg oral Daily, Start date: 12/24/11 tablet 9:00:00, Duration: 30 day, Stop date: 01/22/12 9:00:00 lovastatin 20 mg, Route: PO, Drug form: TAB, 12/24/2011 12/23/2011 Deleted QNoon, Start date: 12/24/11 12:00:00, Duration: 30 day, Stop date: 01/22/12 12:00:00 amLODipine 10 mg, 2 tab, Route: PO, Drug form: 12/24/2011 12/24/2011 Discontinued TAB, Daily, Start date: 12/24/11 9:00:00, Duration: 30 day, Stop date: 01/22/12 9:00:00 Vital Signs Most recent to oldest [Reference Range]: 1 2 3 Height 165.10 cm (12/23/2011 17:58:00) 165.10 cm (12/23/2011 15:17:00) Temperature Oral [96.4-99.1 DegF] 98.1 DegF (12/24/2011 12:00:00) 97.9 DegF (12/24/2011 08:00:00) 97.7 DegF (12/24/2011 04:00:00) Systolic Blood Pressure [90-140 mmHg] 123 mmHg (12/24/2011 12:00:00) 129 mmHg (12/24/2011 08:00:00) 127 mmHg (12/24/2011 04:00:00) Diastolic Blood Pressure [60-90 mmHg] 69 mmHg (12/24/2011 12:00:00) 71 mmHg (12/24/2011 08:00:00) 65 mmHg (12/24/2011 04:00:00) Respiratory Rate [14-20 BRMIN] 16 BRMIN (12/24/2011 12:00:00) 16 BRMIN (12/24/2011 08:00:00) 20 BRMIN (12/24/2011 04:00:00) Peripheral Pulse Rate [60-100 bpm] 58 bpm *LOW* (12/24/2011 12:00:00) 55 bpm *LOW* (12/24/2011 08:00:00) 52 bpm *LOW* (12/24/2011 04:00:00) Weight 86.364 kg (12/23/2011 17:58:00) 86.364 kg (12/23/2011 15:17:00) Results BEDSIDE GLUCOSE TESTING Most recent to oldest [Reference Range]: 1 2 3 Gluc POC Lifscn [70-99 mg/dL] 57 mg/dL 1 *LOW* (12/24/2011 16:12:00) 133 mg/dL 2 *HI* (12/24/2011 12:16:00) 101 mg/dL 3 *HI* (12/24/2011 07:31:00) Comment1 Notify RN/MD *NA* (12/24/2011 16:12:00) Notify RN/MD *NA* (12/24/2011 12:16:00) Notify RN/MD *NA* (12/24/2011 07:31:00) 1Interpretive Data: Upper Reportable Limit: 200 mg/dL. 2Interpretive Data: Upper Reportable Limit: 200 mg/dL. 3Interpretive Data: Upper Reportable Limit: 200 mg/dL. CHEMISTRY Most recent to oldest [Reference Range]: 1 2 3 Sodium Lvl [135-145 mEq/L] 139 mEq/L (12/23/2011 15:45:00) Potassium Lvl [3.5-5.1 mEq/L] 4.2 mEq/L (12/23/2011 15:45:00) Chloride Lvl [95-109 mEq/L] 105 mEq/L (12/23/2011 15:45:00) CO2 [24-32 mEq/L] 28 mEq/L (12/23/2011 15:45:00) AGAP [10.0-20.0 mEq/L] 10.2 mEq/L (12/23/2011 15:45:00) Creatinine Lvl [0.5-1.4 mg/dL] 1.0 mg/dL (12/23/2011 15:45:00) BUN [7-22 mg/dL] 16 mg/dL (12/23/2011 15:45:00) Glucose Lvl [70-99 mg/dL] 82 mg/dL 4 (12/23/2011 15:45:00) Calcium Lvl [8.5-10.5 mg/dL] 8.7 mg/dL (12/23/2011 15:45:00) Lipase Lvl [73-393 U/L] 230 U/L (12/23/2011 15:45:00) Total CK [12-191 U/L] 139 U/L (12/24/2011 04:17:00) 162 U/L (12/23/2011 22:00:00) 179 U/L (12/23/2011 15:45:00) CK MB [0.5-3.6 ng/mL] 0.7 ng/mL (12/24/2011 04:17:00) 0.8 ng/mL (12/23/2011 22:00:00) 1.2 ng/mL (12/23/2011 15:45:00) CK MB Index [0.0-2.5] 0.5 (12/24/2011 04:17:00) 0.5 (12/23/2011 22:00:00) 0.7 (12/23/2011:45:00) Troponin-I [0.00-0.40 ng/mL] 0.02 ng/mL (12/24/2011 04:17:00) 0.02 ng/mL (12/23/2011 22:00:00) 0.03 ng/mL (12/23/2011:45:00) BNP [<=100 pg/mL] 9 pg/mL 5 (12/23/2011:45:00) CHD Risk [4.00-7.30] 2.41 *LOW* (12/24/2011 04:17:00) Chol [120-200 mg/dL] 159 mg/dL (12/24/2011 04:17:00) Trig [0-200 mg/dL] 88 mg/dL (12/24/2011 04:17:00) HDL [>=35 mg/dL] 66 mg/dL (12/24/2011 04:17:00) LDL [0-129 mg/dL] 75 mg/dL (12/24/2011 04:17:00) 4Interpretive Data: Adult reference range values reflect the clinical guidelines of the [place] [employer]. 5Interpretive Data: Elevated results are in line with increasing severity of congestive heart failure. Minor elevations between 100 and 300 may be seen with Myocardial Ischemia, Sodium retaining drugs, and compensated/treated heart failure. HEMATOLOGY Most recent to oldest [Reference Range]: 1 2 3 WBC [3.7-10.4 K/CMM] 5.8 K/CMM (12/23/2011:45:00) RBC [4.70-6.10 M/CMM] 4.17 M/CMM *LOW* (12/23/2011:45:00) Hgb [14.0-18.0 g/dL] 12.8 g/dL *LOW* (12/23/2011:45:00) Hct [42.0-54.0 %] 37.9 % *LOW* (12/23/2011:45:00) MCV [80.0-94.0 fL] 91.0 fL (12/23/2011:45:00) MCH [27.0-31.0 pg] 30.7 pg (12/23/2011 15:45:00) MCHC [32.0-36.0 g/dL] 33.7 g/dL (12/23/2011 15:45:00) RDW [11.5-14.5 %] 12.8 % (12/23/2011 15:45:00) Platelet [133-450 K/CMM] 135 K/CMM (12/23/2011 15:45:00) MPV [7.4-10.4 fL] 11.4 fL *HI* (12/23/2011 15:45:00) Segs [45.0-75.0 %] 57.5 % (12/23/2011 15:45:00) Lymphocytes [20.0-40.0 %] 32.5 % (12/23/2011 15:45:00) Monocytes [2.0-12.0 %] 6.2 % (12/23/2011 15:45:00) Eosinophils [0.0-4.0 %] 3.1 % (12/23/2011 15:45:00) Basophils [0.0-1.0 %] 0.7 % (12/23/2011 15:45:00) Segs-Bands # [1.5-8.1 K/CMM] 3.3 K/CMM (12/23/2011 15:45:00) Lymphocytes # [1.0-5.5 K/CMM] 1.9 K/CMM (12/23/2011 15:45:00) Monocytes # [0.0-0.8 K/CMM] 0.4 K/CMM (12/23/2011 15:45:00) Eosinophils # [0.0-0.5 K/CMM] 0.2 K/CMM (12/23/2011 15:45:00) Basophils # [0.0-0.2 K/CMM] 0.0 K/CMM (12/23/2011 15:45:00) PT [12.0-14.7 seconds] 12.9 seconds (12/23/2011 15:45:00) INR [0.85-1.17] 0.97 6 (12/23/2011 15:45:00) PTT [22.9-35.8 seconds] 28.7 seconds 7 (12/23/2011 15:45:00) 6Interpretive Data: RECOMMENDED RANGES FOR PROTIME INR: 2.0-3.0 for most medical and surgical thromboembolic states. 2.5-3.5 for artificial heart valves and recurrent embolism. INR SHOULD BE USED ONLY FOR PATIENTS ON STABLE ANTICOAGULANT THERAPY. 7Interpretive Data: Heparin Therapeutic Range: 57 - 92 Seconds
--- OUTSIDE RECORDS SUMMARY | 2018-04-23 06:47 | XMS REPORT | Summary of Care ---
Author Author Organization Address Unknown Phone Unavailable Encounter HQ [email or web address](FIN) [id number] Date(s): 02/03/16 - 02/03/16 [address] [place] [address]- Discharge Disposition: Home or Self Care Attending [...] Active ed) 1right wrist 2Data migrated from [email or web address] on 01/30/15. Allergies, Adverse Reactions, Alerts Substance Reaction Severity Status NKDA Active Medications No data available for this section Results No data available for this section Immunizations Given and Recorded Vaccine Date Status Refusal Reason pneumococcal 23-valent vaccine 12/03/13 Given Procedures Procedure Date Related Diagnosis Body Site Pancreatic biopsy 12/03/13 Femoral angiogram 2010 Bone marrow aspiration 2007 Social History Social History Type Response Smoking Status Never smoker; Ready to change: No; Concerns about tobacco use in household: No; Exposure to Tobacco Smoke None; Cigarette Smoking Last 365 Days No; Reg Smoking Cessation Counseling No Assessment and Plan No data available for this section
--- OUTSIDE RECORDS SUMMARY | 2018-04-23 06:47 | XMS REPORT | Summary of Care ---
Author Author [facility] Organization [facility] Address Unknown Phone Unavailable Encounter HQ Barbara_vasu(FIN) [id number] Date(s): 02/28/15 - 02/28/15 [facility] [address] [place] [address]- Discharge Disposition: Home Attending Physician: Silvio Martinez MD Admitting Physician: Silvio Martinez MD Vital Signs No data available for this section Problem List Condition Effective Dates Status Health Status Informant Abdominal Resolved mass(Confirmed) Acid Active reflux(Confirmed) Back pain(Confirmed) Active Carpal tunnel Resolved syndrome(Confirmed)1 Cholesterol Resolved level(Confirmed) Diabetes mellitus2 12/17/13 Active Diabetes Active mellitus(Confirmed) Hyperlipidemia(Confi Active rmed) Hypertension(Confirm Active ed) Hypertension(Confirm Active ed) 1right wrist 2Data migrated from [employer] on 01/30/15. Allergies, Adverse Reactions, Alerts Substance Reaction Severity Status NKDA Active Medications No data available for this section Results HEMATOLOGY Most recent to 1 oldest [Reference Range]: WBC [3.7-10.4 K/CMM] 5.5 K/CMM (02/28/15 12:22 PM) RBC [4.70-6.10 3.96 M/CMM M/CMM] *LOW* (02/28/15 12:22 PM) Hgb [14.0-18.0 g/dL] 11.2 g/dL *LOW* (02/28/15 12:22 PM) Hct [42.0-54.0 %] 35.3 % *LOW* (02/28/15 12:22 PM) MCV [80.0-94.0 fL] 89.1 fL (02/28/15 12:22 PM) MCH [27.0-31.0 pg] 28.4 pg (02/28/15 12:22 PM) MCHC [32.0-36.0 31.8 g/dL g/dL] *LOW* (02/28/15:22 PM) RDW [11.5-14.5 %] 17.2 % *HI* (02/28/15 12:22 PM) Platelet [133-450 111 K/CMM K/CMM] *LOW* (02/28/15:22 PM) MPV [7.4-10.4 fL] 11.4 fL *HI* (02/28/15:22 PM) Segs [45.0-75.0 %] 66.0 % (02/28/15 12:22 PM) Bands [0.0-11.0 %] 6.0 % (02/28/15 12:22 PM) Lymphocytes 17.0 % [20.0-40.0 %] *LOW* (02/28/15:22 PM) Atypical Lymphs 0.0 % [<=0.0 %] (02/28/15 12:22 PM) Monocytes [2.0-12.0 5.0 % %] (02/28/15 12:22 PM) Eosinophils [0.0-4.0 1.0 % %] (02/28/15 12:22 PM) Basophils [0.0-1.0 1.0 % %] (02/28/15 12:22 PM) Metamyelocytes 1.0 % [0.0-1.0 %] (02/28/15 12:22 PM) Myelocytes [<=0.0 %] 2.0 % *HI* (02/28/15 12:22 PM) Promyelocytes [<=0.0 1.0 % %] *HI* (02/28/15 12:22 PM) Segs-Bands # 4.0 K/CMM [1.5-8.1 K/CMM] (02/28/15 12:22 PM) Lymphocytes # 0.9 K/CMM [1.0-5.5 K/CMM] *LOW* (02/28/15 12:22 PM) Monocytes # [0.0-0.8 0.3 K/CMM K/CMM] (02/28/15 12:22 PM) Eosinophils # 0.1 K/CMM [0.0-0.5 K/CMM] (02/28/15 12:22 PM) Basophils # [0.0-0.2 0.1 K/CMM K/CMM] (02/28/15 12:22 PM) Tot Cell Ct 100 *NA* (02/28/15 12:22 PM) RBC Morph Normal (02/28/15 12:22 PM) Plt Morph Normal (02/28/15 12:22 PM) Immunizations Vaccine Date Refusal Reason pneumococcal 23-valent [...]
--- OUTSIDE RECORDS SUMMARY | 2018-04-23 06:48 | XMS REPORT | Summary of Care ---
Author Author [facility] Organization [facility] [facility] Address Unknown Phone Unavailable Encounter HQ Barbara_vasu(FIN) [id number] Date(s): 09/22/17 - 09/22/17 [facility] General Surgery [facility] [address] [place] [address]- [phone] Discharge Disposition: Home or Self Care Attending Physician: Ben Cai MD Referring Physician: Silvio Martinez MD Vital Signs No data available for this section Problem List Condition Effective Dates Status Health Status Informant Abdominal Resolved mass(Confirmed) Acid Active reflux(Confirmed) Back pain(Confirmed) Active Carpal tunnel Resolved syndrome(Confirmed)1 Cholesterol Resolved level(Confirmed) Diabetes mellitus2 12/17/13 Active Diabetes Active mellitus(Confirmed) Hyperlipidemia(Confi Active rmed) Hypertension(Confirm Active ed) Hypertension(Confirm Active ed) Simple Active obesity(Confirmed) 1right wrist 2Data migrated from [employer] on 01/30/15. Allergies, Adverse Reactions, Alerts Substance [...]
--- OUTSIDE RECORDS SUMMARY | 2018-04-23 06:48 | XMS REPORT | Summary of Care ---
Author Author LYDIA PETERSON M.D. Organization Unknown Address Unknown Phone Unavailable Care Team Providers Care Tractor Distributor Name Role Phone LYDIA PETERSON M.D. 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 Medications Name Dates Details AmLODIPine Besylate 2.5 MG Oral Tablet Active Lovastatin 20 MG Oral Tablet * Refills: 0 Active MetFORMIN HCl TABS * Refills: 0 Active Pantoprazole Sodium 40 MG Oral Tablet Delayed Release * Refills: 0 Active Allergies and Adverse Reactions Name Dates Details No Known Allergies (Allergy) Status: Active Procedures Procedure Dates Details MRI Internal Auditory Canal w/wo contrast 80075 Date: 13-Apr-2018 History of Eye Surgery Completed Immunization Name Dates Details Immunizations not documented Family History Name Dates Details No pertinent family history (V49.89, Z78.9) Comments: Other Status: Active Social History Name Dates Details - Status: Name Dates Details Never smoker Vital Signs Date Test Result Details [id number] BP Systolic 164 mm[Hg] Status: BP Diastolic 79 mm[Hg] Status: Height 65.6 in Status: Weight 191.375 lb Status: Body Mass Index Calculated 31.27 kg/m2 Status: Body Surface Area Calculated 1.95 m2 Status: Heart Rate 55 /min Status: Results Date Description Value Details Results not documented Plan of Care Name Dates Details Planned Observations Planned Goals not documented Interventions Provided Labs/Procedures/Imaging* MRI Internal Auditory Canal w/wo contrast [id number]; To Be Done: 13 Apr 2018 Plan* 77 yo M with h/o DM, HTN, lymphoma, now with asymmetric left SNHL * - audio reviewed * - MRI * - medically cleared for hearing aids pending MRI * - RTC after MRI Instructions Name Dates Details Instructions not documented Encounters Appointment; RENA MUNIZ Encounter Diagnosis: Problem not documented On: 13-Apr-2018 9:00 Appointment; LYDIA PETERSON M.D. Encounter Diagnosis: Problem not documented On: 13-Apr-2018 9:30
--- OUTSIDE RECORDS SUMMARY | 2018-04-23 06:48 | XMS REPORT | Continuity of Care Document ---
Author Author [facility] Organization [facility] Address Unknown Phone Unavailable Care Team Providers Care Athletic Gear Custodian Name Role Phone MD Ayala, Ben ADAMS Unavailable Insurance Providers Payer name Policy type / Coverage type Policy ID Covered democrat ID Policy Ambrose *SELF PAY* AETNA (POS) *SELF PAY* AETNA (POS) *SELF PAY* *SELF PAY* *SELF PAY* *SELF PAY* *SELF PAY* MEDIC[place] [employer] (POS) *SELF PAY* AETNA (POS) *SELF PAY* *SELF PAY* *SELF PAY* *SELF PAY* *SELF PAY* Encounters Encounter Performer Location Date Office Visit Ben Cai MD [facility] General [facility] [address] Jan 04, 2014 Problems Problem Effective Dates Problem Status ABDOMINAL OR PELVIC SWELLING, MASS, OR LUMP, EPIGASTRIC Dec 17, 2013 Active DIABETES MELLITUS WITHOUT MENTION OF COMPLICATION, TYPE II OR UNSPECIFIED TYPE, NOT STATED UNCONTROLLED Dec 17, 2013 Active Procedures Date Description Comments Dec 17, 2013 smoking status Never smoker Medications Medication Instructions Start Date Status AMLODIPINE BESY-BENAZEPRIL HCL CAPS Dec 17, 2013 Active GLIPIZIDE-METFORMIN HCL 2.5-500 MG TABS Dec 17, 2013 Active QUINAPRIL HCL 40 MG TABS Dec 17, 2013 Active Vital Signs Date Description Test Result Dec 17, 2013 height E&M HEIGHT 63 in Dec 17, 2013 weight E&M WEIGHT 180 lb Dec 17, 2013 temperature E&M TEMPERATURE 97.7 deg f Dec 17, 2013 pulse rate E&M PULSE RATE 62 /min Dec 17, 2013 blood pressure, systolic BP SYSTOLIC 138 mm Hg Dec 17, 2013 blood pressure, diastolic BP DIASTOLIC 74 mm Hg Jan 04, 2014 weight E&M WEIGHT 176 lb Jan 04, 2014 temperature E&M TEMPERATURE 98.2 deg f Jan 04, 2014 pulse rate E&M PULSE RATE 60 /min Jan 04, 2014 blood pressure, systolic BP SYSTOLIC 151 mm Hg Jan 04, 2014 blood pressure, diastolic BP DIASTOLIC 79 mm Hg
--- OUTSIDE RECORDS SUMMARY | 2018-04-23 06:48 | XMS REPORT | Continuity of Care Document ---
Author Author [facility] Organization [facility] Address Unknown Phone Unavailable Care Team Providers Care Commercial Artist Lettering Name Role Phone MD Ayala, Ben ADAMS Unavailable Insurance Providers Payer name Policy type / Coverage type Policy ID Covered republican ID Policy Ambrose *SELF PAY* AETNA (POS) *SELF PAY* AETNA (POS) *SELF PAY* *SELF PAY* *SELF PAY* *SELF PAY* *SELF PAY* [place]IC[place] [employer] (POS) *SELF PAY* AETNA (POS) *SELF PAY* *SELF PAY* *SELF PAY* *SELF PAY* Encounters Encounter Performer Location Date Lab Report Ben Cai MD [facility] [place] Dec 21, 2013 Problems Problem Effective Dates Problem Status ABDOMINAL [...]
--- OUTSIDE RECORDS SUMMARY | 2018-04-23 06:48 | XMS REPORT | Continuity of Care Document ---
Author Author [facility] Organization [facility] Address Unknown Phone Unavailable Care Team Providers Care Investor Name Role Phone MD Ayala, Ben ADAMS Unavailable Insurance Providers Payer name Policy type / Coverage type Policy ID Covered alliance party ID Policy Ambrose *SELF PAY* AETNA (POS) *SELF PAY* AETNA (POS) *SELF PAY* *SELF PAY* *SELF PAY* *SELF PAY* *SELF PAY* [place] [employer] (POS) *SELF PAY* AETNA (POS) *SELF PAY* *SELF PAY* *SELF PAY* *SELF PAY* Encounters Encounter Performer Location Date Office Visit Ben Cai MD [facility] General Surgery [address] Dec 17, 2013 Problems Problem Effective Dates Problem Status [...]
[2018-04-23 09:07] VITALS: BP 132/74
== END | disposition home or self-care (01) ==
LOC: OR 06:42
PROVIDERS: ATTEND Internal Medicine Gastroenterology
DX: Z12.11 Encounter for screening for malignant neoplasm of colon (principal); Z86.010 Personal history of colon polyps; E66.9 Obesity, unspecified; Z68.33 Body mass index [BMI] 33.0-33.9, adult; Z71.3 Dietary counseling and surveillance; I10 Essential (primary) hypertension; E11.9 Type 2 diabetes mellitus without complications; K21.9 Gastro-esophageal reflux disease without esophagitis; Z79.84 Long term (current) use of oral hypoglycemic drugs; K64.8 Other hemorrhoids
CPT/HCPCS: 36415; 82948; 93005; G0105; J2250; 45378